=== PATIENT | female | born 1930 | race Caucasian/White ===

== ENCOUNTER 2016-08-08 12:48 | Emergency (ER) | payer OTHER ==
[2016-08-08 12:54] VITALS: BP 98/64; TEMP 98; BMI 28.3
--- NOTE | 2016-08-08 13:13 | ED.PDOC ---
General ED Provider: Dr. MARIAA SEN Chief Complaint: Cough Stated Complaint: Cough, sick 2 weeks; referred from PCP office Time Seen by Physician: 13:12 Mode of Arrival: Wheelchair Information Source: Patient, Family Primary Care Provider: RONNY PAGE Seen Within Last 72 Hours for Same Complaint By: PCP Nursing and Triage Documentation Reviewed and Agree: Yes Review of Systems - Review Of Systems Constitutional: Reports: Malaise (Pt states actually feels better today than yesterday; insisted she go to PCP today.) Eyes: Reports: No symptoms Ears, Nose, Mouth, Throat: Reports: Throat pain (Sore throat; started the episode) Cardiac: Reports: Irregular heart rate GI: Reports: No symptoms : Reports: No symptoms Musculoskeletal: Reports: No symptoms Skin: Reports: No symptoms Neurological: Reports: No symptoms All Other Systems: Reviewed and Negative Past Medical History - Past Medical History Previously Healthy: No (Multiple chronic problems - cardiac, respiratory) Endocrine: Reports: None Cardiovascular: Reports: CAD, Hypertension, CHF Respiratory: Reports: Bronchitis Hematological: Reports: Anemia Gastrointestinal: Reports: None Genitourinary: Reports: None Neuro/Psych: Reports: None Musculoskeletal: Reports: None Cancer: Reports: None Last Menstrual Period: none - Surgical History General Surgical History: Reports: Hysterectomy - Family History Family History: Reports: Unknown - Social History Smoking Status: Never smoker Hx Substance Use: No Alcohol Screening: None Physical Exam - Physical Exam Appearance: Ill-appearing (mildly - chronic changes apparent) Ill-appearing: Mild Eyes: TOI, EOMI ENT: Nose normal, Oropharynx normal Neck: Supple Respiratory: Airway patent, Breath sounds clear, Breath sounds equal, Breath sounds diminished Cardiovascular: Irregular rhythm GI/: Soft, Nontender Musculoskeletal: Normal strength, ROM intact, No edema Skin: Warm, Dry, Normal color Psychiatric: Affect appropriate, Mood appropriate Re-Evaluation - Re-Evaluation Time of Re-Evaluation: 14:40 Status: Improved Appearance: NAD Lungs: Other Skin: Warm and Dry Neuro: Alert and Oriented X3 Physician Notification - Case Discussed Physician Notified: Dr. Myers Time of Notification: 15:20 (Visited with patient in f[place]; planned DC with ABX and steroid) Critical Care Note - Critical Care Note Total Time (mins): 35 Course - Course Hematology/Chemistry: 08/08/16 13:37 08/08/16 13:37 Orders, Labs, Meds: Lab Review 08/08/16 08/08/16 08/08/16 13:09 13:37 14:40 WBC 5.87 RBC 4.40 Hgb 13.6 Hct 39.9 MCV 90.7 MCH 30.9 MCHC 34.1 RDW Coeff of Estuardo 13.7 Plt Count 176 Immature Gran % (Auto) 0.3 Neut % (Auto) 50.8 Lymph % (Auto) 31.3 [place] % (Auto) 12.3 H Eos % (Auto) 4.8 Baso % (Auto) 0.5 Immature Gran # (Auto) 0.0 Neut # 3.0 Lymph # 1.8 [place] # 0.7 Eos # 0.3 Baso # 0.0 PT 13.3 H INR 1.29 APTT 30.9 Puncture Site Rbrach O2 Saturation 99.0 ABG pH 7.461 H ABG pCO2 41.4 ABG pO2 120.0 H ABG HCO3 29.5 H ABG Total CO2 31 H ABG Base Excess 6 H O2 Delivery Device Nc Oxygen Liter Flow 3.00 Sodium 142 Potassium 3.4 L Chloride 102 Carbon Dioxide 31 Anion Gap 12.4 BUN 14 Creatinine 1.25 Estimated GFR (MDRD) 41.00 BUN/Creatinine Ratio 11.20 Glucose 82 Lactic Acid 11.8 Calcium 9.2 Total Bilirubin 0.41 AST 28 ALT 18 Alkaline Phosphatase 99 Troponin I 0.0240 B-Natriuretic Peptide 1025 H Total Protein 7.6 Albumin 3.4 Globulin 4.2 Albumin/Globulin Ratio 0.81 Procalcitonin < 0.05 Influenza A (Rapid) Negative Influenza B (Rapid) Negative Orders Category Date Time Status ABG DRAW REQUEST Stat CARDIO 08/08/16 13:09 Completed IV ACCESS ONCE CARE 08/08/16 13:05 Active ED APPLY O2 .ONCE EMERGENCY 08/08/16 13:05 Active ED FIXED INCOME MANAGER APPLIED .ONCE EMERGENCY 08/08/16 13:05 Active ED VITAL SIGNS Q1HR EMERGENCY 08/08/16 13:05 Active ARTERIAL BLOOD GAS [ABG] Stat LAB 08/08/16 13:09 Completed BLOOD CULTURE Stat LAB 08/08/16 13:37 Received BNP [B-TYPE NATRIURETIC PEPTIDE] Stat LAB 08/08/16 13:37 Completed CBC W/ AUTO DIFF Stat LAB 08/08/16 13:37 Completed COMPREHENSIVE METABOLIC PANEL Stat LAB 08/08/16 13:37 Completed LACTIC ACID Stat LAB 08/08/16 13:37 Completed MOLECULAR GROUP A STREP Stat LAB 08/08/16 14:40 Results PARTIAL THROMBOPLASTIN TIME Stat LAB 08/08/16 13:37 Completed PROCALCITONIN Stat LAB 08/08/16 13:37 Completed PT WITH INR Stat LAB 08/08/16 13:37 Completed RAPID FLU A/B Stat LAB 08/08/16 14:40 Completed STREP SCREEN Stat LAB 08/08/16 14:40 Results TROPONIN I Stat LAB 08/08/16 13:37 Completed Dexamethasone 4 mg/ml Inj [Decadron 4 mg/ml Sdv] MEDS 08/08/16 15:27 Discontinued 4 mg IM ONCE STA CHEST, 1V AP ONLY Stat RADS 08/08/16 13:05 Completed Medications Discontinued Medications Generic Name Dose Route Start Last Admin Trade Name Freq PRN Reason Stop Dose Admin Dexamethasone Sodium Phosphate 4 mg 08/08/16 15:27 08/08/16 15:34 Decadron 4 Mg/Ml Sdv IM 08/08/16 15:28 4 mg ONCE STA Administration Vital Signs: Temp Pulse Resp BP Pulse Ox 08/08/16 12:49 98.0 F 107 H 22 98/64 93 L Departure - Departure Time of Disposition: 15:30 Disposition: HOME SELF-CARE Discharge Problem: Upper respiratory infection Instructions: Upper Respiratory Infection (ED) Condition: Stable Pt referred to PMD for follow-up: Yes (Call for appointment) Additional Instructions: Take antibiotics as prescried (Keflex); follow up with primary care - call for appointment. Prescriptions: Cephalexin [Keflex] 500 mg PO Q8HR #21 capsule Allergies/Adverse Reactions: Allergies Pumpkin Adverse Reaction (Severe, Uncoded 08/08/16 12:54) Anaphylaxis Home Medications: Ambulatory Orders Diazepam [Valium] 5 mg PO Q12HR 05/11/14 Escitalopram Oxalate [Lexapro] 20 mg PO DAILY 05/11/14 Gabapentin [Neurontin] 300 mg PO BID 05/11/14 Multivitamin [Multi Vitamin Daily] 1 each PO DAILY 05/11/14 Nitroglycerin [Nitrostat] 0.4 mg SL Q5MIN X 3 DOSES PRN 05/11/14 Potassium Chloride [K-Dur] 20 meq PO DAILY 05/11/14 Rivaroxaban [Xarelto] 20 mg PO QPM 05/11/14 Tramadol HCl 50 mg PO TID PRN 05/11/14 Butalbital/Aspirin/Caffeine [Efqgqquatm-NPE-Criaagbd Cap] 1 each PO QID PRN 04/16 Pantoprazole Sodium [Protonix] 20 mg PO DAILY 07/13/14 Bisacodyl [Dulcolax] 5 mg PO MOWEFR PRN 08/08/16 Carvedilol [Coreg] 6.25 mg PO BEDTIME 08/08/16 Carvedilol [Coreg] 12.5 mg PO DAILY 08/08/16 Cephalexin [Keflex] 500 mg PO Q8HR #21 capsule 08/08/16 Diphenhydramine HCl [Benadryl] 25 mg PO PRN PRN 08/08/16 Furosemide [Lasix Tab] 20 mg PO QDAC 08/08/16 Ondansetron HCl [Zofran] 4 mg PO BID PRN 08/08/16 Oxycodone HCl [Oxycodone] 5 mg PO Q4H PRN 08/08/16 Disposition Discussed With: Patient, Family
[2016-08-08 13:50] LABS: BASOPHILS % (AUTO) 0.5 % (0.0-3.0); EOSINOPHILS # (AUTO) 0.3 K/ul (0.0-0.7); EOSINOPHILS % (AUTO) 4.8 % (0.0-7.0); HEMATOCRIT 39.9 % (37.0-47.0); HEMOGLOBIN 13.6 g/dl (12.0-16.0); IMMATURE GRANULOCYTE % (AUTO) 0.3 % (0.0-5.0); LYMPHOCYTES # (AUTO) 1.8 K/uL (0.60-3.4); LYMPHOCYTES % (AUTO) 31.3 (10.0-50.0); MEAN CORPUSCULAR HEMOGLOBIN 30.9 pg (27.0-31.0); MEAN CORPUSCULAR HGB CONC 34.1 (31.8-35.4); MEAN CORPUSCULAR VOLUME 90.7 fl (81.0-99.0); MONOCYTES # (AUTO) 0.7 K/uL (0.4-2.0); MONOCYTES % (AUTO) 12.3 (0-10); NEUTROPHILS % (AUTO) 50.8; PLATELET COUNT 176 10^3/uL (140-440); WHITE BLOOD COUNT 5.87 K/ul (4.6-10.2)
--- NOTE | 2016-08-08 13:54 | DI ---
EXAM: CHEST FRONTAL VIEW HISTORY: Cough. COMPARISON: 07/15/2014 FINDINGS: Cardiomegaly is stable. Mild to moderate aortic atherosclerosis. No notable vascular con gestion or central interstitial edema. No pleural fluid, pneumothorax or airspace consolidation. IMPRESSION: Cardiomegaly. No definite consolidated pneumonia. If symptoms persist, consider follow up with full inspiration, standing two-view chest radiography using PA and lateral technique.
[2016-08-08 14:03] LABS: ABG BASE EXCESS 6 (-2.0-2.0); ABG HCO3 29.5 (22.0-26.0); ABG PCO2 41.4 mmHg (35-45); ABG PH 7.461 (7.35-7.45)
[2016-08-08 14:04] LABS: ABG TCO2 31 (22.0-28.0)
[2016-08-08 14:08] LABS: ALBUMIN 3.4 g/dL (3.4-5.0); ALBUMIN/GLOBULIN RATIO 0.81; ANION GAP 12.4; BILIRUBIN,TOTAL 0.41 mg/dL (0.00-1.20); BUN/CREATININE RATIO 11.2; CALCIUM 9.2 mg/dL (8.2-10.2); CREATININE 1.25 mg/dL (0.60-1.30); POTASSIUM 3.4 mmol/L (3.5-5.10); TOTAL PROTEIN 7.6 g/dL (5.8-8.1)
[2016-08-08 14:15] LABS: PARTIAL THROMBOPLASTIN TIME 30.9 SEC (23.9-40.0); PROTHROMBIN TIME 13.3 SEC (9.3-11.0)
[2016-08-08 15:08] LABS: FLU INTERNAL QC INTERNAL QC VALID; RAPID FLU A NEGATIVE (NEGATIVE); RAPID FLU B NEGATIVE (NEGATIVE)
[2016-08-08] MEDS: DECADRON 4 MG/ML SDV IM STA (15:34)
== END 2016-08-08 15:56 | disposition home or self-care (01) ==
LOC: ED 12:48
DX: J06.9 Acute upper respiratory infection, unspecified (principal); I10 Essential (primary) hypertension; I25.10 Atherosclerotic heart disease of native coronary artery without angina pectoris; I50.9 Heart failure, unspecified; Z79.899 Other long term (current) drug therapy
CPT/HCPCS: 36415; 80053; 82803; 83605; 83880; 84145; 84484; 85025; 85610; 85730; 87040; 87651; 87804; 87880; 96372; 99283

== ENCOUNTER 2017-04-08 13:14 | Inpatient (IN) ==
[2017-04-08] MEDS ORDERED: SODIUM CHLORIDE 1,000 ML IV ONE (13:30)
[2017-04-08 13:40] LABS: ABG BASE EXCESS 2 (-2.0-2.0); ABG HCO3 24.7 (22.0-26.0); ABG PCO2 29.3 mmHg (35-45); ABG PH 7.534 (7.35-7.45); ABG TCO2 26 (22.0-28.0)
--- NOTE | 2017-04-08 14:03 | DI ---
EXAM: Chest one view HISTORY: Cough COMPARISON: 08/08/2016 TECHNIQUE: Single view of the chest was performed FINDINGS: Left-sided cardiac pacer. No airspace consolidation. Minimal chronic fissural thickening on the right There is no pleural effusion or pneumothorax. The heart is enlarged and unchanged in size. The mediastinal contour is unchanged, noting atherosclerosis. There are no acute abnormalitie s of the bones. IMPRESSION: Cardiomegaly. No acute cardiopulmonary process.
[2017-04-08 14:20] LABS: BASOPHILS % (AUTO) 0.7 % (0.0-3.0); EOSINOPHILS # (AUTO) 0.1 K/ul (0.0-0.7); HEMATOCRIT 48.5 % (37.0-47.0); HEMOGLOBIN 16.6 g/dl (12.0-16.0); IMMATURE GRANULOCYTE % (AUTO) 0.2 % (0.0-5.0); LYMPHOCYTES # (AUTO) 1.6 K/uL (0.60-3.4); LYMPHOCYTES % (AUTO) 26.2 (10.0-50.0); MEAN CORPUSCULAR HEMOGLOBIN 31.6 pg (27.0-31.0); MEAN CORPUSCULAR HGB CONC 34.2 (31.8-35.4); MEAN CORPUSCULAR VOLUME 92.2 fl (81.0-99.0); MONOCYTES # (AUTO) 0.5 K/uL (0.4-2.0); MONOCYTES % (AUTO) 8.6 (0-10); NEUTROPHILS # (AUTO) 3.8 K/ul (2.0-6.9); NEUTROPHILS % (AUTO) 62.3; PLATELET COUNT 140 10^3/uL (140-440); RED BLOOD COUNT 5.26 10^6/ul (4.20-5.40); WHITE BLOOD COUNT 6.03 K/ul (4.6-10.2)
[2017-04-08 14:36] LABS: PARTIAL THROMBOPLASTIN TIME 31.8 SEC (23.9-40.0); PROTHROMBIN TIME 20.7 SEC (9.3-11.0)
--- NOTE | 2017-04-08 14:51 | ED.PDOC ---
General ED Provider: Dr. SALVADOR TURNER Chief Complaint: Dizziness Stated Complaint: DIZZINESS Time Seen by Physician: 13:15 Mode of Arrival: Wheelchair Information Source: Patient, Other Exam Limitations: No limitations Primary Care Provider: RONNY PAGE Nursing and Triage Documentation Reviewed and Agree: Yes Neurological Complaint Exam - Dizziness Complaint/Exam Last Known Well: 2 DAYS AGO C/O WEAKNESS NO PAIN Onset: Gradual Duration: 2 DAYS Symptoms Are: Still present Timing: Constant Episodes Lasting: Days Initial Severity: Moderate Current Severity: Moderate Character: Reports: Lightheaded, Weak Aggravating: Reports: None Alleviating: Reports: Rest Associated Signs and Symptoms: Denies: Nausea, Vomiting, Diaphoresis, Tinnitus, Chest pain, Short of air, Palpitations, Unsteady gait, GI blood loss, Visual changes, Decreased oral intake, Change in medication, Change in diet, OTC meds, Loss of balance Cardiac Risk Factors: Reports: Hypertension, CHF, CAD CVA Risk Factors: Reports: Hypertension, CAD Related Surgical History: Reports: None JVD Present: No Carotid Bruit Present: No Glascow Coma Scale (see protocol): 15 Nystagmus Present: No Gag Reflex Present: Yes Meningeal Signs Positive: No Focal Weakness: Present: None Focal Sensory Loss: Present: None Gait: Unable [id number]-[id number]: Normal Findings Babinski Sign: Negative Right, Negative Left Differential Diagnoses: Anxiety, Dysrhythmia, Hypovolemia, Metabolic abnormalities, Vasovagal reaction Quality Indicators for Cardiac Chest Pain: EKG in 10min. Review of Systems - Review Of Systems Constitutional: Reports: Malaise, Weakness Eyes: Reports: No symptoms Ears, Nose, Mouth, Throat: Reports: No symptoms Respiratory: Reports: No symptoms Cardiac: Reports: No symptoms GI: Reports: No symptoms : Reports: No symptoms Musculoskeletal: Reports: No symptoms Skin: Reports: No symptoms Neurological: Reports: No symptoms Endocrine: Reports: No symptoms Hematologic/Lymphatic: Reports: No symptoms All Other Systems: Reviewed and Negative Past Medical History - Past Medical History Previously Healthy: No (Multiple chronic problems - cardiac, respiratory) Endocrine: Reports: None Cardiovascular: Reports: CAD, Hypertension, CHF Respiratory: Reports: Bronchitis Hematological: Reports: Anemia Gastrointestinal: Reports: None Genitourinary: Reports: None Neuro/Psych: Reports: None Musculoskeletal: Reports: None Cancer: Reports: None Last Menstrual Period: none - Surgical History General Surgical History: Reports: Hysterectomy - Family History Family History: Reports: Unknown - Social History Smoking Status: Never smoker Hx Substance Use: No Alcohol Screening: None Physical Exam - Physical Exam Appearance: Ill-appearing Ill-appearing: Moderate Pain Distress: Moderate Eyes: TOI, EOMI, Conjunctiva clear ENT: Dry mucosa Respiratory: Airway patent, Breath sounds clear, Breath sounds equal, Respirations nonlabored Cardiovascular: RRR, Pulses normal, No rub, No murmur GI/: Soft, Nontender, No masses, Bowel sounds normal, No Organomegaly Musculoskeletal: Normal strength, ROM intact, No edema, No calf tenderness Skin: Warm, Dry, Normal color Neurological: Sensation intact, Motor intact, Reflexes intact, Cranial nerves intact, Alert, Oriented Psychiatric: Affect appropriate, Mood appropriate Physician Notification - Case Discussed Physician Notified: KAYLEE Time of Notification: 14:54 Admit To: Inpatient Critical Care Note - Critical Care Note Total Time (mins): 0 Course - Course Hematology/Chemistry: 04/08/17 14:09 Orders, Labs, Meds: Lab Review 04/08/17 04/08/17 04/08/17 13:35 14:09 14:09 WBC 6.03 RBC 5.26 Hgb 16.6 H Hct 48.5 H MCV 92.2 MCH 31.6 H MCHC 34.2 RDW Coeff of Estuardo 14.7 Plt Count 140 Immature Gran % (Auto) 0.2 Neut % (Auto) 62.3 Lymph % (Auto) 26.2 [place] % (Auto) 8.6 Eos % (Auto) 2.0 Baso % (Auto) 0.7 Immature Gran # (Auto) 0.0 Neut # 3.8 Lymph # 1.6 [place] # 0.5 Eos # 0.1 Baso # 0.0 PT 20.7 H INR 2.07 APTT 31.8 Puncture Site R brach O2 Saturation 99.0 ABG pH 7.534 H* ABG pCO2 29.3 L ABG pO2 113.0 H ABG HCO3 24.7 ABG Total CO2 26 ABG Base Excess 2 [place] Test + O2 Delivery Device Nc Oxygen Liter Flow 2.00 Orders Category Date Time Status ABG DRAW REQUEST Stat CARDIO 04/08/17 13:33 Completed EKG-(ED ONLY) Stat CARDIO 04/08/17 13:33 Completed ED IV/MEDIPORT/POWERPORT .ONCE EMERGENCY 04/08/17 13:33 Active ABG Stat LAB 04/08/17 13:35 Completed B-TYPE NATRIURETIC PEPTIDE Stat LAB 04/08/17 14:09 Received BLOOD CULTURE (ED ONLY) Stat LAB 04/08/17 14:09 Received CBC W/ AUTO DIFF Stat LAB 04/08/17 14:09 Completed COMPREHENSIVE METABOLIC PANEL Stat LAB 04/08/17 14:09 Received CREATINE KINASE Stat LAB 04/08/17 14:09 Received FREE T4 (FREE THYROXINE) Stat LAB 04/08/17 14:09 Received LACTIC ACID Stat LAB 04/08/17 14:09 Received PARTIAL THROMBOPLASTIN TIME Stat LAB 04/08/17 14:09 Completed PROCALCITONIN Stat LAB 04/08/17 14:09 Received PT WITH INR Stat LAB 04/08/17 14:09 Completed THYROID STIMULATING HORMONE Stat LAB 04/08/17 14:09 Received TROPONIN I Stat LAB 04/08/17 14:09 Received URINALYSIS C & S IF INDICATED Stat LAB 04/08/17 13:32 Uncollected 0.9 % Sodium Chloride [Saline Flush] MEDS 04/08/17 13:32 Active 1 syr IVF PRN PRN CHEST, 1V AP ONLY Stat RADS 04/08/17 13:32 Completed Medications Generic Name Dose Route Start Last Admin Trade Name Freq PRN Reason Stop Dose Admin Sodium Chloride 1 syr 04/08/17 13:32 Saline Flush IVF PRN PRN To flush IV Vital Signs: Temp Pulse Resp BP Pulse Ox 04/08/17 13:15 93.8 F L 108 H 22 101/76 0 L Departure - Departure Time of Disposition: 14:54 Disposition: ADMITTED INPATIENT Discharge Problem: Dizziness, Weakness generalized, Afib Instructions: A-fib (Atrial Fibrillation) (ED) Condition: Good Pt referred to PMD for follow-up: Yes Allergies/Adverse Reactions: Allergies Pumpkin Adverse Reaction (Severe, Uncoded 04/08/17 13:23) Anaphylaxis Home Medications: Ambulatory Orders Diazepam [Valium] 5 mg PO Q12HR 05/11/14 Gabapentin [Neurontin] 300 mg PO TID PRN 05/11/14 Multivitamin [Multi Vitamin Daily] 1 each PO DAILY 05/11/14 Nitroglycerin [Nitrostat] 0.4 mg SL Q5MIN X 3 DOSES PRN 05/11/14 Potassium Chloride [K-Dur] 20 meq PO DAILY 05/11/14 Rivaroxaban [Xarelto] 20 mg PO QPM 05/11/14 Tramadol HCl 50 mg PO TID PRN 05/11/14 Butalbital/Aspirin/Caffeine [Rxjgbvyanw-IIT-Tnsjjrbn Cap] 1 each PO Q6H PRN 04/16 Furosemide [Lasix Tab] 20 mg PO QDAC 08/08/16 Ondansetron HCl [Zofran] 4 mg PO Q8H 08/08/16 Oxycodone HCl [Oxycodone] 5 mg PO Q4H PRN 08/08/16 Carvedilol [Coreg] 1.56 mg PO BID 04/08/17 Diltiazem HCl [Cardizem Cd] 180 mg PO DAILY 04/08/17 Hyoscyamine Sulfate [Levsin] 0.125 mg PO TID PRN 04/08/17 Disposition Discussed With: Patient
[2017-04-08] MEDS ORDERED: NITROSTAT SL PRN (14:58)
[2017-04-08] MEDS ORDERED: SODIUM CHLORIDE 1,000 ML IV SCH ×3 (15:00→16:00)
[2017-04-08 15:15] LABS: ALBUMIN 3.3 g/dL (3.4-5.0); ALBUMIN/GLOBULIN RATIO 0.87; BILIRUBIN,TOTAL 1.04 mg/dL (0.00-1.20); BUN/CREATININE RATIO 11.04; CALCIUM 9.6 mg/dL (8.2-10.2); CREATININE 1.63 mg/dL (0.60-1.30); POTASSIUM 3.8 mmol/L (3.5-5.10); TOTAL PROTEIN 7.1 g/dL (5.8-8.1); TROPONIN I 0.033 ng/ml (0.0000-0.4000)
[2017-04-08 15:52] LABS: ANION GAP 16.8
[2017-04-08] MEDS ORDERED: DECADRON 4 MG/ML SDV IM STA (15:58)
[2017-04-08 16:02] VITALS: BMI 23.5
[2017-04-08] MEDS: XARELTO PO SCH (16:30)
[2017-04-08] MEDS: COREG PO SCH (16:31)
[2017-04-08] MEDS ORDERED: NON-FORMULARY MEDICATION (Rivaroxaban [Xarelto] 20 MG) PO SCH (17:00)
[2017-04-08] MEDS ORDERED: COREG PO SCH (17:30)
[2017-04-08] MEDS: VALIUM PO SCH (20:29)
[2017-04-08 21:34] LABS: TROPONIN I 0.035 ng/ml (0.0000-0.4000)
[2017-04-09] MEDS: LASIX TAB PO SCH (05:38)
[2017-04-09 05:50] LABS: BASOPHILS % (AUTO) 0.3 % (0.0-3.0); HEMATOCRIT 45.6 % (37.0-47.0); HEMOGLOBIN 15.6 g/dl (12.0-16.0); IMMATURE GRANULOCYTE % (AUTO) 0.3 % (0.0-5.0); LYMPHOCYTES # (AUTO) 0.9 K/uL (0.60-3.4); LYMPHOCYTES % (AUTO) 24.2 (10.0-50.0); MEAN CORPUSCULAR HEMOGLOBIN 31.7 pg (27.0-31.0); MEAN CORPUSCULAR HGB CONC 34.2 (31.8-35.4); MEAN CORPUSCULAR VOLUME 92.7 fl (81.0-99.0); MONOCYTES # (AUTO) 0.2 K/uL (0.4-2.0); MONOCYTES % (AUTO) 4.3 (0-10); NEUTROPHILS # (AUTO) 2.6 K/ul (2.0-6.9); NEUTROPHILS % (AUTO) 70.9; PLATELET COUNT 139 10^3/uL (140-440); RED BLOOD COUNT 4.92 10^6/ul (4.20-5.40); WHITE BLOOD COUNT 3.72 K/ul (4.6-10.2)
[2017-04-09 06:21] LABS: ALBUMIN/GLOBULIN RATIO 0.81; ANION GAP 12.5; BILIRUBIN,TOTAL 0.64 mg/dL (0.00-1.20); BUN/CREATININE RATIO 12.9; CALCIUM 9.2 mg/dL (8.2-10.2); CREATININE 1.24 mg/dL (0.60-1.30); POTASSIUM 3.5 mmol/L (3.5-5.10); TOTAL PROTEIN 6.7 g/dL (5.8-8.1)
[2017-04-09] MEDS ORDERED: LASIX TAB PO SCH (06:30)
[2017-04-09 06:31] LABS: TROPONIN I 0.021 ng/ml (0.0000-0.4000)
[2017-04-09] MEDS ORDERED: COREG PO SCH (08:28)
--- NOTE | 2017-04-09 08:41 | HP ---
DATE OF SERVICE: 04/08/17 REASON FOR HOSPITALIZATION/HISTORY OF PRESENT ILLNESS: This is an 87 year old female who presented to our office. Her blood pressure was extremely low, she was pale and diaphoretic. Her blood was unreadable in our office she was brought to the emergency room for further evaluation and then she is admitted to be monitored. PAST MEDICAL HISTORY: Dilated cardiomyopathy Bilateral sciatica Severe COPD History of CHF Atrial fibrillation Depression Dyslipidemia Hypertension Permanent pacemaker Past ejection fraction 30% PAST SURGICAL HISTORY: Status post pacemaker Status post cholecystectomy REVIEW OF SYSTEMS: CONSTITUTIONAL: No night sweats. Weakness, fatigue, diaphoretic and pale. No fever or chills. HEENT: Eyes: No visual changes. No eye pain. No eye discharge. ENT: No runny nose. No epistaxis. No sinus pain. No sore throat. No odynophagia. No ear pain. No congestion. RESPIRATORY: Cough, no congestion. No hemoptysis. Shortness of breath. CARDIOVASCULAR: No angina symptoms. No CHF symptoms. No atypical chest pain for CAD. No palpitations. No orthopnea. GASTROINTESTINAL: No abdominal pain. Nausea. No diarrhea or constipation. No hematemesis. No hematochezia. GENITOURINARY: No urgency. No frequency. No dysuria. No hematuria. No obstructive symptoms. No discharge. No pain. No significant abnormal bleeding. MUSCULOSKELETAL: No musculoskeletal pain. No joint swelling. No arthritis. Generalized weakness. The patient is unable to hold her head up. NEUROLOGICAL: No headache. No neck pain. No syncope. No seizures. No dizziness. Somewhat alert. The patient is in wheelchair. PSYCHIATRIC: Not anxious. No depression. No suicidal thoughts. No homicidal thoughts. SKIN: No rash. No lesions. No wounds. Intact, pale, dry and sweaty. ENDOCRINE: No unexplained weight loss. No weight gain. HEMATOLOGIC/LYMPHATIC: No anemia. No purpura. No petechiae. No prolonged or excessive bleeding. No palpable lymph nodes. PERSONAL/FAMILY/SOCIAL HISTORY: The patient currently resides at home with her , Dipesh. She is also accompanied by Allyn, her daughter. She is a nonsmoker. She denies any alcohol or illicit drug use. She has been in a wheelchair and partially dependent of her ADL's for quite some time. MEDICATIONS: Nitrostat 0.4mg SL Q 5 minutes x3 doses PRN Valium 5mg PO Q 12 hours Tramadol HCL 50mg PO three times a day PRN Neurontin 300mg PO three times a day PRN K-Dur 20 meq PO daily Multi Vitamin PO daily Xarelto 20mg PO QPM Zqguxsaznd-AEE-Fzyergoi cap one PO Q 6 hour PRN Zofran 4mg PO Q 8 hours Lasix 20mg PO QDAC Coreg 1.56mg PO twice a day Levsin 0.125mg Po three times a day PRN Cardizem Cd 180mg PO daily ALLERGIES: Pumpkin PHYSICAL EXAMINATION: VITAL SIGNS: Temperature 93, heart rate 54, oxygen 97%, blood pressure unreadable. HEENT: Head normocephalic, atraumatic. Eyes: Extraocular muscles are intact. Pupils are equal, round and reactive to light and accommodation. Ears: No lesions. Nose appeared normal. Throat: No exudate or erythema. NECK: Supple. No JVD, no carotid bruit. No lymphadenopathy or thyromegaly. LUNGS: Severely diminished breath sounds bilaterally. Clear to auscultation. Percussion note normal. Chest symmetrical. HEART: S1, S2, no S3. No murmurs, clicks or rubs. No cyanosis or clubbing. No ascites. Pulses: Dorsalis pedis and posterior tibial pulses +1 to +2 both sides. Pace rhythm, irregular in atrial fibrillation. ABDOMEN: Soft. Nontender. Bowel sounds active times four quadrants. No CVA tenderness. No mass felt. EXTREMITIES: No edema. Full range of motion of all extremities, equal. The patient is extremely weak and cachetic. NEUROLOGIC: No focal deficit. Cranial nerves II through XII are grossly intact. No headache, no double vision or headache. She is somewhat alert and oriented to person. SKIN: Not dry. Intact. Turgor - normal. Pale,clammy and cool. LYMPHATIC: No palpable lymph nodes/no lymphedema. MUSCULOSKELETAL: Normal joints with no swelling. Muscle tone is normal. LABS: ABG on 2 liters pH 7.534, pCO2 29.3, pO2 113, base excess of 2, bicarb 24.7, TCO2 26, O2 sat 99. Sodium 143, potassium 3.8, BUN 18, creatinine 1.63, glucose 135, bilirubin 1.04, AST 42, ALT 32, CK 34, Troponin 0.03, total protein 7.1, alkaline phosphatase 111, procalcitonin less than 0.05, lactic acid 21.6, BNP 927. Chest x-ray shows cardiomegaly with no acute cardiac pulmonary process. ASSESSMENT: 1. Hypotension 2. Hyperventilation 3. Generalized weakness 4. Dehydration 5. Shortness of breath PLAN: 1. Admit to the floor 2. Routine telemetry orders 3. CBC and CMP daily 4. O2 at 2 liters 5. IV fluids D5 1/2 normal saline at 75cc an hour 6. Repeat ABG's in the morning 7. Urine for urinalysis, culture and sensitivity 8. Blood cultures times two 9. Will do echo Will follow closely. TIME SPENT: More than 70 minutes. MTDD
[2017-04-09] MEDS: VALIUM PO SCH ×2 (09:20→19:59)
[2017-04-09] MEDS: CARDIZEM CD PO SCH (09:20)
[2017-04-09] MEDS: K-DUR PO SCH (09:20)
[2017-04-09] MEDS: COREG PO SCH ×3 (09:21→16:36)
--- NOTE | 2017-04-09 11:42 | PCM.PROG ---
Attending Provider: ATTENDING PROVIDER: Dr. RONNY PAGE DATE OF SERVICE: 04/09/17 SUBJECTIVE: This 87 year old WHITE/ F was hospitalized 04/08/17. The patient is hospitalized with weakness and hypotension. REVIEW OF SYSTEMS: CONSTITUTIONAL: No night sweats. No fatigue. No fever or chills. HEENT: Eyes: No visual changes. No eye pain. No eye discharge. ENT: No runny nose. No epistaxis. No sinus pain. No odynophagia. No congestion. RESPIRATORY: No cough, no congestion. No hemoptysis. No shortness of breath. CARDIOVASCULAR: No angina symptoms. No CHF symptoms. No atypical chest pain for CAD. No palpitations. No orthopnea.. GASTROINTESTINAL: Appetite is improved. No abdominal pain. No nausea or vomiting. No diarrhea or constipation. No hematemesis. No hematochezia. GENITOURINARY: No urgency. No frequency. No dysuria. No hematuria. No obstructive symptoms. No discharge. No pain. No significant abnormal bleeding. MUSCULOSKELETAL: No musculoskeletal pain; no joint swelling. NEUROLOGICAL: Awake, alert, oriented to time, place and person. No headache. No neck pain. No syncope. No seizures. No dizziness. PSYCHIATRIC: Not anxious. No depression. No suicidal thoughts. No homicidal thoughts. SKIN: No rash. No lesions. No wounds. ENDOCRINE: No unexplained weight loss. No weight gain. HEMATOLOGIC/LYMPHATIC: No anemia. No purpura. No petechiae. No prolonged or excessive bleeding. No palpable lymph nodes. PHYSICAL EXAMINATION: GENERAL: The patient is awake, alert and oriented, lying in bed in no distress. VITAL SIGNS: Temperature 97.5 F, Pulse 81, Respiratory Rate 16, BP 103/61, Pulse Ox 95% HEENT: Head normocephalic, atraumatic. Eyes: Extraocular muscles are intact. Pupils are equal, round and reactive to light and accommodation. Ears: No lesions. Nose appeared normal. Throat: No exudate or erythema. NECK: Supple. No JVD, no carotid bruit. No lymphadenopathy or thyromegaly. LUNGS: Decreased breath sounds. Clear to auscultation. Percussion note normal. Chest symmetrical. HEART: S1, S2, no S3. No murmurs. No cyanosis or clubbing. No ascites. Pulses: Dorsalis pedis and posterior tibial pulses +1 to +2 both sides. ABDOMEN: Soft. Non-tender. Bowel sounds active. No CVA tenderness. No mass felt. EXTREMITIES: No edema. Full range of motion of all extremities, equal. NEUROLOGIC: No focal deficit. Cranial nerves II through XII are grossly intact. No headache, no double vision or headache. SKIN: Warm, dry, and intact. Turgor-better. LYMPHATIC: No palpable lymph nodes/no lymphedema. MUSCULOSKELETAL: Normal joints with no swelling. Muscle tone is normal. LAB REVIEW: 04/09/17 05:04 04/09/17 05:04 04/09/17 05:04: Sodium 142, Potassium 3.5, Chloride 104, Carbon Dioxide 29, Anion Gap 12.5, BUN 16, Creatinine 1.24, Estimated GFR (MDRD) 41.00, BUN/ Creatinine Ratio 12.90, Glucose 135 H, Calcium 9.2, Total Bilirubin 0.64, AST 36 , ALT 31, Alkaline Phosphatase 102, Total Protein 6.7, Albumin 3.0 L, Globulin 3.7, Albumin/Globulin Ratio 0.81 04/09/17 05:04: WBC 3.72 L, RBC 4.92, Hgb 15.6, Hct 45.6, MCV 92.7, MCH 31.7 H, MCHC 34.2, RDW Coeff of Estuardo 14.7, Plt Count 139 L, Immature Gran % (Auto) 0.3, Neut % (Auto) 70.9, Lymph % (Auto) 24.2, [place] % (Auto) 4.3, Eos % (Auto) 0.0, Baso % (Auto) 0.3, Immature Gran # (Auto) 0.0, Neut # 2.6, Lymph # 0.9, [place] # 0.2 L, Eos # 0.0, Baso # 0.0 04/09/17 05:04: Total Creatine Kinase 24, Troponin I 0.0210 04/08/17 21:05: Total Creatine Kinase 26, Troponin I 0.0350 ASSESSMENT: 1. Dehydration/weakness and hypotension seems to have resolved. 2. Cardiovascular status is stable with no evidence of CHF or coronary insufficiency 3. Pacemaker is capturing and sensing well. PLAN: 1. Continue same treatment Plan and coordination of the patient's care discussed in the presence of Insurance Premium Auditor and nurse. CONDITION: Stable SCRIBED BY: MARY BROWNING, Human Resources Talent Manager scribed while in presence of service performed by Dr. RONNY PAGE on 04/09/17 ([id number])
[2017-04-09 13:24] LABS: BILIRUBIN,URINE Negative (NEGATIVE); KETONES,URINE Trace (NEGATIVE); LEUKOCYTE ESTERASE ,URINE Trace (NEGATIVE); NITRITE,URINE Negative (NEGATIVE); PH,URINE 5.5 (5-9); PROTEIN,URINE 1+ (NEGATIVE); URINE, BLOOD Negative (NEGATIVE)
[2017-04-09 13:25] LABS: ADD URINE MICROSCOPIC YES
[2017-04-09 13:27] LABS: BACTERIA,URINE TRACE (NOT PRESENT); GRANULAR CASTS,URINE 0-2 (NOT PRESENT)
[2017-04-09] MEDS: XARELTO PO SCH (16:42)
[2017-04-10 04:24] LABS: BASOPHILS % (AUTO) 0.3 % (0.0-3.0); EOSINOPHILS # (AUTO) 0.1 K/ul (0.0-0.7); HEMOGLOBIN 13.2 g/dl (12.0-16.0); IMMATURE GRANULOCYTE % (AUTO) 0.2 % (0.0-5.0); LYMPHOCYTES # (AUTO) 1.7 K/uL (0.60-3.4); LYMPHOCYTES % (AUTO) 29.7 (10.0-50.0); MEAN CORPUSCULAR HEMOGLOBIN 31.6 pg (27.0-31.0); MEAN CORPUSCULAR HGB CONC 33.8 (31.8-35.4); MEAN CORPUSCULAR VOLUME 93.3 fl (81.0-99.0); MONOCYTES # (AUTO) 0.5 K/uL (0.4-2.0); MONOCYTES % (AUTO) 7.7 (0-10); NEUTROPHILS # (AUTO) 3.6 K/ul (2.0-6.9); NEUTROPHILS % (AUTO) 61.1; PLATELET COUNT 114 10^3/uL (140-440); RED BLOOD COUNT 4.18 10^6/ul (4.20-5.40); WHITE BLOOD COUNT 5.85 K/ul (4.6-10.2)
[2017-04-10 04:42] LABS: ALBUMIN 2.6 g/dL (3.4-5.0); ALBUMIN/GLOBULIN RATIO 0.93; ANION GAP 10.8; BILIRUBIN,TOTAL 0.52 mg/dL (0.00-1.20); BUN/CREATININE RATIO 16.32; CALCIUM 8.9 mg/dL (8.2-10.2); CREATININE 0.98 mg/dL (0.60-1.30); POTASSIUM 3.8 mmol/L (3.5-5.10); TOTAL PROTEIN 5.4 g/dL (5.8-8.1)
[2017-04-10] MEDS: LASIX TAB PO SCH (05:34)
[2017-04-10] MEDS ORDERED: DECADRON 4 MG/ML SDV IM STA (08:16)
[2017-04-10] MEDS: COREG PO SCH ×2 (08:50→17:05)
[2017-04-10] MEDS: CARDIZEM CD PO SCH (08:50)
[2017-04-10] MEDS: VALIUM PO SCH ×2 (08:50→20:06)
[2017-04-10] MEDS: K-DUR PO SCH (08:50)
--- NOTE | 2017-04-10 10:37 | PN ---
DATE OF SERVICE: 04/10/17 SUBJECTIVE: The patient was hospitalized with hypotension, weakness and fatigue. The patient was hypothermic but her temperature came up quickly. She did not have any evidence of any sepsis. Her cardiovascular status seem be stable with chronic congestive heart failure, endstage. She perked up and felt better. The blood pressure went up. IV fluids has been given slowly. Hydration status improved and her appetite improved. She looked a lot better. REVIEW OF SYSTEMS: CONSTITUTIONAL: No night sweats. No fatigue, malaise, lethargy. No fever or chills. Weakness. HEENT: Eyes: No visual changes. No eye pain. No eye discharge. ENT: No runny nose. No epistaxis. No sinus pain. No sore throat. No odynophagia. No congestion. RESPIRATORY: No cough, no congestion. No hemoptysis. No shortness of breath. CARDIOVASCULAR: No angina symptoms. No CHF symptoms. No atypical chest pain for CAD. No palpitations. No orthopnea. GASTROINTESTINAL: No abdominal pain. No nausea or vomiting. No diarrhea or constipation. No hematemesis. No hematochezia. GENITOURINARY: No urgency. No frequency. No dysuria. No hematuria. No obstructive symptoms. No discharge. No pain. No significant abnormal bleeding. MUSCULOSKELETAL: No musculoskeletal pain; no joint swelling. NEUROLOGICAL: No headache. No neck pain. No syncope. No seizures. No dizziness. PSYCHIATRIC: Not anxious. No depression. No suicidal thoughts. No homicidal thoughts. SKIN: No rash. No lesions. No wounds. ENDOCRINE: No unexplained weight loss. No weight gain. HEMATOLOGIC/LYMPHATIC: No anemia. No purpura. No petechiae. No prolonged or excessive bleeding. No palpable lymph nodes. PHYSICAL EXAMINATION: GENERAL: The patient is oriented to time, place and person. HEENT: Head normocephalic, atraumatic. Eyes: Extraocular muscles are intact. Pupils are equal, round and reactive to light and accommodation. Ears: No lesions. Nose appeared normal. Throat: No exudate or erythema. NECK: Supple. No JVD, no carotid bruit. No lymphadenopathy or thyromegaly. LUNGS: Decreased breath sounds. Clear to auscultation. Percussion note normal. Chest symmetrical. HEART: S1, S2, no S3. No murmurs. No cyanosis or clubbing. No ascites. Pulses: Dorsalis pedis and posterior tibial pulses +1 to +2 both sides. ABDOMEN: Soft. Nontender. Bowel sounds active. No CVA tenderness. No mass felt. EXTREMITIES: No edema. Full range of motion of all extremities, equal. NEUROLOGIC: No focal deficit. Cranial nerves II through XII are grossly intact. No headache, no double vision or headache. SKIN: Not dry. Intact. Turgor - normal. LYMPHATIC: No palpable lymph nodes/no lymphedema. MUSCULOSKELETAL: Normal joints with no swelling. Muscle tone is normal. ASSESSMENT: 1. Dehydration 2. Hypotension resolved 3. Chronic CHF 4. Coronary artery disease 5. Pacemaker PLAN: 1. Continue IV fluids 2. 1/2 cc Decadron 3. Supportive measures 4. Will do echocardiogram to evaluate LV function 5. The patient is DNR 6. The patient was followed by one of the [employer]ologist along with me but they have decided not to go any invasive intervention. CONDITION: Stable. TIME SPENT: More than 30 minutes. Plan and coordination of the patient's care discussed in the presence of nurse. CRISTINA
[2017-04-10] MEDS ORDERED: ROCEPHIN 1 GM in SODIUM CHLORIDE 50 ML IV STA (15:01)
--- NOTE | 2017-04-10 15:05 | PN ---
DATE OF SERVICE: 04/08/17 SUBJECTIVE: The patient was hospitalized after seen in the office with severe hypotension, severe weakness, fatigue and confusion. The patient was wheelchair and she was wheeled to the emergency room from my office. She was again seen on the floor when she was hospitalized. The patient's condition has improved. Blood pressure systolic in the hospital was noted to be approximately 100, her pulse was 90 per minute. The patient's EKG showed underline atrial fibrillation, pacemaker capturing and sensing well. The patient had hypothermia type of temperature but now it has been noted to be 97.6. REVIEW OF SYSTEMS: CONSTITUTIONAL: No night sweats. No fatigue, malaise, lethargy. No fever or chills. HEENT: Eyes: No visual changes. No eye pain. No eye discharge. ENT: No runny nose. No epistaxis. No sinus pain. No sore throat. No odynophagia. No congestion. RESPIRATORY: No cough, no congestion. No hemoptysis. No shortness of breath. CARDIOVASCULAR: No angina symptoms. No CHF symptoms. No atypical chest pain for CAD. No palpitations. No orthopnea. GASTROINTESTINAL: No abdominal pain. No nausea or vomiting. No diarrhea or constipation. No hematemesis. No hematochezia. GENITOURINARY: No urgency. No frequency. No dysuria. No hematuria. No obstructive symptoms. No discharge. No pain. No significant abnormal bleeding. MUSCULOSKELETAL: No musculoskeletal pain; no joint swelling. NEUROLOGICAL: No headache. No neck pain. No syncope. No seizures. No dizziness. PSYCHIATRIC: Not anxious. No depression. No suicidal thoughts. No homicidal thoughts. SKIN: No rash. No lesions. No wounds. ENDOCRINE: No unexplained weight loss. No weight gain. HEMATOLOGIC/LYMPHATIC: No anemia. No purpura. No petechiae. No prolonged or excessive bleeding. No palpable lymph nodes. PHYSICAL EXAMINATION: HEENT: Head normocephalic, atraumatic. Eyes: Extraocular muscles are intact. Pupils are equal, round and reactive to light and accommodation. Ears: No lesions. Nose appeared normal. Throat: No exudate or erythema. NECK: Supple. No JVD, no carotid bruit. No lymphadenopathy or thyromegaly. LUNGS: Decreased breath sounds but clear to auscultation. Percussion note normal. Chest symmetrical. HEART: S1, S2, no S3. No murmurs. No cyanosis or clubbing. No ascites. Pulses: Dorsalis pedis and posterior tibial pulses +1 to +2 both sides. ABDOMEN: Soft. Nontender. Bowel sounds active. No CVA tenderness. No mass felt. EXTREMITIES: No edema. Full range of motion of all extremities, equal. NEUROLOGIC: No focal deficit. Cranial nerves II through XII are grossly intact. No headache, no double vision or headache. SKIN: Not dry. Intact. Turgor - normal. LYMPHATIC: No palpable lymph nodes/no lymphedema. MUSCULOSKELETAL: Normal joints with no swelling. Muscle tone is normal. LABS: Chest x-ray showed cardiomegaly, no acute changes. CBC hgb 16, hct 48, WBC 6, 000 normal differential, pO2 113, pCO2 29, pH 7.53 with 99% saturation with 2 liters. INR 2.07, Lactic acid 21.6 normal is 20. BNP 927. ASSESSMENT: 1. Hypotension likely from dehydration PLAN: 1. Will give slow Hydration with IV fluids 2. Give 1 cc Decadron 3. Continue all the medications 4. Will decrease the dose of Coreg 5. Will do echocardiogram to evaluate the cardiac function. The patient has very low ejection fraction. 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 CONDITION: Stable The patient was seen and examined with the Nurse Practitioner. TIME SPENT: More than 30 minutes. Plan and coordination of the patient's care discussed in the presence of nurse. CRISTINA
[2017-04-10] MEDS: DEXTROSE 5%-1/2NS IV SOLUTION 1,000 ML IV SCH (15:15)
[2017-04-10] MEDS: XARELTO PO SCH (17:06)
[2017-04-11] MEDS ORDERED: TYLENOL PO STA (00:40)
[2017-04-11] MEDS: LASIX TAB PO SCH (05:45)
[2017-04-11] MEDS: DEXTROSE 5%-1/2NS IV SOLUTION 1,000 ML IV SCH (05:47)
[2017-04-11] MEDS ORDERED: ROCEPHIN 1 GM in SODIUM CHLORIDE 50 ML IV STA (08:31)
[2017-04-11] MEDS: COREG PO SCH (08:44)
[2017-04-11] MEDS: K-DUR PO SCH (08:44)
[2017-04-11] MEDS: VALIUM PO SCH (08:45)
[2017-04-11] MEDS: CARDIZEM CD PO SCH (08:45)
[2017-04-11 09:03] VITALS: BP 112/64; TEMP 97.6
--- NOTE | 2017-04-11 09:04 | PCM.PROG ---
Attending Provider: ATTENDING PROVIDER: Dr. RONNY PAGE This patient is seen with Jazmine Armstrong, Nurse Practitioner. DATE OF SERVICE: 04/11/17 SUBJECTIVE: This 87 year old WHITE/ F was hospitalized 04/08/17. The patient is sitting up in bed, alert. She is wanting to go home. Urine culture showed 60 to 70,000 E. coli, sensitive to Rocephin. REVIEW OF SYSTEMS: CONSTITUTIONAL: Generalized weakness. No night sweats. No fever or chills. HEENT: Eyes: No visual changes. No eye pain. No eye discharge. ENT: No runny nose. No epistaxis. No sinus pain. No odynophagia. No congestion. RESPIRATORY: No cough, no congestion. No hemoptysis. No shortness of breath. CARDIOVASCULAR: No angina symptoms. No CHF symptoms. No atypical chest pain for CAD. No palpitations. No orthopnea.. GASTROINTESTINAL: No abdominal pain. No nausea or vomiting. No diarrhea or constipation. No hematemesis. No hematochezia. GENITOURINARY: No urgency. No frequency. No dysuria. No hematuria. No obstructive symptoms. No discharge. No pain. No significant abnormal bleeding. MUSCULOSKELETAL: No musculoskeletal pain; no joint swelling. NEUROLOGICAL: Awake, alert, oriented to time, place and person. No headache. No neck pain. No syncope. No seizures. No dizziness. PSYCHIATRIC: Not anxious. No depression. No suicidal thoughts. No homicidal thoughts. SKIN: No rash. No lesions. No wounds. ENDOCRINE: No unexplained weight loss. No weight gain. HEMATOLOGIC/LYMPHATIC: No anemia. No purpura. No petechiae. No prolonged or excessive bleeding. No palpable lymph nodes. PHYSICAL EXAMINATION: GENERAL: The patient is awake, alert and oriented, sitting in bed in no distress. VITAL SIGNS: Temperature 97.4 F, Pulse 86, Respiratory Rate 20, BP 108/78, Pulse Ox 99% HEENT: Head normocephalic, atraumatic. Eyes: Extraocular muscles are intact. Pupils are equal, round and reactive to light and accommodation. Ears: No lesions. Nose appeared normal. Throat: No exudate or erythema. NECK: Supple. No JVD, no carotid bruit. No lymphadenopathy or thyromegaly. LUNGS: Diminished breath sounds bilaterally. Clear to auscultation. Percussion note normal. Chest symmetrical. HEART: Irregular heart rate. S1, S2, no S3. No murmurs. No cyanosis or clubbing. No ascites. Pulses: Dorsalis pedis and posterior tibial pulses +1 to +2 both sides. ABDOMEN: Soft. Non-tender. Bowel sounds active. No CVA tenderness. No mass felt. EXTREMITIES: Trace pedal edema. Full range of motion of all extremities, equal. NEUROLOGIC: No focal deficit. Cranial nerves II through XII are grossly intact. No headache, no double vision or headache. SKIN: Not dry. Intact. Turgor-normal. LYMPHATIC: No palpable lymph nodes/no lymphedema. MUSCULOSKELETAL: Normal joints with no swelling. Muscle tone is normal. LAB REVIEW: 04/10/17 03:50 04/10/17 03:50 ASSESSMENT: 1. Dehydration/weakness and hypotension seems to have resolved. 2. Cardiovascular status is stable with no evidence of CHF or coronary insufficiency 3. Pacemaker is capturing and sensing well. 4. UTI 5. Atrial fib PLAN: 1. Echocardiogram today 2. Anticipate discharge home 3. Rocephin, one more dose 4. Will start Keflex 500 mg t.i.d. times 7 days to begin on Friday 5. Valium 2.5 mg a.m. 5 mg p.m. 6. CBC, CMP Plan and coordination of the patient's care discussed in the presence of Retarder Operator and nurse. CONDITION: Stable SCRIBED BY: MARY BROWNING Appliances Sample Maker scribed while in presence of service performed by Dr. Page/Jazmine Armstrong APRN on 04/11/17 ([id number])
[2017-04-11 09:18] LABS: BASOPHILS % (AUTO) 0.1 % (0.0-3.0); EOSINOPHILS % (AUTO) 0.3 % (0.0-7.0); HEMATOCRIT 42.9 % (37.0-47.0); HEMOGLOBIN 14.7 g/dl (12.0-16.0); IMMATURE GRANULOCYTE % (AUTO) 0.1 % (0.0-5.0); LYMPHOCYTES # (AUTO) 1.6 K/uL (0.60-3.4); LYMPHOCYTES % (AUTO) 18.8 (10.0-50.0); MEAN CORPUSCULAR HEMOGLOBIN 31.4 pg (27.0-31.0); MEAN CORPUSCULAR HGB CONC 34.3 (31.8-35.4); MEAN CORPUSCULAR VOLUME 91.7 fl (81.0-99.0); MONOCYTES # (AUTO) 0.4 K/uL (0.4-2.0); MONOCYTES % (AUTO) 4.9 (0-10); NEUTROPHILS # (AUTO) 6.6 K/ul (2.0-6.9); NEUTROPHILS % (AUTO) 75.8; PLATELET COUNT 132 10^3/uL (140-440); RED BLOOD COUNT 4.68 10^6/ul (4.20-5.40); WHITE BLOOD COUNT 8.69 K/ul (4.6-10.2)
[2017-04-11 09:40] LABS: BUN/CREATININE RATIO 16.86; CALCIUM 9.1 mg/dL (8.2-10.2); CREATININE 0.83 mg/dL (0.60-1.30)
[2017-04-12] MEDS ORDERED: K-DUR PO SCH (08:00)
--- NOTE | 2017-04-14 08:20 | ECHO2D ---
Date of Exam: 04/11/17 Ordering Physician: RONNY PAGE Room #: 102 Reason for Echo: EVALUATE LVE, A-FIB, CHF, HTN M-Mode Normal Adult Results LV Dimensions Normal Adult Results AoV Opening excursions >1.6 >1.6 LVEDD-base- 3.5-5.8 6.7 Ao root dimensions 2.0-3.7 3.9 LVESD-base- 3.1-4.6 L. Atrium dimensions 1.9-3.8 5.0 Post. Wall thickness 0.8-1.1 1.1 IV septum (thickness) 0.7-1.2 1.1 Post. Wall excursion 0.72-1.3 NORMAL Septal motion Systolic motion R. Ventricular cavity 1.5-2.0 3.0 LVEF 60% 26% Paradoxical septal wall motion YES 2-D : HYPOKINETIC, PARADOXICAL SEPTAL WALL MOTION, ENLARGED LEFT ATRIAL AND LEFT VENTRICLE CAVITIES, NO EFFUSION, NO THROMBUS, MITRAL VALVES PROLAPSE NOTED LEFT PARASTERNAL LONG ASIX AND APICAL FOUR CHAMBER VIEW. M-MODE: MV: MITRAL VALVE PROLAPSE PARASYSTOLIC AV: NORMAL TV: NORMAL PV: PULMONARY HYPERTENSION CHAMBER SIZE: ENLARGED LEFT ATRIAL, LEFT VENTRICLE AND RIGHT CAVITY WALL MOTION: PARADOXICAL SEPTAL WALL/DYSKINETIC SEPTUM PERICARDIUM: NORMAL INTERPRETATION: 1. BORDERLINE LEFT VENTRICULAR HYPERTROPHY 2. ENLARGED LEFT VENTRICLE, RIGHT VENTRICLE AND LEFT ATRIAL CAVITIES 3. MITRAL VALVE PROLAPSE--PARASYSTOLIC 4. MODERATE MITRAL REGURGITATION 5. PARADOXICAL SEPTAL WALL MOTION/DYSKINETIC MAYBE 6. LEFT VENTRICULAR EJECTION FRACTION 25% MTDD
--- NOTE | 2017-04-14 09:19 | PN ---
DATE OF SERVICE: 04/11/17 SUBJECTIVE: The patient is doing very well. She was hydrated and hypotensive. She is feeling a lot better. Her blood pressure is more than 100 systolic. She is eating better and her appetite has improved. She is alert and oriented to time, place and person. and daughter as usual by the bedside. They are happy with her progress. Again, discussed the importance of eating three to four meals and making sure some food supplements. PHYSICAL EXAMINATION: HEENT: Head normocephalic, atraumatic. Eyes: Extraocular muscles are intact. Pupils are equal, round and reactive to light and accommodation. Ears: No lesions. Nose appeared normal. Throat: No exudate or erythema. NECK: Supple. No JVD, no carotid bruit. No lymphadenopathy or thyromegaly. LUNGS: Decreased breath sounds clear to auscultation. Percussion note normal. Chest symmetrical. HEART: S1, S2, no S3. No murmurs. No cyanosis or clubbing. No ascites. Pulses: Dorsalis pedis and posterior tibial pulses +1 to +2 both sides. ABDOMEN: Soft. Nontender. Bowel sounds active. No CVA tenderness. No mass felt. EXTREMITIES: No edema. Full range of motion of all extremities, equal. NEUROLOGIC: No focal deficit. Cranial nerves II through XII are grossly intact. No headache, no double vision or headache. SKIN: Not dry. Intact. Turgor - normal. LYMPHATIC: No palpable lymph nodes/no lymphedema. MUSCULOSKELETAL: Normal joints with no swelling. Muscle tone is normal. CONDITION: Stable. PLAN: 1. The patient will have echocardiogram before discharge The patient was seen and examined with Nurse Practitioner and Senior National Account Manager. TIME SPENT: More than 30 minutes. Plan and coordination of the patient's care discussed in the presence of nurse. ADDENDUM: Echo report borderline LVH, Enlarged LV, RV and LA cavities. Mitral valve prolapse been systolic with moderate W[place]. Paradoxical septal wall motion is less/ Dyskinetic septum difficult to say or both of them with LV ejection fraction 25% . MTDD
--- NOTE | 2017-04-14 09:20 | PN ---
04/08/17: Level 5 04/09/17: Intermediate 04/10/17: Intermediate 04/11/17: D as in discharge MTDD
--- NOTE | 2017-04-16 15:20 | DS ---
DATE OF SERVICE: 04/11/17 FINAL DIAGNOSIS: 1. HYPOTENSION 2. GENERALIZED WEAKNESS 3. DEHYDRATION 4. UTI, E-COLI ORGANISM 5. DILATED CARDIOMYOPATHY 6. SEVERE COPD 7. CHF 8. HISTORY OF HYPERTENSION 9. CAD 10. ATRIAL FIBRILLATION ON XARELTO 11. GERD 12. 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 CHOLECYSTECTOMY (2017) 15. PACEMAKER DISCHARGE INSTRUCTIONS: Followup appointment: Dr. Rose/Jazmine Armstrong APRN on April 16 at 1:45. Resume [facility] for nursing vitals/assessment/vital signs and Physical and Occupational Therapy. Continue use of oxygen at 2L per nasal cannula. MEDICATIONS AT DISCHARGE: Coreg 1.56 mg p.o. b.i.d with meal BRETT Valium 2.5 mg p.o. q.12hr BRETT Diltiazem 180 mg p.o. daily BRETT Lasix 20 mg p.o. q.d a.c. BRETT Nitrostat 0.4 mg SL q.5 min times three doses p.r.n. K-Dur 20 mEq p.o. daily with meal BRETT Xarelto 20 mg p.o. q.p.m. BRETT Gabapentin 300 mg t.i.d. p.r.n. Multivitamin one daily Tramadol 50 mg t.i.d. p.r.n. Ondansetron (Zofran) 4 mg p.o. q.8h p.r.n. Hyoscyamine (Levsin) 0.125 mg t.i.d. p.r.n. NEW PRESCRIPTIONS: Keflex 500 mg t.i.d. for 7 days MEDICATION CHANGE: Decrease Valium to 1/2 tablet (2.5 mg) in the morning Take the whole tablet (5 mg) at night DIET INSTRUCTIONS: Regular as tolerated, small frequent meals encouraged (5-6 small meals daily) ACTIVITY: Gradually resume as tolerated. Use assistive device as needed. SMOKING: N/A DISEASE SPECIFIC EDUCATION: Medication change Nutrition Prescription Urinary tract infection HOSPITAL COURSE: This is an 87-year-old white female who presented to our office. Upon being seen in our office her blood pressure was unreadable it was so low. She was diaphoretic, clammy, cool, short of breath. She was going in and out of consciousness. She was taken to the emergency room where surprisingly her lab values showed mild dehydration. Her chest x-ray was normal. She was subsequently admitted for rehydration with IV fluids. Very slowly over the past several days, her lab values have improved. Kidney function is normal today. BUN 16, creatinine 0.98. Hemoglobin 13.2, sodium 142, potassium 3.8 today. A UA was done which showed that she did have a urinary tract infection although she was asymptomatic. This is likely due to urinary retention. She does not want to get out of bed and go and she does not drink very much. It was positive for E. coli and sensitive to Rocephin. She received 1 gm of IV Rocephin yesterday and then 1 gm of IV Rocephin today. She will go home on Keflex 500 mg t.i.d. to start tomorrow for the next 7 days. She has been on Valium 5 mg b.i.d. for a long time however it was felt that it made her extremely drowsy. Over the past several days she has slept most of the day so we have decreased her Valium to 2.5 mg in the morning and then she can receive her 5 mg of Valium at night in order to help her sleep. An echo was performed by Dr. Rose due to the finding of cardiomegaly on the chest x-ray. Please see his report. She was placed on routine telemetry on admission and her strips have shown a paced rhythm with underlying atrial fibrillation. It was made clear that she could not go home unless she started to eat. The patient ate 25 to 50% of her meals yesterday and around 50% of all of her meals today. A commercial cleaner consult was ordered. Due to her bradycardia her Coreg was decreased to 1.56 mg b.i.d. Today , on day of discharge, the patient is alert, awake, her blood pressure has been staying steady. This morning it was 108/78. She was able to talk and carry on a conversation. She had been up in the chair yesterday and was going to get up in the chair today so we will discharge her home in stable condition. It was discussed with her the need for her to continue to drink quite a bit of water, increase her fluid intake, elevate her legs as well as the need for her to eat as well. Will followup with her early in the office next week. TIME SPENT: More than 60 minutes. CRISTINA
== END 2017-04-11 14:37 | disposition home or self-care (01) | DRG 315 ==
LOC: ED 13:14 → MEDSURG A 15:24
PROVIDERS: ADMIT Internal Medicine; ATTEND Internal Medicine
DX: I95.9 Hypotension, unspecified (principal); N39.0 Urinary tract infection, site not specified; I42.0 Dilated cardiomyopathy; I50.9 Heart failure, unspecified; I48.91 Unspecified atrial fibrillation; R06.02 Shortness of breath; I51.7 Cardiomegaly; R42 Dizziness and giddiness; I10 Essential (primary) hypertension; E86.0 Dehydration; I34.1 Nonrheumatic mitral (valve) prolapse; J44.9 Chronic obstructive pulmonary disease, unspecified; I25.10 Atherosclerotic heart disease of native coronary artery without angina pectoris; K21.9 Gastro-esophageal reflux disease without esophagitis; F32.9 Major depressive disorder, single episode, unspecified; M54.32 Sciatica, left side; M54.31 Sciatica, right side; R53.1 Weakness; Z95.0 Presence of cardiac pacemaker; Z79.01 Long term (current) use of anticoagulants; Z79.899 Other long term (current) drug therapy; B96.20 Unspecified Escherichia coli [E. coli] as the cause of diseases classified elsewhere; Z16.11 Resistance to penicillins; Z90.49 Acquired absence of other specified parts of digestive tract
CPT/HCPCS: 36415; 80048; 80053; 81001; 82550; 82803; 83605; 83880; 84145; 84439; 84443; 84484; 85025; 85610; 85730; 87040; 87086; 87186; 93005; 93010; 96360; 97802; 99284

== ENCOUNTER 2017-06-07 09:10 | Inpatient (IN) ==
[2017-06-07] MEDS ORDERED: DUONEB NEB STA (09:13)
[2017-06-07] MEDS ORDERED: SOLU-MEDROL 125 MG IVP STA (09:15)
--- NOTE | 2017-06-07 09:22 | ED.PDOC ---
General ED Provider: Dr. FAN VERMA Chief Complaint: Shortness of Air Stated Complaint: Patient is an 87 year old female who comes to the Er with symtoms of shortness of breath and anxiety about not being able to breath well. has been having a productive cough. She was recently admitted at [facility] for 5 days and was discharged home yesterday. Family also states that her blood pressure has been low. Pateint and family wishes DNR. Time Seen by Physician: 09:18 Mode of Arrival: Ambulance Information Source: Family Exam Limitations: No limitations Primary Care Provider: RONNY PAGE Nursing and Triage Documentation Reviewed and Agree: Yes Reviewed sepsis parameters & appropriate labs ordered?: Yes System Inflammatory Response Syndrome: Pulse >90 BPM, Resp >20/Minute Sepsis Protocol: For patient's 13 years and over: Temp is 96.8 and below OR 101 and greater Pulse >90 BPM Resp >20/minute Acutely Altered Mental Status Are patient's symptoms suggestive of a new infection, such as: -Pneumonia -Skin, Soft Tissue -Endocarditis -UTI -Bone, Joint Infection -Implantable Device -Acute Abdominal Infection -Wound Infection -Meningitis -Blood Stream Catheter Infection -Unknown Review of Systems - Review Of Systems Constitutional: Reports: Weakness, Loss of appetite Eyes: Reports: No symptoms Ears, Nose, Mouth, Throat: Reports: No symptoms Respiratory: Reports: Cough, Short of air Cardiac: Reports: No symptoms GI: Reports: No symptoms : Reports: No symptoms Musculoskeletal: Reports: No symptoms Skin: Reports: No symptoms Neurological: Reports: Anxiety Hematologic/Lymphatic: Reports: No symptoms All Other Systems: Reviewed and Negative Past Medical History - Past Medical History Previously Healthy: No (Multiple chronic problems - cardiac, respiratory) Endocrine: Reports: None Cardiovascular: Reports: CAD, Hypertension, CHF Respiratory: Reports: Bronchitis, Pneumonia Hematological: Reports: Anemia Gastrointestinal: Reports: None Genitourinary: Reports: None Neuro/Psych: Reports: Anxiety, Depression Musculoskeletal: Reports: None Cancer: Reports: None - Surgical History General Surgical History: Reports: Hysterectomy - Family History Family History: Reports: Unknown - Social History Smoking Status: Never smoker Hx Substance Use: No Alcohol Screening: None Physical Exam - Physical Exam Appearance: Ill-appearing Ill-appearing: Severe Pain Distress: None Eyes: TOI, EOMI, Conjunctiva clear ENT: Oropharynx normal Neck: Supple Respiratory: Crackles, Rhonchi, Wheezes Cardiovascular: Tachycardia GI/: Soft, Nontender Musculoskeletal: Edema Skin: Warm, Dry, Normal color Neurological: Sensation intact, Alert, Oriented Psychiatric: Anxious Interpretation - Radiology Interpretation Radiology Interpretation By: ED Physician Radiology Results: Positive (Cardiomegaly. Pulmonary vascular conjestion. cannot rule out infiltrates.) Exam Interpreted: Portable CXR - EKG Interpretation Time of EKG #1: 09:40 Rate: Normal Rhythm: Other (demand pacemaker, Atrial fibillaion.) [place]: Left Critical Care Note - Critical Care Note Total Time (mins): 35 Course - Course Hematology/Chemistry: 06/07/17 09:35 06/07/17 09:35 Orders, Labs, Meds: Lab Review 06/07/17 06/07/17 06/07/17 09:35 09:35 09:35 WBC 13.59 H RBC 4.45 Hgb 14.0 Hct 42.4 MCV 95.3 MCH 31.5 H MCHC 33.0 RDW Coeff of Estuardo 17.0 H Plt Count 127 L Immature Gran % (Auto) 0.4 Neut % (Auto) 85.1 Lymph % (Auto) 5.0 L [place] % (Auto) 9.3 Eos % (Auto) 0.1 Baso % (Auto) 0.1 Immature Gran # (Auto) 0.1 Neut # 11.6 H Lymph # 0.7 [place] # 1.3 Eos # 0.0 Baso # 0.0 Sodium 144 Potassium 3.3 L Chloride 104 Carbon Dioxide 30 Anion Gap 13.3 BUN 19 H Creatinine 1.24 Estimated GFR (MDRD) 41.00 BUN/Creatinine Ratio 15.32 Glucose 132 H Lactic Acid Calcium 8.9 Total Bilirubin 1.6 H AST 37 ALT 38 Alkaline Phosphatase 101 Total Creatine Kinase 17 Troponin I 0.1260 B-Natriuretic Peptide 4059 H Total Protein 6.5 Albumin 2.8 L Globulin 3.7 Albumin/Globulin Ratio 0.76 Procalcitonin Urine Color Urine Clarity Urine pH Ur Specific [place] Urine Protein Urine Glucose (UA) Urine Ketones Urine Blood Urine Nitrite Urine Bilirubin Urine Urobilinogen Ur Leukocyte Esterase Urine Microscopic WBC Ur Squamous Epith Cells Ur Transition Epith Cell Urine Bacteria 06/07/17 06/07/17 06/07/17 09:35 09:35 10:28 WBC RBC Hgb Hct MCV MCH MCHC RDW Coeff of Estuardo Plt Count Immature Gran % (Auto) Neut % (Auto) Lymph % (Auto) [place] % (Auto) Eos % (Auto) Baso % (Auto) Immature Gran # (Auto) Neut # Lymph # [place] # Eos # Baso # Sodium Potassium Chloride Carbon Dioxide Anion Gap BUN Creatinine Estimated GFR (MDRD) BUN/Creatinine Ratio Glucose Lactic Acid 21.3 H Calcium Total Bilirubin AST ALT Alkaline Phosphatase Total Creatine Kinase Troponin I B-Natriuretic Peptide Total Protein Albumin Globulin Albumin/Globulin Ratio Procalcitonin 0.47 Urine Color Yellow Urine Clarity Clear Urine pH 5.5 Ur Specific [place] 1.015 Urine Protein Negative Urine Glucose (UA) Negative Urine Ketones Negative Urine Blood Negative Urine Nitrite Negative Urine Bilirubin Negative Urine Urobilinogen 0.2 Ur Leukocyte Esterase Trace Urine Microscopic WBC 5-10 Ur Squamous Epith Cells 2-5 Ur Transition Epith Cell 2-5 Urine Bacteria 1+ Orders Category Date Time Status ADMIT PATIENT INPATIENT .TO [facility] (MONITORED BED) ADMISSION 06/07/17 10: 51 Active EKG-(ED ONLY) Stat CARDIO 06/07/17 09:13 Completed NEBULIZER TREATMENT Routine CARDIO 06/07/17 11:06 Active NEBULIZER TREATMENT Stat CARDIO 06/07/17 09:14 Completed OXYGEN Routine CARDIO 06/07/17 10:51 Active ACTIVITY .Early Mobilization for VTE Prevention CARE 06/07/17 10:56 Active INTAKE & OUTPUT Q8HR CARE 06/07/17 10:53 Active INTAKE & OUTPUT Q8HR CARE 06/07/17 11:05 Active TELEMETRY MONITORING TELE CARE 06/07/17 10:56 Active VITAL SIGNS Q4HR CARE 06/07/17 10:56 Active 2 GRAM SODIUM DIET DIETARY 06/07/17 Lunch Ordered ED APPLY O2 .ONCE EMERGENCY 06/07/17 09:13 Active ED BLENDER MACHINE OPERATOR APPLIED .ONCE EMERGENCY 06/07/17 09:13 Active B-TYPE NATRIURETIC PEPTIDE Stat LAB 06/07/17 09:35 Completed BASIC METABOLIC PANEL DAILY@0600 LAB 06/08/17 06:00 Ordered BASIC METABOLIC PANEL DAILY@0600 LAB 06/09/17 06:00 Ordered BLOOD CULTURE (ED ONLY) Stat LAB 06/07/17 09:35 Received CBC W/ AUTO DIFF DAILY@0600 LAB 06/08/17 06:00 Ordered CBC W/ AUTO DIFF DAILY@0600 LAB 06/09/17 06:00 Ordered CBC W/ AUTO DIFF Stat LAB 06/07/17 09:35 Completed COMPREHENSIVE METABOLIC PANEL Stat LAB 06/07/17 09:35 Completed CREATINE KINASE Stat LAB 06/07/17 09:35 Completed LACTIC ACID Stat LAB 06/07/17 09:35 Completed PROCALCITONIN Stat LAB 06/07/17 09:35 Completed TROPONIN I Stat LAB 06/07/17 09:35 Completed URINALYSIS C & S IF INDICATED Stat LAB 06/07/17 10:28 Completed URINE CULTURE Stat LAB 06/07/17 10:28 Received Acetaminophen [Tylenol] MEDS 06/07/17 10:51 Active 650 mg PO Q4H PRN Ceftriaxone Sodium [Rocephin] 1 gm MEDS 06/07/17 11:00 Active 0.9 % Sodium Chloride [Sodium Chloride] 50 ml IV DAILY Diazepam [Valium] MEDS 06/07/17 21:00 Active 5 mg PO BID Docusate Sodium [Colace] MEDS 06/07/17 11:06 Active 100 mg PO DAILY PRN Enoxaparin Sodium [Lovenox] MEDS 06/08/17 09:00 Active 40 mg SUBCUT DAILY Escitalopram Oxalate [Lexapro] MEDS 06/08/17 09:00 Active 10 mg PO DAILY Eszopiclone [Lunesta] MEDS 06/07/17 11:06 Active 1 mg PO BEDTIME PRN Furosemide [Lasix] MEDS 06/07/17 10:21 Discontinued 20 mg IVP ONCE STA Furosemide [Lasix] MEDS 06/08/17 06:30 Active 20 mg IVP QDAC Gabapentin [Neurontin] MEDS 06/07/17 15:00 Active 300 mg PO TID Ipratropium/Albuterol Neb [Duoneb] MEDS 06/07/17 09:13 Discontinued 1 vial NEB ONCE STA Ipratropium/Albuterol Neb [Duoneb] MEDS 06/07/17 14:00 Active 1 vial NEB RTQID Methylprednisolone Sod Succ/Pf [Solu-Medrol 125 mg] MEDS 06/07/17 09:15 Discontinued 125 mg IVP ONCE STA Methylprednisolone Sod Succ/Pf [Solu-Medrol 125 mg] MEDS 06/07/17 13:00 Active 125 mg IVP Q8HR Multivitamin [Multivitamin Tablet] MEDS 06/07/17 21:00 Active 1 tab PO BEDTIME Ondansetron HCl/Pf [Zofran 4 mg/2 ml] MEDS 06/07/17 10:51 Active 4 mg IVP Q6H PRN Oxycodone HCl [Oxycodone] MEDS 06/07/17 11:06 Ordered 5 mg PO DIRECTED PRN Pantoprazole Sodium [Protonix] MEDS 06/08/17 06:30 Active 40 mg PO QDAC Potassium Chloride [K-Dur] MEDS 06/08/17 09:00 Active 20 meq PO DAILY Tramadol HCl [Ultram] MEDS 06/07/17 11:06 Active 50 mg PO TID PRN Vancomycin HCl [Vancomycin] 1 gm MEDS 06/07/17 13:00 Active 0.9 % Sodium Chloride [Sodium Chloride] 250 ml IV ONCE RESUSCITATION STATUS Routine OTHERS 06/07/17 10:51 Ordered CHEST, 1V AP ONLY Stat RADS 06/07/17 09:13 Taken PT CONSULT Routine THERAPIES 06/07/17 Ordered Medications Generic Name Dose Route Start Last Admin Trade Name Freq PRN Reason Stop Dose Admin Acetaminophen 650 mg 06/07/17 10:51 Tylenol PO Q4H PRN Fever > 102 Albuterol/Ipratropium 1 vial 06/07/17 14:00 Duoneb NEB RTQID [facility] Carvedilol 12.5 mg 06/07/17 17:30 Coreg PO BIDWM [facility] Diazepam 5 mg 06/07/17 21:00 Valium PO BID [facility] Docusate Sodium 100 mg 06/07/17 11:06 Colace PO DAILY PRN Diarrhea Enoxaparin Sodium 40 mg 06/08/17 09:00 Lovenox SUBCUT DAILY [facility] Escitalopram Oxalate 10 mg 06/08/17 09:00 Lexapro PO DAILY [facility] Eszopiclone 1 mg 06/07/17 11:06 Lunesta PO BEDTIME PRN insomina Furosemide 20 mg 06/08/17 06:30 Lasix IVP QDAC [facility] Gabapentin 300 mg 06/07/17 15:00 Neurontin PO TID [facility] Ceftriaxone Sodium 1 gm/ 50 mls @ 75 mls/hr 06/07/17 11:00 06/07/17 11:57 Sodium Chloride IV 75 mls/hr DAILY BRETT Administration Vancomycin HCl 1 gm/ Sodium 250 mls @ 125 mls/hr 06/07/17 13:00 Chloride IV 06/07/17 14:59 ONCE ONE Vancomycin HCl 750 mg/ Sodium 250 mls @ 125 mls/hr 06/08/17 09:00 Chloride IV DAILY [facility] Methylprednisolone Sodium Succinate 125 mg 06/07/17 13:00 Solu-Medrol 125 Mg IVP Q8HR BRETT Multivitamins 1 tab 06/07/17 21:00 Multivitamin Tablet PO BEDTIME [facility] Ondansetron HCl 4 mg 06/07/17 10:51 Zofran 4 Mg/2 Ml IVP Q6H PRN Nausea / Vomiting Oxycodone HCl 5 mg 06/07/17 11:06 Oxycodone PO DIRECTED PRN severe pain Pantoprazole Sodium 40 mg 06/08/17 06:30 Protonix PO QDAC [facility] Potassium Chloride 20 meq 06/08/17 09:00 K-Dur PO DAILY [facility] Rivaroxaban 20 mg 06/07/17 17:00 Xarelto PO QPM [facility] Tramadol HCl 50 mg 06/07/17 11:06 Ultram PO TID PRN moderate pain Discontinued Medications Generic Name Dose Route Start Last Admin Trade Name Freq PRN Reason Stop Dose Admin Albuterol/Ipratropium 1 vial 06/07/17 09:13 06/07/17 09:45 Duoneb NEB 06/07/17 09:14 1 vial ONCE STA Administration Furosemide 20 mg 06/07/17 10:21 Lasix IVP 06/07/17 10:22 ONCE STA Methylprednisolone Sodium Succinate 125 mg 06/07/17 09:15 06/07/17 10:19 Solu-Medrol 125 Mg IVP 06/07/17 09:16 125 mg ONCE STA Administration Vital Signs: Temp Pulse Resp BP Pulse Ox 06/07/17 09:13 97.5 F L 102 H 22 92/67 97 Departure - Departure Time of Disposition: 12:30 Disposition: ADMITTED INPATIENT Discharge Problem: Pneumonia CHF (congestive heart failure) Qualifiers: Congestive heart failure type: systolic Congestive heart failure chronicity: acute Qualified Code(s): I50.21 - Acute systolic (congestive) heart failure Condition: Fair Pt referred to PMD for follow-up: No (Admitted) Allergies/Adverse Reactions: Allergies Pumpkin Adverse Reaction (Severe, Uncoded 04/08/17 13:23) Anaphylaxis Home Medications: Ambulatory Orders Gabapentin [Neurontin] 300 mg PO TID 05/11/14 Multivitamin [Multi Vitamin Daily] 1 each PO BEDTIME 05/11/14 Nitroglycerin [Nitrostat] 0.4 mg SL Q5MIN X 3 DOSES PRN 05/11/14 Potassium Chloride [K-Dur] 20 meq PO DAILY 05/11/14 Rivaroxaban [Xarelto] 20 mg PO QPM 05/11/14 Tramadol HCl 50 mg PO TID PRN 05/11/14 Butalbital/Aspirin/Caffeine [Gvncqmedbz-WIV-Alrlxsoe Cap] 1 each PO Q6H PRN 04/16 Furosemide [Lasix Tab] 20 mg PO QDAC 08/08/16 Ondansetron HCl [Zofran] 4 mg PO Q8H 08/08/16 Carvedilol [Coreg] 12.5 mg PO BID 04/08/17 Hyoscyamine Sulfate [Levsin] 0.125 mg PO TID PRN 04/08/17 Cefdinir [Omnicef] 300 mg PO DAILY 06/07/17 Diazepam [Valium] 5 mg PO BID 06/07/17 Docusate Sodium [Stool Softener] 100 mg PO DAILY PRN 06/07/17 Escitalopram Oxalate [Lexapro] 10 mg PO DAILY 06/07/17 Eszopiclone [Lunesta] 1 mg PO BEDTIME PRN 06/07/17 Oxycodone HCl [Oxycodone] 5 mg PO DIRECTED PRN 06/07/17 Pantoprazole Sodium [Protonix] 40 mg PO DAILY 06/07/17
[2017-06-07] MEDS ORDERED: LASIX IVP STA (10:21)
[2017-06-07] MEDS ORDERED: TYLENOL PO PRN (10:51)
[2017-06-07] MEDS ORDERED: ZOFRAN 4 MG/2 ML IVP PRN (10:51)
[2017-06-07] MEDS ORDERED: COLACE PO PRN (11:06)
[2017-06-07] MEDS ORDERED: OXYCODONE PO PRN (11:06)
[2017-06-07] MEDS ORDERED: LUNESTA PO PRN (11:06)
[2017-06-07] MEDS ORDERED: ROCEPHIN ONE (11:33)
[2017-06-07] MEDS: ROCEPHIN 1 GM in SODIUM CHLORIDE 50 ML IV SCH (11:57)
[2017-06-07] MEDS ORDERED: VANCOMYCIN 1 GM in SODIUM CHLORIDE 250 ML IV ONE (13:00)
[2017-06-07] MEDS: SOLU-MEDROL 125 MG IVP SCH ×2 (13:15→20:23)
[2017-06-07] MEDS: DUONEB NEB SCH ×2 (14:33→20:03)
--- NOTE | 2017-06-07 14:40 | DI ---
EXAM: Chest one view HISTORY: Shortness of breath and cough COMPARISON: 04/08/2017 TECHNIQUE: Single view of the chest was performed FINDINGS: Left-sided cardiac pacer. Heart is enlarged and unchanged. Mediastinal contour unchanged . Pulmonary vascular congestion. Small bilateral pleural effusions. Bibasilar atelectasis and/or c onsolidation. No visible pneumothorax. IMPRESSION: Cardiomegaly with pulmonary vascular congestion. Small bilateral pleural effusions with adjacent atelectasis and/or consolidation that could represent pneumonia and/or dependent edema. Report faxed
[2017-06-07 15:27] VITALS: BMI 26.6
[2017-06-07] MEDS: NEURONTIN PO SCH ×2 (16:21→20:24)
[2017-06-07] MEDS ORDERED: NON-FORMULARY MEDICATION (Rivaroxaban [Xarelto] 20 MG) PO SCH (17:00)
[2017-06-07] MEDS: COREG PO SCH (17:56)
[2017-06-07] MEDS: XARELTO PO SCH (18:19)
[2017-06-07] MEDS: MULTIVITAMIN TABLET PO SCH (20:24)
[2017-06-07] MEDS: VALIUM PO SCH (20:51)
[2017-06-07] MEDS ORDERED: COREG PO SCH (21:00)
[2017-06-08] MEDS: DUONEB NEB SCH ×4 (06:02→19:51)
[2017-06-08] MEDS: SOLU-MEDROL 125 MG IVP SCH ×3 (06:17→20:52)
[2017-06-08] MEDS: PROTONIX PO SCH (06:17)
[2017-06-08] MEDS ORDERED: K-DUR PO SCH (09:00)
[2017-06-08] MEDS: NEURONTIN PO SCH ×3 (09:49→20:06)
[2017-06-08] MEDS: ROCEPHIN 1 GM in SODIUM CHLORIDE 50 ML IV SCH (09:49)
[2017-06-08] MEDS: VALIUM PO SCH ×2 (09:50→20:06)
[2017-06-08] MEDS: COREG PO SCH ×2 (09:50→16:44)
[2017-06-08] MEDS: LASIX IVP SCH (09:50)
[2017-06-08] MEDS: LEXAPRO PO SCH (09:50)
[2017-06-08] MEDS: LOVENOX SUBCUT SCH (09:51)
[2017-06-08] MEDS: VANCOMYCIN 750 MG in SODIUM CHLORIDE 250 ML IV SCH (10:55)
[2017-06-08] MEDS: ULTRAM PO PRN (13:10)
[2017-06-08] MEDS: K-DUR PO SCH ×3 (14:46→20:11)
[2017-06-08] MEDS: OXYCODONE PO PRN (16:40)
[2017-06-08] MEDS: XARELTO PO SCH (16:40)
[2017-06-08] MEDS: MULTIVITAMIN TABLET PO SCH (20:06)
[2017-06-09] MEDS: DUONEB NEB SCH ×4 (04:44→23:08)
[2017-06-09] MEDS: PROTONIX PO SCH (06:12)
[2017-06-09] MEDS: SOLU-MEDROL 125 MG IVP SCH ×3 (06:12→20:52)
[2017-06-09] MEDS: LASIX IVP SCH (06:12)
[2017-06-09] MEDS ORDERED: TORADOL IM STA (09:04)
[2017-06-09] MEDS: K-DUR PO SCH ×4 (09:23→20:49)
[2017-06-09] MEDS: LEXAPRO PO SCH (09:23)
[2017-06-09] MEDS: COREG PO SCH ×2 (09:23→18:08)
[2017-06-09] MEDS: ROCEPHIN 1 GM in SODIUM CHLORIDE 50 ML IV SCH (09:23)
[2017-06-09] MEDS: LOVENOX SUBCUT SCH (09:23)
[2017-06-09] MEDS: VALIUM PO SCH ×2 (09:24→20:48)
[2017-06-09] MEDS: NEURONTIN PO SCH ×3 (09:24→20:48)
[2017-06-09] MEDS: VANCOMYCIN 750 MG in SODIUM CHLORIDE 250 ML IV SCH (10:43)
--- NOTE | 2017-06-09 11:03 | DI ---
EXAM: Single view of the chest. History: Pneumonia, follow-up Comparison: Chest radiograph 06/07/2017 Findings: Heart remains enlarged. No significant interval change in the bibasilar infiltrates and s mall bilateral pleural effusions. No pneumothorax. The visualized osseous structures unchanged. Pa cer device. Impression: Cardiomegaly with no significant interval change in the bibasilar infiltrates and small bilateral pleural effusions.
--- NOTE | 2017-06-09 13:54 | HP ---
DATE OF SERVICE: 06/07/17 HISTORY OF PRESENT ILLNESS: 87-year-old white female hospitalized with pneumonitis and possibility of CHF. The patient has end-stage CHF with poor ejection fraction and also has viral syndrome type of picture. The patient's sales team member, a daughter, is going through chemotherapy and has been unable to take care of her. The , who is at home with the patient, is also frail. The patient has shortness of breath on minimal exertion, weakness and hypotension at home with blood pressure of 60 to 70 systolic. PAST MEDICAL/SURGICAL HISTORY: End-stage coronary artery disease End-stage congestive heart failure Pacemaker Atrial fibrillation Neuropathy Generalized osteoarthritis Depression Insomnia Reflux disease REVIEW OF SYSTEMS: CONSTITUTIONAL: Positive for weakness and fatigue. No night sweats. No fever or chills. HEENT: Eyes: No visual changes. No eye pain. No eye discharge. ENT: No runny nose. No epistaxis. No sinus pain. No sore throat. No odynophagia. No ear pain. No congestion. RESPIRATORY: Mild cough with congestion. No hemoptysis. Shortness of breath. CARDIOVASCULAR: Positive for shortness of breath on minimal exertion. No angina symptoms. No CHF symptoms. No chest tightness. No atypical chest pain for CAD. No palpitations. No orthopnea. GASTROINTESTINAL: Poor appetite. No abdominal pain. Mild nausea; no vomiting. No diarrhea or constipation. No hematemesis. No hematochezia. GENITOURINARY: No urgency. No frequency. No dysuria. No hematuria. No obstructive symptoms. No discharge. No pain. No significant abnormal bleeding. MUSCULOSKELETAL: Weakness of muscles and overall joint aching. NEUROLOGICAL: No headache. No neck pain. No syncope. No seizures. No dizziness. PSYCHIATRIC: Not anxious. No depression. No suicidal thoughts. No homicidal thoughts. SKIN: No rash. No lesions. No wounds. ENDOCRINE: No unexplained weight loss. No weight gain. HEMATOLOGIC/LYMPHATIC: No anemia. No purpura. No petechiae. No prolonged or excessive bleeding. No palpable lymph nodes. PERSONAL/FAMILY/SOCIAL HISTORY: The patient is , lives with the , both of whom are practically disabled with multiple medical problems. The daughter, who takes care of the patient and her is sick with cancer of the breast and is on chemotherapy. The patient is nonsmoker. No alcohol abuse. She has been sick with CHF for a number of years. She also has pacemaker. She has not been able to do most activity of daily living. MEDICATIONS: Neurontin 300 mg t.i.d. Nitroglycerin p.r.n. K-Dur 20 mEq daily Xarelto 20 mg p.o. daily Tramadol 50 mg t.i.d. Lasix 20 mg p.o. daily Zofran 4 mg as needed Coreg 12.5 mg daily Levsin 0.125 t.i.d. Omnicef 300 mg p.o. daily Valium 5 mg p.o. twice a day Stool softner 100 p.o. daily Lexapro 10 mg daily Lunesta 1 mg at bedtime Oxycodone 5 mg p.o. t.i.d. Protonix 40 mg daily ALLERGIES: PUMPKIN PHYSICAL EXAMINATION: GENERAL: The patient seems to be oriented to time, place and person. Looks pale. VITAL SIGNS: Temperature 97.9, pulse 94, respiratory rate 24, BP 145/71, pulse ox 94%. HEENT: Face symmetrical. Head normocephalic, atraumatic. Eyes: Extraocular muscles are intact. Pupils are equal, round and reactive to light and accommodation. Ears: No lesions. Nose appeared normal. Throat: No exudate or erythema. NECK: Supple. No JVD, no carotid bruit. No lymphadenopathy or thyromegaly. LUNGS: Decreased breath sounds with few crepitations. Percussion note normal. Chest symmetrical. HEART: S1, S2, no S3. Grade I/ systolic murmur. No cyanosis or clubbing. No ascites. Pulses: Dorsalis pedis and posterior tibial pulses +1 to +2 both sides. ABDOMEN: Soft. No ascites. Nontender. Bowel sounds active. No CVA tenderness. No mass felt. EXTREMITIES: Trace pitting edema. Full range of motion of all extremities, equal. NEUROLOGIC: No focal deficit. Cranial nerves II through XII are grossly intact. No headache, no double vision or headache. SKIN: Warm, dry, no rash. Intact. Turgor - normal. LYMPHATIC: No palpable lymph nodes/no lymphedema. MUSCULOSKELETAL: Normal joints with no swelling. Muscle tone is normal. LABS: Hemoglobin 12.5, hematocrit 37, WBC 11,500, normal differential. Creatinine 1, BUN 23, potassium 3. ASSESSMENT: 1. ACUTE PNEUMONITIS WITH MILD BRONCHITIS 2. CHF 3. PLEURAL EFFUSION 4. HISTORY OF CORONARY ARTERY DISEASE 5. PACEMAKER 6. ATRIAL FIBRILLATION 7. HYPOKALEMIA 8. GENERALIZED OSTEOARTHRITIS 9. INSOMNIA 10. DEPRESSION PLAN: 1. Continue all the medications as before. 2. Add Rocephin and Vancomycin along with steroids, nebs treatment. 3. The patient is DNR. Of note: The patinet was at [facility] for several days and was discharged with CHF and chronic lung disease. CONDITION: Stable PROGNOSIS: Poor TIME SPENT: More than 70 minutes. MTDD
[2017-06-09] MEDS: XARELTO PO SCH (16:20)
[2017-06-09] MEDS: MULTIVITAMIN TABLET PO SCH (20:48)
[2017-06-10] MEDS: OXYCODONE PO PRN ×2 (00:44→16:21)
[2017-06-10] MEDS: TORADOL IVP PRN ×2 (01:22→20:32)
[2017-06-10] MEDS: DUONEB NEB SCH ×4 (04:37→21:22)
[2017-06-10] MEDS: LASIX IVP SCH (05:40)
[2017-06-10] MEDS: SOLU-MEDROL 125 MG IVP SCH ×3 (05:40→20:31)
[2017-06-10] MEDS: PROTONIX PO SCH (05:58)
--- NOTE | 2017-06-10 08:50 | PCM.PROG ---
Attending Provider: ATTENDING PROVIDER: Dr. RONNY PAGE This patient is seen with Jazmine Armstrong, Nurse Practitioner. DATE OF SERVICE: 06/10/17 SUBJECTIVE: This 87 year old WHITE/ F was hospitalized 06/07/17. The patient is sitting in bed, alert. She states she is waking up in middle of night with panic attacks, which was an issue on previous hospitalizations as well. Labs pending for today. REVIEW OF SYSTEMS: CONSTITUTIONAL: Positive for weakness and fatigue. No night sweats. No fever or chills. HEENT: Eyes: No visual changes. No eye pain. No eye discharge. ENT: No runny nose. No epistaxis. No sinus pain. No odynophagia. No congestion. RESPIRATORY: Shortness of breath. No cough, no congestion. No hemoptysis. CARDIOVASCULAR: No angina symptoms. No CHF symptoms. No atypical chest pain for CAD. No palpitations. No orthopnea. GASTROINTESTINAL: No abdominal pain. No nausea or vomiting. No diarrhea or constipation. No hematemesis. No hematochezia. GENITOURINARY: No urgency. No frequency. No dysuria. No hematuria. No obstructive symptoms. No discharge. No pain. No significant abnormal bleeding. MUSCULOSKELETAL: Leg edema. No musculoskeletal pain; no joint swelling. NEUROLOGICAL: Awake, alert, oriented to time, place and person. No headache. No neck pain. No syncope. No seizures. No dizziness. PSYCHIATRIC: Anxious. No depression. No suicidal thoughts. No homicidal thoughts. SKIN: No rash. No lesions. No wounds. ENDOCRINE: No unexplained weight loss. No weight gain. HEMATOLOGIC/LYMPHATIC: No anemia. No purpura. No petechiae. No prolonged or excessive bleeding. No palpable lymph nodes. PHYSICAL EXAMINATION: GENERAL: The patient is awake, alert and oriented, lying in bed in no distress. VITAL SIGNS: Temperature 97.3 F, Pulse 92, Respiratory Rate 18, BP 94/68, Pulse Ox 99% HEENT: Head normocephalic, atraumatic. Eyes: Extraocular muscles are intact. Pupils are equal, round and reactive to light and accommodation. Ears: No lesions. Nose appeared normal. Throat: No exudate or erythema. NECK: Supple. No JVD, no carotid bruit. No lymphadenopathy or thyromegaly. LUNGS: Diminished breath sounds bilaterally. Clear to auscultation. Percussion note normal. Chest symmetrical. HEART: Irregular heart rate. S1, S2, no S3. No murmurs. No cyanosis or clubbing. No ascites. Pulses: Dorsalis pedis and posterior tibial pulses +1 to +2 both sides. ABDOMEN: Soft. Non-tender. Bowel sounds active. No CVA tenderness. No mass felt. EXTREMITIES: +1 pitting edema bilaterally. Full range of motion of all extremities, equal. NEUROLOGIC: No focal deficit. Cranial nerves II through XII are grossly intact. No headache, no double vision or headache. SKIN: Not dry. Intact. Turgor-normal. LYMPHATIC: No palpable lymph nodes/no lymphedema. MUSCULOSKELETAL: Normal joints with no swelling. Muscle tone is normal. LAB REVIEW: 06/09/17 09:40 06/09/17 09:40 06/09/17 09:40: Sodium 142, Potassium 4.9, Chloride 109 H, Carbon Dioxide 27, Anion Gap 10.9, BUN 33 H, Creatinine 1.56 H, Estimated GFR (MDRD) 32.00, BUN/ Creatinine Ratio 21.15, Glucose 189 H, Calcium 9.2, Total Bilirubin 1.0, AST 34 , ALT 33, Alkaline Phosphatase 129 D, Total Protein 6.2, Albumin 2.4 L, Globulin 3.8, Albumin/Globulin Ratio 0.63 06/09/17 09:40: WBC 16.39 H, RBC 4.26, Hgb 13.5, Hct 39.6, MCV 93.0, MCH 31.7 H , MCHC 34.1, RDW Coeff of Estuardo 17.2 H, Plt Count 136 L D, Immature Gran % (Auto) 0.7, Neut % (Auto) 91.8, Lymph % (Auto) 3.6 L, [place] % (Auto) 3.8, Eos % (Auto) 0.0, Baso % (Auto) 0.1, Immature Gran # (Auto) 0.1, Neut # 15.0 H, Lymph # 0.6, [place] # 0.6, Eos # 0.0, Baso # 0.0 ASSESSMENT: 1. Acute CHF 2. Atrial fibrillation 3. Pneumonia 4. Leg edema 5. Hypotension 6. Chronic kidney disease 7. Anxiety PLAN: 1. CBC, CMP today 2. Elevate foot of bed Plan and coordination of the patient's care discussed in the presence of Paratransit Driver and nurse. CONDITION: Stable SCRIBED BY: MARY BROWNING Barrel Bridge Assembler scribed while in presence of service performed by Dr. Page/Jazmine Armstrong APRN on 06/10/17 ([id number])
[2017-06-10] MEDS: ROCEPHIN 1 GM in SODIUM CHLORIDE 50 ML IV SCH (08:58)
[2017-06-10] MEDS: NEURONTIN PO SCH ×3 (09:04→20:32)
[2017-06-10] MEDS: VALIUM PO SCH ×2 (09:05→20:32)
[2017-06-10] MEDS: LOVENOX SUBCUT SCH (09:05)
[2017-06-10] MEDS: K-DUR PO SCH (09:05)
[2017-06-10] MEDS: LEXAPRO PO SCH (09:05)
[2017-06-10] MEDS: COREG PO SCH ×3 (09:09→18:07)
[2017-06-10] MEDS: VANCOMYCIN 750 MG in SODIUM CHLORIDE 250 ML IV SCH (10:16)
[2017-06-10] MEDS ORDERED: SODIUM BICARBONATE 7.5% IVP STA ×2 (10:46→15:17)
[2017-06-10] MEDS ORDERED: HUMULIN R SUBCUT STA (10:48)
[2017-06-10] MEDS ORDERED: DEXTROSE 50%-WATER ABBOJECT IVP STA (10:51)
--- NOTE | 2017-06-10 12:04 | RS.OTINEVL ---
Subjective - Patient information Date of Evaluation: 06/10/17 Usual Living Arrangement: With Spouse Living Arrangement Comments: Pt has a spouse and family living with her to help take care of her. Pt has a hospital bed at home. Pt has a hospital bed at home. Pt is moderate assistance to stand x 2. Medical History: Hypertension, COPD Medical History Comments:: irregular heart beat, CHF, Pacemaker, hypercholesterolemia, Edema, Respiratory disorder, DDD, DJD, sleep apnea, Surgical History: Hysterectomy Surgical History Comments:: appendectomy, gall bladder removed, disc removed. - Level of function Prior to this admission, the patient could do the following:: Partially Dependent Ambulation Abilities prior to this admission: Pt was at home with family and they helped take care of her. Pt lives with her . Current Level of Function: Partially Dependent Current Equipment Used at Home: Rolling walker, hospital bed. Pain Assessment - Pain Pain Score: 0 Interventions - Objective Patient Orientation: Person, Place, Situation Current Interventions: IV's Observation: Pt is very weak. Pt is moderate assistance of 2 to complete sit to stand. Pt is maximum assistance with bed mobility. Pt is maximum assistance to take off her gown. Interventions - ROM Right Upper Extremity AROM: Slight limitation Left Upper Extremity AROM: Slight limitation - Strength Right Upper Extremity Strength: Mild Weakness Left Upper Extremity Strength: Mild Weakness - Sensation Right Upper Extremity Sensation: Intact/Normal Left Upper Extremity Sensation: Intact/Normal Balance - Sitting Balance Static Sitting Balance: Poor Dynamic Sitting Balance: Poor - Standing Balance Static Standing Balance: Poor Dynamic Standing Balance: Poor ADL Skills - Self Feeding Self Feeding: Supervision - Grooming Grooming: Max Assist - Bathing Bathing UE: Max Assist, 1 person assist Bathing LE: Max Assist, 1 person assist - Dressing Dressing UE: Max Assist, 2 person assist Dressing LE: Max Assist, 2 person assist - Toilet Management Toileting Management: Max Assist, 2 person assist Functional Mobility - Bed Mobility Rolling R/L: Mod Assist Scooting: Max Assist Supine to Sit: Max Assist, 2 person assist Sit to Supine: Max Assist, 2 person assist - Transfers Sit to Stand: Mod Assist, 2 person assist Stand to Sit: Mod Assist, 2 person assist Stand Pivot Transfers: Not Tested Additional Treatment Performed - Time with patient Total treatment time: 20 Activities Patient Interests:: Visiting/Socializing Patient Education Patient Education: Education of diagnosis, Home Exercise Program, Education of Plan of Care Teaching Recipient: Patient, Family Teaching Methods: Discussion Assessment Problem List:: Decreased level of function, Requires training/education, Decreased safety/Risk of falls, Weakness Rehab Potential: Good Further Therapy Indicated?: Yes Short Term Goals - Goals GOAL 1: To sit EOB Minimal assistance. Goal to be met by: 06/13/17 GOAL 2: To tolerate stand pivot transfer to Minimal assistance. Goal to be met by: 06/13/17 GOAL 3: To increase BUE strength to 4/5. Goal to be met by: 06/13/17 Wax Bleacher Goals GOAL 1: To sit EOB CGA. Goal to be met by: 06/18/17 GOAL 2: To tolerate stand pivot transfer to CGA. Goal to be met by: 06/18/17 GOAL 3: To increase BUE strength to 4+/5. Goal to be met by: 06/18/17 Plan Plan of Care: Therapeutic EX, Neuromuscular Re-Educ, Therapeutic Activity, Self- Care/Home Management Frequency of Treatment: 1-2 X day, as tolerated Duration of Treatment: 2 Weeks Anticipated Discharge Destination: Home Has the Physician been added for Co-signature?: Yes
--- NOTE | 2017-06-10 13:05 | PN ---
DATE OF SERVICE: 06/08/17 SUBJECTIVE: 87 year old white female hospitalized with pneumonitis, pleural effusion with mild CHF. The patient's condition seems to have improved and she said that she is feeling better and breathing better. REVIEW OF SYSTEMS: CONSTITUTIONAL: No night sweats. No fatigue, malaise, lethargy. No fever or chills. Weakness. HEENT: Eyes: No visual changes. No eye pain. No eye discharge. ENT: No runny nose. No epistaxis. No sinus pain. No sore throat. No odynophagia. No congestion. RESPIRATORY: Mild cough, Congestion. No hemoptysis. No shortness of breath. CARDIOVASCULAR: No angina symptoms. No CHF symptoms. No atypical chest pain for CAD. No palpitations. No orthopnea. GASTROINTESTINAL: No abdominal pain. No nausea or vomiting. No diarrhea or constipation. No hematemesis. No hematochezia. GENITOURINARY: No urgency. No frequency. No dysuria. No hematuria. No obstructive symptoms. No discharge. No pain. No significant abnormal bleeding. MUSCULOSKELETAL: No musculoskeletal pain; no joint swelling. NEUROLOGICAL: No headache. No neck pain. No syncope. No seizures. No dizziness. PSYCHIATRIC: Not anxious. No depression. No suicidal thoughts. No homicidal thoughts. SKIN: No rash. No lesions. No wounds. ENDOCRINE: No unexplained weight loss. No weight gain. HEMATOLOGIC/LYMPHATIC: No anemia. No purpura. No petechiae. No prolonged or excessive bleeding. No palpable lymph nodes. PHYSICAL EXAMINATION: GENERAL: The patient is oriented to time, place and person. HEENT: Head normocephalic, atraumatic. Eyes: Extraocular muscles are intact. Pupils are equal, round and reactive to light and accommodation. Ears: No lesions. Nose appeared normal. Throat: No exudate or erythema. NECK: Supple. No JVD, no carotid bruit. No lymphadenopathy or thyromegaly. LUNGS: Decreased breath sounds but clear to auscultation. Percussion note normal. Chest symmetrical. HEART: S1, S2, no S3. No murmurs. No cyanosis or clubbing. No ascites. Pulses: Dorsalis pedis and posterior tibial pulses +1 to +2 both sides. ABDOMEN: Soft. Nontender. Bowel sounds active. No CVA tenderness. No mass felt. EXTREMITIES: No edema. Full range of motion of all extremities, equal. NEUROLOGIC: No focal deficit. Cranial nerves II through XII are grossly intact. No headache, no double vision or headache. SKIN: Not dry. Intact. Turgor - normal. LYMPHATIC: No palpable lymph nodes/no lymphedema. MUSCULOSKELETAL: Normal joints with no swelling. Muscle tone is normal. LABS: Labs show hypokalemia ASSESSMENT: 1. ACUTE PNEUMONITIS WITH MILD BRONCHITIS 2. CHF 3. PLEURAL EFFUSION 4. HISTORY OF CORONARY ARTERY DISEASE 5. PACEMAKER 6. ATRIAL FIBRILLATION 7. HYPOKALEMIA 8. GENERALIZED OSTEOARTHRITIS 9. INSOMNIA 10. DEPRESSION PLAN: 1. Continue antibiotics Vancomycin and Rocephin along with steroids. 2. Extra Lasix to be given 3. K-tab 20meq four times a day supplements for hypokalemia The patient's daughter is in the room. CONDITION: stable. TIME SPENT: More than 30 minutes. Plan and coordination of the patient's care discussed in the presence of nurse. CRISTINA
--- NOTE | 2017-06-10 13:54 | PN ---
DATE OF SERVICE: 06/07/17 SUBJECTIVE: The patient was hospitalized today 06/07/17 with complaint of being short of breath with mild cough and congestion. The patient looked pale and somewhat frail. The patient was recently hospitalized to [facility]. The patient says that her condition has not improved since then. The patient in the emergency room had chest x-ray that showed possibility of CHF and effusion with pneumonitis. The patient will be started on antibiotic steroids, careful IV hydration would be don for chronic kidney disease with possibility of azotemia. The patient has several endstage medical condition like chronic lung disease, congestive heart failure and has pacemaker. The patient's condition is critical. The patient is DNR. The patient to be hospitalized and followed. The patient was again seen in room 102. TIME SPENT: More than 30 minutes. Plan and coordination of the patient's care discussed in the presence of nurse. CRISTINA
[2017-06-10] MEDS ORDERED: KAYEXALATE SUSP PO STA (15:19)
[2017-06-10] MEDS: XANAX PO PRN (16:21)
[2017-06-10] MEDS: XARELTO PO SCH (17:55)
[2017-06-10] MEDS: MULTIVITAMIN TABLET PO SCH (20:32)
[2017-06-11] MEDS: DUONEB NEB SCH ×4 (04:36→21:20)
[2017-06-11] MEDS: SOLU-MEDROL 125 MG IVP SCH ×2 (06:00→17:33)
[2017-06-11] MEDS: LASIX IVP SCH (06:00)
[2017-06-11] MEDS: PROTONIX PO SCH (06:00)
[2017-06-11] MEDS ORDERED: KAYEXALATE SUSP PO STA (08:03)
[2017-06-11] MEDS ORDERED: HUMULIN R IV STA (08:06)
[2017-06-11] MEDS ORDERED: DEXTROSE 50%-WATER ABBOJECT IVP STA (08:07)
[2017-06-11] MEDS: LOVENOX SUBCUT SCH (08:41)
[2017-06-11] MEDS: LEXAPRO PO SCH (08:42)
[2017-06-11] MEDS: NEURONTIN PO SCH ×3 (08:42→20:41)
[2017-06-11] MEDS: COREG PO SCH ×2 (08:42→17:34)
[2017-06-11] MEDS: VALIUM PO SCH ×2 (08:42→20:42)
[2017-06-11] MEDS: ROCEPHIN 1 GM in SODIUM CHLORIDE 50 ML IV SCH (08:48)
--- NOTE | 2017-06-11 09:15 | PCM.PROG ---
Attending Provider: ATTENDING PROVIDER: Dr. RONNY PAGE DATE OF SERVICE: 06/11/17 SUBJECTIVE: This 87 year old WHITE/ F was hospitalized 06/07/17. The patient is hospitalized with CHF/pneumonia. The patient has end-stage CHF and CAD. She seems to be more alert and talkative. Swelling is less. Hyperkalemia is a little better than yesterday. REVIEW OF SYSTEMS: CONSTITUTIONAL: Fatigue and tired feeling is improving some. No night sweats. No fever or chills. HEENT: Eyes: No visual changes. No eye pain. No eye discharge. ENT: No runny nose. No epistaxis. No sinus pain. No odynophagia. No congestion. RESPIRATORY: No cough, no congestion. No hemoptysis. No shortness of breath. CARDIOVASCULAR: No angina symptoms. No CHF symptoms. No atypical chest pain for CAD. No palpitations. No orthopnea.. GASTROINTESTINAL: Appetite improving. No abdominal pain. No nausea or vomiting. No diarrhea or constipation. No hematemesis. No hematochezia. GENITOURINARY: No urgency. No frequency. No dysuria. No hematuria. No obstructive symptoms. No discharge. No pain. No significant abnormal bleeding. MUSCULOSKELETAL: No musculoskeletal pain; no joint swelling. NEUROLOGICAL: Awake, alert, oriented to time, place and person. No headache. No neck pain. No syncope. No seizures. No dizziness. PSYCHIATRIC: Not anxious. No depression. No suicidal thoughts. No homicidal thoughts. SKIN: No rash. No lesions. No wounds. ENDOCRINE: No unexplained weight loss. No weight gain. HEMATOLOGIC/LYMPHATIC: No anemia. No purpura. No petechiae. No prolonged or excessive bleeding. No palpable lymph nodes. PHYSICAL EXAMINATION: GENERAL: The patient is awake, alert and oriented, lying in bed in no distress. VITAL SIGNS: Temperature 96.6 F, Pulse 120, Respiratory Rate 23, BP 88/60, Pulse Ox 96% HEENT: Head normocephalic, atraumatic. Eyes: Extraocular muscles are intact. Pupils are equal, round and reactive to light and accommodation. Ears: No lesions. Nose appeared normal. Throat: No exudate or erythema. NECK: Supple. No JVD, no carotid bruit. No lymphadenopathy or thyromegaly. LUNGS: Clear to auscultation. Percussion note normal. Chest symmetrical. HEART: S1, S2, no S3. No murmurs. No cyanosis or clubbing. No ascites. Pulses: Dorsalis pedis and posterior tibial pulses +1 to +2 both sides. ABDOMEN: Soft. Non-tender. Bowel sounds active. No CVA tenderness. No mass felt. EXTREMITIES: Edema of upper and lower extremities - could be from hypoproteinemia and inactivity. Full range of motion of all extremities, equal. NEUROLOGIC: No focal deficit. Cranial nerves II through XII are grossly intact. No headache, no double vision or headache. SKIN: Not dry. Intact. Turgor-normal. LYMPHATIC: No palpable lymph nodes/no lymphedema. MUSCULOSKELETAL: Normal joints with no swelling. Muscle tone is normal. LAB REVIEW: 06/11/17 07:08 06/10/17 13:50 06/11/17 07:08: WBC 12.19 H, RBC 4.56, Hgb 14.3, Hct 43.2, MCV 94.7, MCH 31.4 H , MCHC 33.1, RDW Coeff of Estuardo 17.1 H, Plt Count 172 D, Immature Gran % (Auto) 0.6, Neut % (Auto) 87.4, Lymph % (Auto) 7.5 L, Brooke % (Auto) 4.4, Eos % (Auto) 0.0, Baso % (Auto) 0.1, Immature Gran # (Auto) 0.1, Neut # 10.7 H, Lymph # 0.9, Brooke # 0.5, Eos # 0.0, Baso # 0.0 06/10/17 13:50: Sodium 142, Potassium 6.3 H*, Chloride 107, Carbon Dioxide 29, Anion Gap 12.3, BUN 43 H, Creatinine 2.04 H, Estimated GFR (MDRD) 23.00, BUN/ Creatinine Ratio 21.07, Glucose 192 H D, Calcium 9.2 06/10/17 09:30: Sodium 141, Potassium 6.8 H*, Chloride 109 H, Carbon Dioxide 22 L, Anion Gap 16.8, BUN 41 H, Creatinine 1.98 H, Estimated GFR (MDRD) 24.00, BUN/ Creatinine Ratio 20.70, Glucose 141 H, Calcium 9.6, Total Bilirubin 1.0, AST 157 H D, ALT 102 H D, Alkaline Phosphatase 170 H D, Total Protein 7.1, Albumin 2.6 L, Globulin 4.5, Albumin/Globulin Ratio 0.58 06/10/17 09:30: WBC 13.84 H, RBC 4.70, Hgb 14.7, Hct 43.2, MCV 91.9, MCH 31.3 H , MCHC 34.0, RDW Coeff of Estuardo 16.8 H, Plt Count 56 L D, Immature Gran % (Auto) 0.6, Neut % (Auto) 89.5, Lymph % (Auto) 5.6 L, Brooke % (Auto) 3.8, Eos % (Auto) 0.1, Baso % (Auto) 0.4, Immature Gran # (Auto) 0.1, Neut # 12.4 H, Lymph # 0.8, Brooke # 0.5, Eos # 0.0, Baso # 0.1, Anisocytosis Not present ASSESSMENT: 1. CHF/pneumonia being treated with antibiotics and steroids 2. Hyperkalemia treated with Kayexylate, insulin, glucose and IV Lasix PLAN: 1. Solu-Medrol 100 mg twice a day 2. D/C Vancomycin 3. Five units of regular insulin 4. Kayexylate 25 gm Plan and coordination of the patient's care discussed in the presence of Certified Nuclear Medicine Technologist and nurse. CONDITION: Stable PROGNOSIS: Poor SCRIBED BY: MARY BROWNING Field Service Consultant scribed while in presence of service performed by Dr. RONNY PAGE on 06/11/17 ([id number])
--- NOTE | 2017-06-11 11:12 | PN ---
DATE OF SERVICE: 06/10/17 SUBJECTIVE: The patient was seen today with Nurse Practitioner. The patient is doing well. Cardiovascular status is stable. Her hydration status has improved. She has some panic attacks and I will put her on Xanax 0.25 mg prn. She will continue Valium. Valium and Xanax are the same thing, but we will see how she does with small dose of Xanax. CONDITION: Stable. MTDD
--- NOTE | 2017-06-11 11:20 | PN ---
DATE OF SERVICE: 06/09/17 SUBJECTIVE: 87 year old white female hospitalized with CHF, Pneumonia. The patient's condition has improved. She has her and her daughter in the room. She says that she is feeling a little bit better. REVIEW OF SYSTEMS: CONSTITUTIONAL: No night sweats. Weakness. No fever or chills. Appetite seems to be improving. HEENT: Eyes: No visual changes. No eye pain. No eye discharge. ENT: No runny nose. No epistaxis. No sinus pain. No sore throat. No odynophagia. No congestion. RESPIRATORY: No cough, no congestion. No hemoptysis. Shortness of breath still persists. CARDIOVASCULAR: No angina symptoms. No CHF symptoms. No atypical chest pain for CAD. No palpitations. No orthopnea. GASTROINTESTINAL: No abdominal pain. No nausea or vomiting. No diarrhea or constipation. No hematemesis. No hematochezia. GENITOURINARY: No urgency. No frequency. No dysuria. No hematuria. No obstructive symptoms. No discharge. No pain. No significant abnormal bleeding. MUSCULOSKELETAL: No musculoskeletal pain; no joint swelling. NEUROLOGICAL: No headache. No neck pain. No syncope. No seizures. No dizziness. PSYCHIATRIC: Not anxious. No depression. No suicidal thoughts. No homicidal thoughts. SKIN: No rash. No lesions. No wounds. ENDOCRINE: No unexplained weight loss. No weight gain. HEMATOLOGIC/LYMPHATIC: No anemia. No purpura. No petechiae. No prolonged or excessive bleeding. No palpable lymph nodes. PHYSICAL EXAMINATION: GENERAL: The patient is oriented to time, place and person. VITAL SIGNS: Temperature 97.5, pulse 100, respiratory rate 22, blood pressure systolic 100, oxygen saturation 95%. HEENT: Head normocephalic, atraumatic. Eyes: Extraocular muscles are intact. Pupils are equal, round and reactive to light and accommodation. Ears: No lesions. Nose appeared normal. Throat: No exudate or erythema. NECK: Supple. No JVD, no carotid bruit. No lymphadenopathy or thyromegaly. LUNGS: Decreased breath sounds. Percussion note normal. Chest symmetrical. HEART: S1, S2, no S3. No murmurs. No cyanosis or clubbing. No ascites. Pulses: Dorsalis pedis and posterior tibial pulses +1 to +2 both sides. ABDOMEN: Soft. Nontender. Bowel sounds active. No CVA tenderness. No mass felt. EXTREMITIES: No edema. Full range of motion of all extremities, equal. NEUROLOGIC: No focal deficit. Cranial nerves II through XII are grossly intact. No headache, no double vision or headache. SKIN: Not dry. Intact. Turgor - normal. LYMPHATIC: No palpable lymph nodes/no lymphedema. MUSCULOSKELETAL: Normal joints with no swelling. Muscle tone is normal. LABS: Hemoglobin 12.5, hematocrit 37.0, WBC 11,500 with normal differential. The patient's potassium was low and she was put on potassium supplements. ASSESSMENT: CONGESTIVE HEART FAILURE AND PNEUMONIA SEEMS TO BE UNDER CONTROL PLAN: 1. We will do a CBC, CMP daily. 2. The patient has a backache and we will give Toradol 30 IV now and every 8 hours. 3. Continue steroids, antibiotics, NEBS treatment. PROGNOSIS: Not good considering the patient's end stage cardiovascular disease. TIME SPENT: More than 30 minutes. Plan and coordination of the patient's care discussed in the presence of nurse. CRISTINA
--- NOTE | 2017-06-11 14:27 | DI ---
EXAM: Single view of the chest. History: Short of breath, follow up pneumonia Comparison: Chest radiograph 06/09/2017 Findings: Heart remains enlarged. The bilateral lung infiltrates are increasing. Persistent bilate ral pleural effusions. No pneumothorax. Pacer device again seen in place. No acute osseous abnorma lities. Impression: Cardiomegaly with worsening edema or pneumonia and persistent bilateral pleural effusion s.
[2017-06-11] MEDS ORDERED: LASIX IVP STA (14:46)
[2017-06-11] MEDS: XARELTO PO SCH (17:34)
[2017-06-11] MEDS: MULTIVITAMIN TABLET PO SCH (20:41)
[2017-06-12] MEDS: DUONEB NEB SCH ×4 (04:33→20:18)
[2017-06-12] MEDS: LASIX IVP SCH (05:45)
[2017-06-12] MEDS: PROTONIX PO SCH (05:46)
[2017-06-12] MEDS: LEXAPRO PO SCH (10:14)
[2017-06-12] MEDS: ROCEPHIN 1 GM in SODIUM CHLORIDE 50 ML IV SCH (10:15)
[2017-06-12] MEDS: LOVENOX SUBCUT SCH (10:15)
[2017-06-12] MEDS: VALIUM PO SCH ×2 (10:15→20:15)
[2017-06-12] MEDS: NEURONTIN PO SCH ×3 (10:15→20:16)
[2017-06-12] MEDS: COREG PO SCH ×2 (10:15→17:23)
[2017-06-12] MEDS: SOLU-MEDROL 125 MG IVP SCH ×2 (10:16→20:29)
[2017-06-12] MEDS: K-DUR PO SCH ×2 (11:17→17:23)
[2017-06-12] MEDS: TORADOL IVP PRN (14:04)
[2017-06-12] MEDS: XARELTO PO SCH (17:24)
[2017-06-12] MEDS: ULTRAM PO PRN (18:56)
[2017-06-12] MEDS: XANAX PO PRN (18:56)
[2017-06-12] MEDS: NYSTATIN ORAL SUSP PO SCH (20:15)
[2017-06-12] MEDS: MULTIVITAMIN TABLET PO SCH (20:17)
[2017-06-13] MEDS: DUONEB NEB SCH ×2 (04:20→10:14)
[2017-06-13] MEDS: LASIX IVP SCH (05:34)
[2017-06-13] MEDS: PROTONIX PO SCH (05:35)
[2017-06-13] MEDS: NYSTATIN ORAL SUSP PO SCH ×2 (05:35→10:58)
[2017-06-13] MEDS: LOVENOX SUBCUT SCH (09:09)
[2017-06-13] MEDS: K-DUR PO SCH (09:10)
[2017-06-13] MEDS: LEXAPRO PO SCH (09:10)
[2017-06-13] MEDS: NEURONTIN PO SCH (09:10)
[2017-06-13] MEDS: SOLU-MEDROL 125 MG IVP SCH (09:10)
[2017-06-13] MEDS: VALIUM PO SCH (09:10)
[2017-06-13] MEDS: COREG PO SCH (09:10)
[2017-06-13] MEDS: ROCEPHIN 1 GM in SODIUM CHLORIDE 50 ML IV SCH (09:10)
[2017-06-13] MEDS ORDERED: K-DUR PO SCH (09:31)
--- NOTE | 2017-06-13 09:36 | PN ---
DATE OF SERVICE: 06/12/17 SUBJECTIVE: 87 year old white female hospitalized with CHF and pneumonia. The patient is treated with steroids, antibiotics, NEBS treatment. The patient's chest x-ray showed CHF and possible pneumonitis. The patient was given IV Lasix and will give another IV Lasix dose 40mg. REVIEW OF SYSTEMS: CONSTITUTIONAL: No night sweats. No fatigue, malaise, lethargy. No fever or chills. Feels better. HEENT: Eyes: No visual changes. No eye pain. No eye discharge. ENT: No runny nose. No epistaxis. No sinus pain. No sore throat. No odynophagia. No congestion. RESPIRATORY: No cough, no congestion. No hemoptysis. No shortness of breath. CARDIOVASCULAR: No angina symptoms. No CHF symptoms. No atypical chest pain for CAD. No palpitations. No orthopnea. GASTROINTESTINAL: No abdominal pain. No nausea or vomiting. No diarrhea or constipation. No hematemesis. No hematochezia. Appetite has improved. GENITOURINARY: No urgency. No frequency. No dysuria. No hematuria. No obstructive symptoms. No discharge. No pain. No significant abnormal bleeding. MUSCULOSKELETAL: No musculoskeletal pain; no joint swelling. NEUROLOGICAL: No headache. No neck pain. No syncope. No seizures. No dizziness. PSYCHIATRIC: Not anxious. No depression. No suicidal thoughts. No homicidal thoughts. SKIN: No rash. No lesions. No wounds. ENDOCRINE: No unexplained weight loss. No weight gain. HEMATOLOGIC/LYMPHATIC: No anemia. No purpura. No petechiae. No prolonged or excessive bleeding. No palpable lymph nodes. PHYSICAL EXAMINATION: HEENT: Head normocephalic, atraumatic. Eyes: Extraocular muscles are intact. Pupils are equal, round and reactive to light and accommodation. Ears: No lesions. Nose appeared normal. Throat: No exudate or erythema. NECK: Supple. No JVD, no carotid bruit. No lymphadenopathy or thyromegaly. LUNGS: Decreased breath sounds but clear to auscultation. Percussion note normal. Chest symmetrical. HEART: S1, S2, no S3. No murmurs. No cyanosis or clubbing. No ascites. Pulses: Dorsalis pedis and posterior tibial pulses +1 to +2 both sides. ABDOMEN: Soft. Nontender. Bowel sounds active. No CVA tenderness. No mass felt. EXTREMITIES: No edema. Full range of motion of all extremities, equal. NEUROLOGIC: No focal deficit. Cranial nerves II through XII are grossly intact. No headache, no double vision or headache. SKIN: Not dry. Intact. Turgor - normal. LYMPHATIC: No palpable lymph nodes/no lymphedema. MUSCULOSKELETAL: Normal joints with no swelling. Muscle tone is normal. LABS: The patient has declined to get it done but the later on the potassium was reported as 4.2. The patient had hyperkalemia which was treated with sodium bicarbonate, insulin with glucose IV ASSESSMENT: 1. CHF Clinically seems to be improving 2. Pneumonia seems to be resolving CONDITION: Clinically has improved. PLAN: 1. Will continue the same management with antibiotic steroids and IV Lasix 2. The patient is DNR, The is at the bedside 3. Kidney functions are stable. TIME SPENT: More than 30 minutes. Plan and coordination of the patient's care discussed in the presence of nurse. CRISTINA
--- NOTE | 2017-06-13 09:49 | PCM.PROG ---
Attending Provider: ATTENDING PROVIDER: Dr. RONNY PAGE This patient is seen with Jazmine Armstrong, Nurse Practitioner. DATE OF SERVICE: 06/13/17 SUBJECTIVE: This 87 year old WHITE/ F was hospitalized 06/07/17. The patient is lying in bed, somewhat anxious, REVIEW OF SYSTEMS: CONSTITUTIONAL: Weakness. No night sweats. No fever or chills. HEENT: Eyes: No visual changes. No eye pain. No eye discharge. ENT: No runny nose. No epistaxis. No sinus pain. No odynophagia. No congestion. RESPIRATORY: No cough, no congestion. No hemoptysis. No shortness of breath. CARDIOVASCULAR: No angina symptoms. No CHF symptoms. No atypical chest pain for CAD. No palpitations. No orthopnea.. GASTROINTESTINAL: No abdominal pain. No nausea or vomiting. No diarrhea or constipation. No hematemesis. No hematochezia. GENITOURINARY: No urgency. No frequency. No dysuria. No hematuria. No obstructive symptoms. No discharge. No pain. No significant abnormal bleeding. MUSCULOSKELETAL: Leg edema. NEUROLOGICAL: Awake, alert, oriented to time, place and person. No headache. No neck pain. No syncope. No seizures. No dizziness. PSYCHIATRIC: Somewhat anxious. No depression. No suicidal thoughts. No homicidal thoughts. SKIN: No rash. No lesions. No wounds. ENDOCRINE: No unexplained weight loss. No weight gain. HEMATOLOGIC/LYMPHATIC: No anemia. No purpura. No petechiae. No prolonged or excessive bleeding. No palpable lymph nodes. PHYSICAL EXAMINATION: GENERAL: The patient is awake, alert and oriented, lying in bed in no distress. VITAL SIGNS: Temperature 96 F, Pulse 102, Respiratory Rate 20, BP 111/79, Pulse Ox 99% HEENT: Head normocephalic, atraumatic. Eyes: Extraocular muscles are intact. Pupils are equal, round and reactive to light and accommodation. Ears: No lesions. Nose appeared normal. Throat: No exudate or erythema. NECK: Supple. No JVD, no carotid bruit. No lymphadenopathy or thyromegaly. LUNGS: Diminished breath sounds. Clear to auscultation. Percussion note normal. Chest symmetrical. HEART: S1, S2, no S3. No murmurs. No cyanosis or clubbing. No ascites. Pulses: Dorsalis pedis and posterior tibial pulses +1 to +2 both sides. ABDOMEN: Soft. Non-tender. Bowel sounds active. No CVA tenderness. No mass felt. EXTREMITIES: +1 pedal edema. Full range of motion of all extremities, equal. NEUROLOGIC: No focal deficit. Cranial nerves II through XII are grossly intact. No headache, no double vision or headache. SKIN: Not dry. Intact. Turgor-normal. LYMPHATIC: No palpable lymph nodes/no lymphedema. MUSCULOSKELETAL: Normal joints with no swelling. Muscle tone is normal. LAB REVIEW: 06/11/17 07:08 06/13/17 04:30 06/13/17 04:30: Sodium 143, Potassium 3.7, Chloride 103, Carbon Dioxide 31, Anion Gap 12.7, BUN 51 H, Creatinine 1.72 H, Estimated GFR (MDRD) 28.00, BUN/ Creatinine Ratio 29.65, Glucose 158 H, Calcium 8.8 06/12/17 08:40: Sodium 142, Potassium 3.1 L D, Chloride 104, Carbon Dioxide 26, Anion Gap 15.1, BUN 46 H, Creatinine 1.70 H, Estimated GFR (MDRD) 29.00, BUN/ Creatinine Ratio 27.05, Glucose 206 H, Calcium 8.8 ASSESSMENT: 1. CHF/pneumonia being treated with antibiotics and steroids 2. Acute on chronic renal failure 3. Hypokalemia 4. Leg edema PLAN: 1. Potassium 20 mEq daily 2. Prednisone 20 mg daily 3. D/C Solu-Medrol Plan and coordination of the patient's care discussed in the presence of Beading Sawyer and nurse. CONDITION: Stable SCRIBED BY: Noy CHOI scribed while in presence of service performed by Dr. Page/Jazmine Armstrong APRN on 06/13/17 ([id number])
[2017-06-13 10:40] VITALS: BP 115/78; TEMP 97.6
--- NOTE | 2017-06-16 10:30 | PN ---
06/07/17: Level 5 06/08/17: Intermediate 06/09/17: Intermediate 06/10/17: Intermediate 06/11/17: Intermediate 06/12/17: Brief 06/13/17: D as in discharge/ Admitted to swing bed. MTDD
--- NOTE | 2017-06-19 14:23 | DS ---
DATE OF SERVICE: 06/13/17 FINAL DIAGNOSIS: 1. CHF 2. Pneumonia 3. Hyperkalemia 4. Weakness 5. Hypotension 6. Dehydration 7. UTI, e-coli 8. Dilated cardiomyopathy 9. Severe COPD 10. Hypertension 11. CAD 12. Atrial fibrillation ( on Xarelto) 13. GERD 14. Depression 15. Bilateral sciatica 16. Cholecystectomy 17. Pacemaker DISCHARGE INSTRUCTIONS: Admit to Swing Bed. Stop IV steroids. Continue IV antibiotics. Continue IV Lasix . Elevate legs. [place] Catheter care. MEDICATIONS AT DISCHARGE: Nitrostat 0.4mg SL Q 5 minutes x 3 doses PRn Tramadol HCL 50mg PO three times a day PRN K-Dur 20meq PO daily Multivitamin Daily 1 each PO bedtime Xarelto 20mg PO QPM Butalbital ASA 1 each PO Q 6 hours PRN Zofran 4mg PO Q 8 hours Lasix 20mg PO QDAC Coreg 3.125mg Po twice a day Levsin 0.125mg PO three times a day PRN Oxycodone 5mg PO three times a day PRN Lexapro 10mg Po daily Protonix 40mg PO daily Lunesta 1mg PO bedtime PRN Valium 5mg Po twice a day Stool Softener 100mg PO daily PRN DIET INSTRUCTIONS: As tolerated ACTIVITY: As tolerated up to side of bed. SMOKING: Nonsmoker DISEASE SPECIFIC EDUCATION: Swing Bed Medications Leg elevation HOSPITAL COURSE: 87 year old white female was hospitalized because of CHF and pneumonitis. The patient has been treated with IV Lasix intermittently with the IV antibiotics steroids. The patient was dehydrated and malnourished. Appetite improved. Oral condition improved to some extent. The patient has endstage congestive heart failure and chronic lung disease, she is debilitated, pacemaker and poor ejection fraction. The patient is DNR. Recently she was hospitalized at [facility] and discharged home. The family is happy with the care that they are receiving. The patient will be discharged to swing bed. TIME SPENT: More than 60 minutes. CRISTINA
== END 2017-06-13 13:48 | disposition swing bed (61) | DRG 193 ==
LOC: ED 09:10 → MEDSURG A 11:15
PROVIDERS: ADMIT Internal Medicine; ATTEND Internal Medicine
DX: J18.9 Pneumonia, unspecified organism (principal); I50.21 Acute systolic (congestive) heart failure; J91.8 Pleural effusion in other conditions classified elsewhere; N39.0 Urinary tract infection, site not specified; I42.0 Dilated cardiomyopathy; N17.9 Acute kidney failure, unspecified; J20.9 Acute bronchitis, unspecified; R06.02 Shortness of breath; I51.7 Cardiomegaly; I48.91 Unspecified atrial fibrillation; R00.0 Tachycardia, unspecified; I25.10 Atherosclerotic heart disease of native coronary artery without angina pectoris; I10 Essential (primary) hypertension; I95.9 Hypotension, unspecified; E86.0 Dehydration; R53.1 Weakness; J44.9 Chronic obstructive pulmonary disease, unspecified; N18.9 Chronic kidney disease, unspecified; K21.9 Gastro-esophageal reflux disease without esophagitis; M15.9 Polyosteoarthritis, unspecified; E87.5 Hyperkalemia; G47.00 Insomnia, unspecified; F32.9 Major depressive disorder, single episode, unspecified; Z95.0 Presence of cardiac pacemaker; Z79.01 Long term (current) use of anticoagulants; B96.20 Unspecified Escherichia coli [E. coli] as the cause of diseases classified elsewhere; Z79.899 Other long term (current) drug therapy; Z66 Do not resuscitate
CPT/HCPCS: 36415; 80048; 80053; 81001; 82550; 83605; 83880; 84145; 84484; 85008; 85025; 87040; 87081; 87086; 93005; 93010; 94640; 96365; 96375; 99284

== ENCOUNTER 2017-06-13 13:50 | Inpatient (IN) ==
[2017-06-13] MEDS ORDERED: ZOFRAN TAB PO SCH (15:30)
[2017-06-13] MEDS ORDERED: ZOFRAN 4 MG/2 ML IVP PRN (16:33)
[2017-06-13] MEDS: XARELTO PO SCH (16:50)
[2017-06-13] MEDS: COREG PO SCH (16:50)
[2017-06-13] MEDS: NYSTATIN ORAL SUSP PO SCH ×2 (16:50→20:24)
[2017-06-13] MEDS ORDERED: NON-FORMULARY MEDICATION (Rivaroxaban [Xarelto] 20 MG) PO SCH (17:00)
[2017-06-13] MEDS ORDERED: NON-FORMULARY MEDICATION (Rivaroxaban [Xarelto] 15 MG) PO SCH (17:00)
[2017-06-13] MEDS: VALIUM PO SCH (20:25)
[2017-06-13] MEDS: COLACE PO SCH (20:25)
[2017-06-13] MEDS: NEURONTIN PO SCH (20:25)
[2017-06-13] MEDS: MULTIVITAMIN TABLET PO SCH (20:28)
[2017-06-13] MEDS: DUONEB NEB SCH (22:35)
[2017-06-14] MEDS: DUONEB NEB SCH ×4 (05:10→19:04)
[2017-06-14] MEDS: LASIX IVP SCH (06:12)
[2017-06-14] MEDS: PROTONIX PO SCH (06:12)
[2017-06-14] MEDS: NYSTATIN ORAL SUSP PO SCH ×4 (06:12→21:05)
[2017-06-14] MEDS: VALIUM PO SCH ×2 (08:45→21:05)
[2017-06-14] MEDS: K-DUR PO SCH (08:46)
[2017-06-14] MEDS: COREG PO SCH ×2 (08:46→16:55)
[2017-06-14] MEDS: NEURONTIN PO SCH ×3 (08:46→21:07)
[2017-06-14] MEDS: LOVENOX SUBCUT SCH (08:46)
[2017-06-14] MEDS: LEXAPRO PO SCH (08:46)
[2017-06-14] MEDS: COLACE PO SCH ×2 (08:46→21:07)
[2017-06-14] MEDS: ROCEPHIN 1 GM in SODIUM CHLORIDE 50 ML IV SCH (08:48)
[2017-06-14] MEDS: OXYCODONE PO PRN (11:38)
[2017-06-14] MEDS: XARELTO PO SCH (16:53)
[2017-06-14] MEDS: ULTRAM PO PRN (19:10)
[2017-06-14] MEDS: TORADOL IVP PRN (21:03)
[2017-06-14] MEDS: LUNESTA PO PRN (21:06)
[2017-06-14] MEDS: MULTIVITAMIN TABLET PO SCH (21:07)
[2017-06-15] MEDS: LASIX IVP SCH (06:14)
[2017-06-15] MEDS: NYSTATIN ORAL SUSP PO SCH ×4 (06:15→20:06)
[2017-06-15] MEDS: PROTONIX PO SCH (06:15)
[2017-06-15] MEDS: TORADOL IVP PRN ×3 (06:24→22:26)
[2017-06-15] MEDS: DUONEB NEB SCH ×4 (06:33→23:05)
[2017-06-15] MEDS: K-DUR PO SCH (08:03)
[2017-06-15] MEDS: OXYCODONE PO PRN ×2 (08:03→20:31)
[2017-06-15] MEDS: COREG PO SCH ×2 (08:03→17:06)
[2017-06-15] MEDS: ROCEPHIN 1 GM in SODIUM CHLORIDE 50 ML IV SCH (08:04)
[2017-06-15] MEDS: COLACE PO SCH ×2 (09:49→20:06)
[2017-06-15] MEDS: VALIUM PO SCH ×2 (09:49→20:06)
[2017-06-15] MEDS: LEXAPRO PO SCH (09:49)
[2017-06-15] MEDS: LOVENOX SUBCUT SCH (09:49)
[2017-06-15] MEDS: NEURONTIN PO SCH ×3 (09:49→20:06)
[2017-06-15] MEDS ORDERED: LASIX IVP STA (10:49)
[2017-06-15] MEDS: XARELTO PO SCH (17:06)
[2017-06-15] MEDS: MULTIVITAMIN TABLET PO SCH (20:06)
[2017-06-15] MEDS: LUNESTA PO PRN (20:44)
[2017-06-16] MEDS: DUONEB NEB SCH ×4 (05:08→21:55)
[2017-06-16] MEDS: LASIX IVP SCH (05:37)
[2017-06-16] MEDS: PROTONIX PO SCH (05:37)
[2017-06-16] MEDS: NYSTATIN ORAL SUSP PO SCH ×4 (05:37→20:35)
[2017-06-16] MEDS: TORADOL IVP PRN ×2 (06:40→20:36)
[2017-06-16] MEDS: OXYCODONE PO PRN ×2 (06:41→15:15)
[2017-06-16] MEDS: ROCEPHIN 1 GM in SODIUM CHLORIDE 50 ML IV SCH (08:13)
[2017-06-16] MEDS: COREG PO SCH ×2 (08:14→17:23)
[2017-06-16] MEDS: LEXAPRO PO SCH (08:14)
[2017-06-16] MEDS: K-DUR PO SCH (08:14)
[2017-06-16] MEDS: NEURONTIN PO SCH ×3 (08:14→20:35)
[2017-06-16] MEDS: COLACE PO SCH ×2 (08:14→20:35)
[2017-06-16] MEDS: LOVENOX SUBCUT SCH (08:14)
[2017-06-16] MEDS: VALIUM PO SCH ×2 (08:14→20:35)
[2017-06-16] MEDS ORDERED: LASIX IVP STA (08:41)
--- NOTE | 2017-06-16 15:40 | PN ---
DATE OF SERVICE: 06/20/17 SUBJECTIVE: 87 year old white female hospitalized with CHF and pneumonitis. The patient is being treated with IV antibiotics and Lasix. The patient has tissue edema. She will be given Lasix IV 40mg today. Daily CBC and CMP to be continued. The patient's slept well because of Lunesta. We will continue to give her that. The patient's says that she is feeling better. Appetite is still not up to normal but she has been eating. Advised to eat small meals. REVIEW OF SYSTEMS: CONSTITUTIONAL: No night sweats. No fatigue, malaise, lethargy. No fever or chills. HEENT: Eyes: No visual changes. No eye pain. No eye discharge. ENT: No runny nose. No epistaxis. No sinus pain. No sore throat. No odynophagia. No congestion. RESPIRATORY: No cough, no congestion. No hemoptysis. Shortness of breath on minimal exertion. CARDIOVASCULAR: No angina symptoms. No CHF symptoms. No atypical chest pain for CAD. No palpitations. No orthopnea. No chest pain. GASTROINTESTINAL: No abdominal pain. No nausea or vomiting. No diarrhea or constipation. No hematemesis. No hematochezia. GENITOURINARY: No urgency. No frequency. No dysuria. No hematuria. No obstructive symptoms. No discharge. No pain. No significant abnormal bleeding. MUSCULOSKELETAL: No musculoskeletal pain; no joint swelling. Generalized aches and pains from being in the bed. NEUROLOGICAL: No headache. No neck pain. No syncope. No seizures. No dizziness. PSYCHIATRIC: Not anxious. No depression. No suicidal thoughts. No homicidal thoughts. SKIN: No rash. No lesions. No wounds. ENDOCRINE: No unexplained weight loss. No weight gain. HEMATOLOGIC/LYMPHATIC: No anemia. No purpura. No petechiae. No prolonged or excessive bleeding. No palpable lymph nodes. PHYSICAL EXAMINATION: GENERAL: The patient seems to be oriented to time,place and person. VITAL SIGNS: Temperature 97.5, pulse 90, respiratory rate 14, blood pressure 90 /64 and pulse ox 93%. HEENT: Head normocephalic, atraumatic. Eyes: Extraocular muscles are intact. Pupils are equal, round and reactive to light and accommodation. Ears: No lesions. Nose appeared normal. Throat: No exudate or erythema. NECK: Supple. No JVD, no carotid bruit. No lymphadenopathy or thyromegaly. LUNGS: Decreased breath sounds but clear to auscultation. Percussion note normal. Chest symmetrical. HEART: S1, S2, no S3. No murmurs. No cyanosis or clubbing. No ascites. Pulses: Dorsalis pedis and posterior tibial pulses +1 to +2 both sides. ABDOMEN: Soft. Nontender. Bowel sounds active. No CVA tenderness. No mass felt. EXTREMITIES: No edema. Full range of motion of all extremities, equal. NEUROLOGIC: No focal deficit. Cranial nerves II through XII are grossly intact. No headache, no double vision or headache. SKIN: Not dry. Intact. Turgor - normal. LYMPHATIC: No palpable lymph nodes/no lymphedema. MUSCULOSKELETAL: Normal joints with no swelling. Muscle tone is normal. LABS: Hgb 15, hct 44, WBC 11,000 normal differential, creatinine 1.4, BUN 48, potassium 3.6. ASSESSMENT: 1. CHF, Stable 2. Pneumonitis, Stable 3. Pacemaker, Stable 4. Malnutrition, Stable PROGNOSIS: Poor considering the patient's endstage CHF and cardiac condition with poor ejection fraction. PLAN: 1. Continue steroids, IV intermittent IM Lasix 2. Encouraged the patient to eat. TIME SPENT: More than 30 minutes. Plan and coordination of the patient's care discussed in the presence of nurse. CRISTINA
[2017-06-16] MEDS: XARELTO PO SCH (17:23)
[2017-06-16] MEDS: LUNESTA PO PRN (20:34)
[2017-06-16] MEDS: MULTIVITAMIN TABLET PO SCH (20:35)
[2017-06-17] MEDS ORDERED: NITROSTAT SL STA (04:23)
[2017-06-17] MEDS: DUONEB NEB SCH ×4 (05:10→20:10)
[2017-06-17] MEDS: LASIX IVP SCH (06:38)
[2017-06-17] MEDS: NYSTATIN ORAL SUSP PO SCH ×4 (06:39→21:35)
[2017-06-17] MEDS: PROTONIX PO SCH (06:39)
[2017-06-17] MEDS: ROCEPHIN 1 GM in SODIUM CHLORIDE 50 ML IV SCH (10:51)
[2017-06-17] MEDS: K-DUR PO SCH ×3 (10:51→17:44)
[2017-06-17] MEDS: COLACE PO SCH ×2 (10:51→21:34)
[2017-06-17] MEDS: NEURONTIN PO SCH ×3 (10:52→21:35)
[2017-06-17] MEDS: LOVENOX SUBCUT SCH (10:52)
[2017-06-17] MEDS: COREG PO SCH ×2 (10:52→17:45)
[2017-06-17] MEDS: LEXAPRO PO SCH (10:52)
[2017-06-17] MEDS: VALIUM PO SCH ×2 (10:55→21:35)
[2017-06-17] MEDS: XARELTO PO SCH (17:45)
[2017-06-17] MEDS: MULTIVITAMIN TABLET PO SCH (21:35)
[2017-06-17] MEDS: LUNESTA PO PRN (21:38)
[2017-06-18] MEDS: OXYCODONE PO PRN ×2 (01:18→20:24)
[2017-06-18] MEDS: DUONEB NEB SCH ×4 (05:15→21:48)
[2017-06-18] MEDS: LASIX IVP SCH (05:46)
[2017-06-18] MEDS: NYSTATIN ORAL SUSP PO SCH ×4 (05:46→20:23)
[2017-06-18] MEDS: PROTONIX PO SCH (05:46)
[2017-06-18] MEDS: COREG PO SCH ×2 (09:01→16:48)
[2017-06-18] MEDS: COLACE PO SCH ×2 (09:01→20:23)
[2017-06-18] MEDS: VALIUM PO SCH ×2 (09:01→20:25)
[2017-06-18] MEDS: ROCEPHIN 1 GM in SODIUM CHLORIDE 50 ML IV SCH (09:01)
[2017-06-18] MEDS: LEXAPRO PO SCH (09:02)
[2017-06-18] MEDS: NEURONTIN PO SCH ×3 (09:02→20:23)
[2017-06-18] MEDS: K-DUR PO SCH ×2 (09:02→16:48)
[2017-06-18] MEDS: LOVENOX SUBCUT SCH (09:02)
[2017-06-18] MEDS: ULTRAM PO PRN (14:53)
[2017-06-18] MEDS: XARELTO PO SCH (16:48)
[2017-06-18] MEDS ORDERED: K-DUR PO STA (17:58)
[2017-06-18] MEDS: MULTIVITAMIN TABLET PO SCH (20:24)
[2017-06-18] MEDS: LUNESTA PO PRN (20:24)
[2017-06-18] MEDS ORDERED: K-DUR PO SCH (21:00)
[2017-06-19] MEDS: TORADOL IVP PRN (02:23)
[2017-06-19] MEDS: DUONEB NEB SCH ×4 (05:02→21:25)
[2017-06-19] MEDS: NYSTATIN ORAL SUSP PO SCH ×4 (06:20→21:00)
[2017-06-19] MEDS: LASIX IVP SCH (06:20)
[2017-06-19] MEDS: PROTONIX PO SCH (06:20)
[2017-06-19] MEDS: VALIUM PO SCH ×2 (08:26→21:01)
[2017-06-19] MEDS: K-DUR PO SCH ×4 (08:26→16:31)
[2017-06-19] MEDS: NEURONTIN PO SCH ×3 (08:26→21:01)
[2017-06-19] MEDS: COREG PO SCH ×2 (08:26→16:31)
[2017-06-19] MEDS: LEXAPRO PO SCH (08:27)
[2017-06-19] MEDS: LOVENOX SUBCUT SCH (08:27)
[2017-06-19] MEDS: COLACE PO SCH ×2 (08:27→21:02)
[2017-06-19] MEDS: ROCEPHIN 1 GM in SODIUM CHLORIDE 50 ML IV SCH (08:28)
--- NOTE | 2017-06-19 11:47 | PN ---
DATE OF SERVICE: 06/13/17 SUBJECTIVE: The patient was seen with the Nurse Practitioner. Her medical condition is stable. She is looking somewhat better clinically. Some slow improvement. She will be continued on increasing dose of Lasix. Will monitor the kidney function. The patient has chronic CHF endstage so we will have to balance the kidney function with her diaeresis. He has hypoproteinemia and poor ejection fraction with practically no mobility so the condition may stay the same. Encouraging the patient to eat. Her blood pressure is 111/79 which is very good and acceptable with oxygen saturation 99% on 2 liters. The patient was seen and examined with Nurse Practitioner. TIME SPENT: More than 30 minutes. Plan and coordination of the patient's care discussed in the presence of nurse. CRISTINA
[2017-06-19] MEDS ORDERED: LASIX IVP SCH (12:00)
--- NOTE | 2017-06-19 13:56 | PN ---
DATE OF SERVICE: 06/14/17 SUBJECTIVE: 87 year old white female hospitalized originally with pneumonitis and congestive heart failure. She is in the swing bed now. Her condition seems to be improving. This morning she had a good breakfast. The is in the room. REVIEW OF SYSTEMS: CONSTITUTIONAL: No night sweats. No fatigue, malaise, lethargy. No fever or chills. HEENT: Eyes: No visual changes. No eye pain. No eye discharge. ENT: No runny nose. No epistaxis. No sinus pain. No sore throat. No odynophagia. No congestion. RESPIRATORY: No cough, no congestion. No hemoptysis. Shortness of breath on minimal exertion as usual. CARDIOVASCULAR: No angina symptoms. No CHF symptoms. No atypical chest pain for CAD. No palpitations. No orthopnea. No PND. GASTROINTESTINAL: No abdominal pain. No nausea or vomiting. No diarrhea or constipation. No hematemesis. No hematochezia. GENITOURINARY: No urgency. No frequency. No dysuria. No hematuria. No obstructive symptoms. No discharge. No pain. No significant abnormal bleeding. MUSCULOSKELETAL: No musculoskeletal pain; no joint swelling. NEUROLOGICAL: No headache. No neck pain. No syncope. No seizures. No dizziness. PSYCHIATRIC: Not anxious. No depression. No suicidal thoughts. No homicidal thoughts. SKIN: No rash. No lesions. No wounds. ENDOCRINE: No unexplained weight loss. No weight gain. HEMATOLOGIC/LYMPHATIC: No anemia. No purpura. No petechiae. No prolonged or excessive bleeding. No palpable lymph nodes. PHYSICAL EXAMINATION: VITAL SIGNS: Temperature 97.4, pulse 100, respiratory rate 16, blood pressure 118/85 and pulse ox 98%. HEENT: Head normocephalic, atraumatic. Eyes: Extraocular muscles are intact. Pupils are equal, round and reactive to light and accommodation. Ears: No lesions. Nose appeared normal. Throat: No exudate or erythema. NECK: Supple. No JVD, no carotid bruit. No lymphadenopathy or thyromegaly. LUNGS: Decreased breath sounds at bases. Clear to auscultation. Percussion note normal. Chest symmetrical. HEART: S1, S2, no S3. No murmurs. No cyanosis or clubbing. No ascites. Pulses: Dorsalis pedis and posterior tibial pulses +1 to +2 both sides. ABDOMEN: Soft. Nontender. Bowel sounds active. No CVA tenderness. No mass felt. EXTREMITIES:Trace to +1 pitting edema. Full range of motion of all extremities , equal. Edema of the upper extremities has subsided. NEUROLOGIC: No focal deficit. Cranial nerves II through XII are grossly intact. No headache, no double vision or headache. SKIN: Not dry. Intact. Turgor - normal. LYMPHATIC: No palpable lymph nodes/no lymphedema. MUSCULOSKELETAL: Normal joints with no swelling. Muscle tone is normal. LABS: Hgb 15, hct 44, WBC 11,000 normal differential, creatinine 1.4, BUN 48, potassium 3.6 ASSESSMENT: 1. Pneumonitis resolving 2. CHF under control 3. 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 Pacemaker 5. 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 Continue IV Lasix intermittently 2. Continue antibiotics and steroids 3. Encouraged patient to eat CONDITION: Stable PROGNOSIS: Poor TIME SPENT: More than 30 minutes. Plan and coordination of the patient's care discussed in the presence of nurse. CRISTINA
--- NOTE | 2017-06-19 14:10 | PCM.PROG ---
Attending Provider: ATTENDING PROVIDER: Dr. RONNY PAGE This patient is seen with Jazmine Armstrong, Nurse Practitioner. DATE OF SERVICE: 06/17/17 SUBJECTIVE: This 87 year old WHITE/ F was hospitalized 06/13/17. Lying in bed, alert. She is resting comfortably in no distress. She has been eating fairly well. Leg edema has improved. REVIEW OF SYSTEMS: CONSTITUTIONAL: Weakness. No night sweats. No fever or chills. HEENT: Eyes: No visual changes. No eye pain. No eye discharge. ENT: No runny nose. No epistaxis. No sinus pain. No odynophagia. No congestion. RESPIRATORY: No cough, no congestion. No hemoptysis. Shortness of breath. CARDIOVASCULAR: No angina symptoms. No CHF symptoms. No atypical chest pain for CAD. No palpitations. No orthopnea.. GASTROINTESTINAL: No abdominal pain. No nausea or vomiting. No diarrhea or constipation. No hematemesis. No hematochezia. GENITOURINARY: No urgency. No frequency. No dysuria. No hematuria. No obstructive symptoms. No discharge. No pain. No significant abnormal bleeding. MUSCULOSKELETAL: No musculoskeletal pain; no joint swelling. NEUROLOGICAL: Awake, alert, oriented to time, place and person. No headache. No neck pain. No syncope. No seizures. No dizziness. PSYCHIATRIC: Not anxious. No depression. No suicidal thoughts. No homicidal thoughts. SKIN: No rash. No lesions. No wounds. ENDOCRINE: No unexplained weight loss. No weight gain. HEMATOLOGIC/LYMPHATIC: No anemia. No purpura. No petechiae. No prolonged or excessive bleeding. No palpable lymph nodes. PHYSICAL EXAMINATION: GENERAL: The patient is awake, alert and oriented, lying in bed in no distress. VITAL SIGNS: Temperature 97.7 F, Pulse 76, Respiratory Rate 16, BP 105/73, Pulse Ox 95% HEENT: Head normocephalic, atraumatic. Eyes: Extraocular muscles are intact. Pupils are equal, round and reactive to light and accommodation. Ears: No lesions. Nose appeared normal. Throat: No exudate or erythema. NECK: Supple. No JVD, no carotid bruit. No lymphadenopathy or thyromegaly. LUNGS: Diminished breath sounds bilaterally. Clear to auscultation. Percussion note normal. Chest symmetrical. HEART: Irregular heart rate. S1, S2, no S3. No murmurs. No cyanosis or clubbing. No ascites. Pulses: Dorsalis pedis and posterior tibial pulses +1 to +2 both sides. ABDOMEN: Soft. Non-tender. Bowel sounds active. No CVA tenderness. No mass felt. EXTREMITIES: Trace leg edema improved. Full range of motion of all extremities , equal. NEUROLOGIC: No focal deficit. Cranial nerves II through XII are grossly intact. No headache, no double vision or headache. SKIN: Not dry. Intact. Turgor-normal. LYMPHATIC: No palpable lymph nodes/no lymphedema. MUSCULOSKELETAL: Normal joints with no swelling. Muscle tone is normal. LAB REVIEW: 06/17/17 03:45 06/17/17 03:45 06/17/17 03:45: Total Creatine Kinase 27, Troponin I 0.1910 06/17/17 03:45: Sodium 142, Potassium 3.1 L, Chloride 102, Carbon Dioxide 33 H, Anion Gap 10.1, BUN 39 H, Creatinine 1.10, Estimated GFR (MDRD) 47.00, BUN/ Creatinine Ratio 35.45, Glucose 93, Calcium 8.2, Total Bilirubin 0.6, AST 31, ALT 48 D, Alkaline Phosphatase 97, Total Protein 5.3 L, Albumin 2.0 L, Globulin 3.3, Albumin/Globulin Ratio 0.61 06/17/17 03:45: WBC 8.43, RBC 4.60, Hgb 14.2, Hct 42.5, MCV 92.4, MCH 30.9, MCHC 33.4, RDW Coeff of Estuardo 16.0 H, Plt Count 169, Immature Gran % (Auto) 0.4, Neut % (Auto) 73.7, Lymph % (Auto) 15.5, [place] % (Auto) 6.0, Eos % (Auto) 4.3, Baso % (Auto) 0.1, Immature Gran # (Auto) 0.0, Neut # 6.2, Lymph # 1.3, [place] # 0.5, Eos # 0.4, Baso # 0.0 ASSESSMENT: 1. CHF/pneumonia being treated with antibiotics and steroids 2. Acute on chronic renal failure 3. Hypokalemia 4. Leg edema PLAN: 1. Potassium 20 mEq b.i.d. 2. Colace b.i.d. 100 Plan and coordination of the patient's care discussed in the presence of Equal Opportunity Officer and nurse. CONDITION: Stable SCRIBED BY: MARY BROWNING, Service Counselor scribed while in presence of service performed by Dr. Page/Jazmine Armstrong APRN on 06/17/17 (1978)
[2017-06-19] MEDS: XARELTO PO SCH (16:28)
[2017-06-19] MEDS: OXYCODONE PO PRN (21:01)
[2017-06-19] MEDS: LUNESTA PO PRN (21:01)
[2017-06-19] MEDS: MULTIVITAMIN TABLET PO SCH (21:02)
[2017-06-20] MEDS: TORADOL IVP PRN (02:54)
[2017-06-20] MEDS: XANAX PO PRN (03:12)
[2017-06-20] MEDS: DUONEB NEB SCH ×4 (04:50→20:05)
[2017-06-20] MEDS: LASIX IVP SCH (05:42)
[2017-06-20] MEDS: NYSTATIN ORAL SUSP PO SCH ×4 (06:00→20:24)
[2017-06-20] MEDS: PROTONIX PO SCH (06:00)
[2017-06-20] MEDS: LOVENOX SUBCUT SCH (08:37)
[2017-06-20] MEDS: COREG PO SCH ×2 (08:37→16:50)
[2017-06-20] MEDS: NEURONTIN PO SCH ×3 (08:37→20:24)
[2017-06-20] MEDS: VALIUM PO SCH ×2 (08:37→20:24)
[2017-06-20] MEDS: K-DUR PO SCH (08:37)
[2017-06-20] MEDS: LEXAPRO PO SCH (08:37)
[2017-06-20] MEDS: ROCEPHIN 1 GM in SODIUM CHLORIDE 50 ML IV SCH (08:37)
[2017-06-20] MEDS: COLACE PO SCH ×2 (08:37→20:24)
[2017-06-20] MEDS ORDERED: K-DUR PO STA (08:43)
[2017-06-20] MEDS ORDERED: KAYEXALATE SUSP PO STA (10:22)
--- NOTE | 2017-06-20 10:23 | RS.PTINEVL ---
Subjective - Patient information Date of Evaluation: 06/20/17 Date of Arrival on Unit: 06/13/17 Admitted From:: In-House Transfer Diagnosis: CHF, pneumonia, acute on chronic renal failure, CAD end stage Usual Living Arrangement: With Others Living Arrangement Comments: Pt has a spouse and family living with her to help take care of her. Pt has a hospital bed at home as well as w/c, ramp, BSC, wx Home Environment: House, [facility] Medical History: CHF, Arthritis Medical History Comments:: anxiety, depression, GERD, afib, renal failure LATEX ALLERGY?: No Medications: see chart Subjective Information/ Patient Comments:: pt states "I am determined to get better." reports his goal is for pt to be able to transfer bed to/from w /c and sit to/from stand so he can help her with hygeine issues. - Level of function Prior to this admission, the patient could do the following:: Partially Dependent Ambulation Abilities prior to this admission: pt was able to walk very short distances prior to admission with CGA to SBA. Current Level of Function: Dependent Current Equipment Used at Home: rwx, w/c, hosp bed, BSC Interventions - Objective Patient Orientation: Person, Place Current Interventions: IV's, Oxygen, Telemetry, [place] Catheter Range of Motion - ROM Right Upper Extremity AROM: WFL's Left Upper Extremity AROM: WFL's Right Lower Extremity AROM: WFL's Left Lower Extremity AROM: WFL's Muscle Strength - Muscle Strength Right Upper Extremity Strength: Mild Weakness (shld flex 3+/5, elbow flex/ext 4- /5 decreased computer hardware designer strength,) Left Upper Extremity Strength: Mild Weakness (shld flex 3+/5, elbow flex/ext 4-/ 5 decreased computer hardware designer strength,) Right Lower Extremity Strength: Mild Weakness (hip flex 3+/5, knee flex/ext 4-/5 , ankle DF/PF 4-/5) Left Lower Extremity Strength: Mild Weakness (hip flex 3+/5, knee flex/ext 4-/5 , ankle DF/PF 4-/5) Sensation - Sensation Right Upper Extremity Sensation: Intact/Normal Left Upper Extremity Sensation: Intact/Normal Right Lower Extremity Sensation: Intact/Normal Left Lower Extremity Sensation: Intact/Normal Balance - Sitting Balance and Reactions Static Sitting Balance: Poor Dynamic Sitting Balance: Poor Sitting Equilibrium Reactions: Delayed Left, Delayed Right Sitting Protective Reactions: Delayed Left, Delayed Right - Standing Balance and Reactions Static Standing Balance: Poor Dynamic Standing Balance: Zero Standing Equilibrium Reactions: Delayed Left, Delayed Right Standing Protective Reactions: Delayed Left, Delayed Right - Comments Balance Assessment Comments: pt able to sit at side of bed with SBA for approx 1 min with verbal cues. pt unable to maintain sitting balance with any resistance or reaching. Functional Mobility - Bed Mobility Rolling R/L: Max Assist, 2 person assist Scooting: Max Assist, 2 person assist Supine to Sit: Max Assist, 2 person assist Sit to Supine: Max Assist, 2 person assist - Transfers Sit to Stand: Max Assist, 2 person assist Stand to Sit: Max Assist, 2 person assist Comments:: pt stood x 2 with max of 2 with verbal cues for technique as well as for posture. pt able to stand approx 30 to 45 secs with min to mod x 2 to maintain standing. pt required to return to sup due to needing to use bedpan for BM - Safety Awareness Safety Awareness: Poor Treatment time - Time with patient Total treatment time: 28 Patient Education - Education Patient Education: Home Safety, Activity Modification, Education of Plan of Care Teaching Recipient: Patient, Family Teaching Methods: Discussion (Discussion with patient and dc plans, they plan to return home if pt is able to help with transfers. ) Assessment - Assessment Problem List:: Decreased level of function, Requires training/education, Decreased safety/Risk of falls, Weakness, Pain limits previous level of function , Cognitive status limits abilities Rehab Potential: Fair Further Therapy Indicated?: Yes Short Term Goals GOAL #1: pt perform rolling with min x 1 with bedrail Goal to be met by: 06/25/17 GOAL #2: pt transfer sup to/from sit to/from stand mod x 2 Goal to be met by: 06/25/17 GOAL #3: pt perform stand pivot transfer bed to/from chair with mod x 2 Goal to be met by: 06/25/17 Snf Goals GOAL #1: pt transfer sup to/from sit mod x 1, sit to/from stand mod x 1 Goal to be met by: 06/30/17 GOAL #2: pt stand pivot bed to/from chair with mod x 1 Goal to be met by: 06/30/17 GOAL #3: pt demonstrate improved BLE strength 4- to 4/5 and independent with HEP Goal to be met by: 06/30/17 Plan Plan of Care: Therapeutic EX, Therapeutic Activity, Self-Care/Home Management Other:: gait training Frequency of Treatment: 1-2 X day, as tolerated Duration of Treatment: 10 days Anticipated Discharge Destination: Home Has the Physician been added for Co-signature?: Yes
--- NOTE | 2017-06-20 16:32 | DI ---
EXAM: CHEST FRONTAL VIEW HISTORY: Congestive heart failure/pneumonia, follow-up. COMPARISON: 06/11/2017 FINDINGS: Stable cardiomegaly. Stable pacemaker unit. Improving central vascular congestion and in terstitial edema. Stable small bilateral pleural effusions. IMPRESSION: Improving central vascular congestion and interstitial edema.
[2017-06-20] MEDS: XARELTO PO SCH (16:50)
[2017-06-20] MEDS: MULTIVITAMIN TABLET PO SCH (20:23)
[2017-06-20] MEDS: KEFLEX PO SCH (20:24)
[2017-06-20] MEDS: LUNESTA PO PRN (20:25)
[2017-06-21] MEDS: TORADOL IVP PRN (00:33)
[2017-06-21] MEDS: OXYCODONE PO PRN ×2 (04:47→21:35)
[2017-06-21] MEDS: DUONEB NEB SCH ×4 (05:10→20:30)
[2017-06-21] MEDS: NYSTATIN ORAL SUSP PO SCH ×4 (06:05→21:34)
[2017-06-21] MEDS: LASIX IVP SCH (06:05)
[2017-06-21] MEDS: PROTONIX PO SCH (06:06)
[2017-06-21] MEDS: KEFLEX PO SCH ×3 (06:06→21:31)
[2017-06-21] MEDS: COREG PO SCH ×2 (08:11→16:33)
[2017-06-21] MEDS: LEXAPRO PO SCH (08:11)
[2017-06-21] MEDS: NEURONTIN PO SCH ×3 (08:11→21:32)
[2017-06-21] MEDS: VALIUM PO SCH ×2 (08:11→21:37)
[2017-06-21] MEDS: COLACE PO SCH ×2 (08:12→21:32)
[2017-06-21] MEDS: LOVENOX SUBCUT SCH (08:12)
[2017-06-21] MEDS: ULTRAM PO PRN (15:48)
[2017-06-21] MEDS: XARELTO PO SCH (16:32)
[2017-06-21] MEDS: MULTIVITAMIN TABLET PO SCH (21:32)
[2017-06-21] MEDS: LUNESTA PO PRN (21:32)
[2017-06-21] MEDS: XANAX PO PRN (21:37)
[2017-06-22] MEDS: DUONEB NEB SCH ×4 (05:10→19:45)
[2017-06-22] MEDS: KEFLEX PO SCH ×3 (05:17→21:10)
[2017-06-22] MEDS: PROTONIX PO SCH (05:31)
[2017-06-22] MEDS: NYSTATIN ORAL SUSP PO SCH ×4 (05:31→21:12)
[2017-06-22] MEDS: LASIX IVP SCH (05:31)
[2017-06-22] MEDS: LOVENOX SUBCUT SCH (08:31)
[2017-06-22] MEDS: NEURONTIN PO SCH ×3 (08:32→21:11)
[2017-06-22] MEDS: LEXAPRO PO SCH (08:32)
[2017-06-22] MEDS: COLACE PO SCH ×2 (08:32→21:11)
[2017-06-22] MEDS: VALIUM PO SCH ×2 (08:32→21:11)
[2017-06-22] MEDS: COREG PO SCH ×2 (08:32→16:30)
[2017-06-22] MEDS: OXYCODONE PO PRN ×2 (16:29→21:15)
[2017-06-22] MEDS: XARELTO PO SCH (16:29)
[2017-06-22] MEDS: MULTIVITAMIN TABLET PO SCH (21:11)
[2017-06-22] MEDS: LUNESTA PO PRN (21:13)
[2017-06-22] MEDS: XANAX PO PRN (21:16)
[2017-06-23] MEDS: DUONEB NEB SCH ×4 (05:37→19:50)
[2017-06-23] MEDS: NYSTATIN ORAL SUSP PO SCH ×4 (05:48→21:52)
[2017-06-23] MEDS: PROTONIX PO SCH (05:48)
[2017-06-23] MEDS: LASIX IVP SCH (05:49)
[2017-06-23] MEDS: KEFLEX PO SCH ×3 (05:49→21:52)
--- NOTE | 2017-06-23 08:35 | PN ---
DATE OF SERVICE: 06/18/17 SUBJECTIVE: 87 year old white female hospitalized on swing bed now with CHF and bronchitis. The patient's condition has steadily improved. Today she doesn't feeling good. She is kind of sleepy. She has endstage CHF and poor ejection fraction. She has declined to go to [facility] and wants me to take care of her. PHYSICAL EXAMINATION: HEENT: Head normocephalic, atraumatic. Eyes: Extraocular muscles are intact. Pupils are equal, round and reactive to light and accommodation. Ears: No lesions. Nose appeared normal. Throat: No exudate or erythema. NECK: Supple. No JVD, no carotid bruit. No lymphadenopathy or thyromegaly. LUNGS: Clear to auscultation. Percussion note normal. Chest symmetrical. HEART: Decreased breath sounds with mild wheeze. S1, S2, no S3. No murmurs. No cyanosis or clubbing. No ascites. Pulses: Dorsalis pedis and posterior tibial pulses +1 to +2 both sides. ABDOMEN: Soft. Nontender. Bowel sounds active. No CVA tenderness. No mass felt. EXTREMITIES: No edema. Full range of motion of all extremities, equal. NEUROLOGIC: No focal deficit. Cranial nerves II through XII are grossly intact. No headache, no double vision or headache. SKIN: Not dry. Intact. Turgor - normal. LYMPHATIC: No palpable lymph nodes/no lymphedema. MUSCULOSKELETAL: Normal joints with no swelling. Muscle tone is normal. LABS: Hgb 14.2, hct 42, WBC 8,400 normal differential, creatinine 1.1, BUN 39, potassium 3.1. PLAN: 1. Recheck the potassium 2. Give potassium supplements 3. Continue IV Lasix as needed 4. Will also do Echocardiogram to evaluate LV function CONDITION: Stable PROGNOSIS: Poor. TIME SPENT: More than 30 minutes. Plan and coordination of the patient's care discussed in the presence of nurse. CRISTINA
--- NOTE | 2017-06-23 08:39 | PN ---
DATE OF SERVICE: 06/19/17 SUBJECTIVE: 87 year old white female was in the swing bed. The patient's condition is slowly improving. The patient has been treated for pneumonia. The patient's CHF seems to be under control to some extent. She has refractory congestive heart failure and hypokalemia which was treated with potassium supplements give yesterday and also today. We will check the electrolytes today. PHYSICAL EXAMINATION: GENERAL: The patient is oriented to time, place and person. VITAL SIGNS: Temperature 94, pulse 87, respiratory 20, blood pressure systolic 100 and pulse ox 98. HEENT: Head normocephalic, atraumatic. Eyes: Extraocular muscles are intact. Pupils are equal, round and reactive to light and accommodation. Ears: No lesions. Nose appeared normal. Throat: No exudate or erythema. NECK: Supple. No JVD, no carotid bruit. No lymphadenopathy or thyromegaly. LUNGS: Decreased breath sounds. Percussion note normal. Chest symmetrical. HEART: S1, S2, no S3. No murmurs. No cyanosis or clubbing. No ascites. Pulses: Dorsalis pedis and posterior tibial pulses +1 to +2 both sides. ABDOMEN: Soft. Nontender. Bowel sounds active. No CVA tenderness. No mass felt. EXTREMITIES: No edema. Full range of motion of all extremities, equal. NEUROLOGIC: No focal deficit. Cranial nerves II through XII are grossly intact. No headache, no double vision or headache. SKIN: Not dry. Intact. Turgor - normal. LYMPHATIC: No palpable lymph nodes/no lymphedema. MUSCULOSKELETAL: Normal joints with no swelling. Muscle tone is normal. ASSESSMENT: 1. CHF seems to be class 4 refractory 2. CHF with poor ejection fraction 3. Pneumonia seems to be resolving slowly PLAN: 1. Continue antibiotics 2. Continue NEBS treatment and steroids. TIME SPENT: More than 30 minutes. Plan and coordination of the patient's care discussed in the presence of nurse. CRISTINA
[2017-06-23] MEDS: COLACE PO SCH ×2 (09:01→21:52)
[2017-06-23] MEDS: COREG PO SCH ×2 (09:01→17:08)
[2017-06-23] MEDS: LEXAPRO PO SCH (09:02)
[2017-06-23] MEDS: LOVENOX SUBCUT SCH (09:03)
[2017-06-23] MEDS: VALIUM PO SCH ×2 (09:05→21:52)
[2017-06-23] MEDS: NEURONTIN PO SCH ×3 (09:05→21:52)
[2017-06-23] MEDS: K-DUR PO SCH ×2 (09:18→17:10)
--- NOTE | 2017-06-23 10:44 | PCM.PROG ---
Attending Provider: ATTENDING PROVIDER: Dr. RONNY PAGE This patient is seen with Jazmine Armstrong, Nurse Practitioner. DATE OF SERVICE: 06/23/17 SUBJECTIVE: This 87 year old WHITE/ F was hospitalized 06/13/17. The patient is resting comfortably in bed. She has mild swelling to legs. Repeat chest on Friday showed improvement. The family has hospital bed and Home Health set up and would like to take her home as soon as she is able. REVIEW OF SYSTEMS: CONSTITUTIONAL: Weakness. No night sweats. No malaise, lethargy. No fever or chills. HEENT: Eyes: No visual changes. No eye pain. No eye discharge. ENT: No runny nose. No epistaxis. No sinus pain. No odynophagia. No congestion. RESPIRATORY: No cough, no congestion. No hemoptysis. No shortness of breath. CARDIOVASCULAR: No angina symptoms. No CHF symptoms. No atypical chest pain for CAD. No palpitations. No orthopnea.. GASTROINTESTINAL: No abdominal pain. No nausea or vomiting. No diarrhea or constipation. No hematemesis. No hematochezia. GENITOURINARY: No urgency. No frequency. No dysuria. No hematuria. No obstructive symptoms. No discharge. No pain. No significant abnormal bleeding. MUSCULOSKELETAL: No musculoskeletal pain; no joint swelling. NEUROLOGICAL: Awake, alert, oriented to person. No headache. No neck pain. No syncope. No seizures. No dizziness. PSYCHIATRIC: Not anxious. No depression. No suicidal thoughts. No homicidal thoughts. SKIN: No rash. No lesions. No wounds. ENDOCRINE: No unexplained weight loss. No weight gain. HEMATOLOGIC/LYMPHATIC: No anemia. No purpura. No petechiae. No prolonged or excessive bleeding. No palpable lymph nodes. PHYSICAL EXAMINATION: GENERAL: The patient is awake, alert and oriented, lying in bed in no distress. VITAL SIGNS: Temperature 97.6 F, Pulse 90, Respiratory Rate 16, BP 93/65, Pulse Ox 97% HEENT: Head normocephalic, atraumatic. Eyes: Extraocular muscles are intact. Pupils are equal, round and reactive to light and accommodation. Ears: No lesions. Nose appeared normal. Throat: No exudate or erythema. NECK: Supple. No JVD, no carotid bruit. No lymphadenopathy or thyromegaly. LUNGS: Diminished breath sounds bilaterally. Clear to auscultation. Percussion note normal. Chest symmetrical. HEART: S1, S2, no S3. No murmurs. No cyanosis or clubbing. No ascites. Pulses: Dorsalis pedis and posterior tibial pulses +1 to +2 both sides. ABDOMEN: Soft. Non-tender. Bowel sounds active. No CVA tenderness. No mass felt. EXTREMITIES: Trace pedal edema. Full range of motion of all extremities, equal. NEUROLOGIC: No focal deficit. Cranial nerves II through XII are grossly intact. No headache, no double vision or headache. SKIN: Not dry. Intact. Turgor-normal. LYMPHATIC: No palpable lymph nodes/no lymphedema. MUSCULOSKELETAL: Normal joints with no swelling. Muscle tone is normal. LAB REVIEW: 06/23/17 04:55 06/23/17 04:55 06/23/17 04:55: Sodium 141, Potassium 3.1 L D, Chloride 105, Carbon Dioxide 29, Anion Gap 10.1, BUN 28 H, Creatinine 0.94, Estimated GFR (MDRD) 57.00, BUN/ Creatinine Ratio 29.78, Glucose 86, Calcium 8.2, Total Bilirubin 0.5, AST 24, ALT 27, Alkaline Phosphatase 90, Total Protein 4.7 L, Albumin 2.0 L, Globulin 2.7, Albumin/Globulin Ratio 0.74 06/23/17 04:55: WBC 5.09 D, RBC 3.56 L, Hgb 11.2 L, Hct 32.9 L D, MCV 92.4, MCH 31.5 H, MCHC 34.0, RDW Coeff of Estuardo 16.1 H, Plt Count 138 L, Immature Gran % (Auto) 0.4, Neut % (Auto) 65.2, Lymph % (Auto) 22.0, [place] % (Auto) 7.1, Eos % (Auto) 4.7, Baso % (Auto) 0.6, Immature Gran # (Auto) 0.0, Neut # 3.3, Lymph # 1.1, [place] # 0.4, Eos # 0.2, Baso # 0.0 ASSESSMENT: 1. CHF/pneumonia being treated with antibiotics and steroids 2. Acute on chronic renal failure 3. Hypokalemia 4. Leg edema PLAN: 1. Potassium 20 mg b.i.d. for today only 2. Discharge planning discussed with family Plan and coordination of the patient's care discussed in the presence of Oyster Unloader and nurse. CONDITION: Stable SCRIBED BY: MARY BROWNING Farm Operations Technical Director scribed while in presence of service performed by Dr. Page/Jazmine Armstrong APRN on 06/23/17 ([id number])
[2017-06-23] MEDS ORDERED: LASIX IVP STA (12:17)
[2017-06-23] MEDS: OXYCODONE PO PRN ×2 (16:19→21:52)
[2017-06-23] MEDS: XARELTO PO SCH (17:05)
[2017-06-23] MEDS: XANAX PO PRN (21:52)
[2017-06-23] MEDS: MULTIVITAMIN TABLET PO SCH (21:52)
[2017-06-23] MEDS: LUNESTA PO PRN (21:53)
[2017-06-24] MEDS: DUONEB NEB SCH ×4 (04:40→20:28)
[2017-06-24] MEDS: KEFLEX PO SCH ×3 (05:37→20:11)
[2017-06-24] MEDS: NYSTATIN ORAL SUSP PO SCH ×4 (05:37→20:11)
[2017-06-24] MEDS: PROTONIX PO SCH (05:37)
[2017-06-24] MEDS: LASIX IVP SCH (06:07)
[2017-06-24] MEDS: COLACE PO SCH ×2 (08:46→20:10)
[2017-06-24] MEDS: COREG PO SCH ×2 (08:46→17:05)
[2017-06-24] MEDS: LEXAPRO PO SCH (08:47)
[2017-06-24] MEDS: NEURONTIN PO SCH ×3 (08:47→20:11)
[2017-06-24] MEDS: VALIUM PO SCH ×2 (08:47→20:11)
[2017-06-24] MEDS: LOVENOX SUBCUT SCH (09:18)
--- NOTE | 2017-06-24 09:48 | PCM.PROG ---
Attending Provider: ATTENDING PROVIDER: Dr. RONNY ROSE This patient is seen with Jazmine Armstrong, Nurse Practitioner. DATE OF SERVICE: 06/24/17 SUBJECTIVE: This 87 year old WHITE/ F was hospitalized 06/13/17. The patient is lying in bed resting comfortably. The patient's family is present and very supportive. Physical and occupational therapy have been arranged as well as lift chair, oxygen and breathing treatments at home. REVIEW OF SYSTEMS: CONSTITUTIONAL: Weakness. No night sweats. No fmalaise, lethargy. No fever or chills. HEENT: Eyes: No visual changes. No eye pain. No eye discharge. ENT: No runny nose. No epistaxis. No sinus pain. No odynophagia. No congestion. RESPIRATORY: No cough, no congestion. No hemoptysis. Shortness of breath. CARDIOVASCULAR: No angina symptoms. No CHF symptoms. No atypical chest pain for CAD. No palpitations. No orthopnea.. GASTROINTESTINAL: No abdominal pain. No nausea or vomiting. No diarrhea or constipation. No hematemesis. No hematochezia. GENITOURINARY: No urgency. No frequency. No dysuria. No hematuria. No obstructive symptoms. No discharge. No pain. No significant abnormal bleeding. MUSCULOSKELETAL: No musculoskeletal pain; no joint swelling. NEUROLOGICAL: Awake, alert, oriented to time, place and person. No headache. No neck pain. No syncope. No seizures. No dizziness. PSYCHIATRIC: Not anxious. No depression. No suicidal thoughts. No homicidal thoughts. SKIN: No rash. No lesions. No wounds. ENDOCRINE: No unexplained weight loss. No weight gain. HEMATOLOGIC/LYMPHATIC: No anemia. No purpura. No petechiae. No prolonged or excessive bleeding. No palpable lymph nodes. PHYSICAL EXAMINATION: GENERAL: The patient is awake, alert and oriented, lying in bed in no distress. VITAL SIGNS: Temperature 97.5 F, Pulse 92, Respiratory Rate 20, BP 114/70, Pulse Ox 100% HEENT: Head normocephalic, atraumatic. Eyes: Extraocular muscles are intact. Pupils are equal, round and reactive to light and accommodation. Ears: No lesions. Nose appeared normal. Throat: No exudate or erythema. NECK: Supple. No JVD, no carotid bruit. No lymphadenopathy or thyromegaly. LUNGS: Diminished breath sounds bilaterally. Clear to auscultation. Percussion note normal. Chest symmetrical. HEART: S1, S2, no S3. No murmurs. No cyanosis or clubbing. No ascites. Pulses: Dorsalis pedis and posterior tibial pulses +1 to +2 both sides. ABDOMEN: Soft. Non-tender. Bowel sounds active. No CVA tenderness. No mass felt. EXTREMITIES: Trace bilateral leg edema. Full range of motion of all extremities, equal. NEUROLOGIC: No focal deficit. Cranial nerves II through XII are grossly intact. No headache, no double vision or headache. SKIN: Not dry. Intact. Turgor-normal. LYMPHATIC: No palpable lymph nodes/no lymphedema. MUSCULOSKELETAL: Normal joints with no swelling. Muscle tone is normal. LAB REVIEW: 06/24/17 05:00 06/24/17 05:00 06/24/17 05:00: WBC 4.48 L, RBC 4.21, Hgb 13.0, Hct 39.4 D, MCV 93.6, MCH 30.9 , MCHC 33.0, RDW Coeff of Estuardo 16.3 H, Plt Count 156, Immature Gran % (Auto) 0.2 , Neut % (Auto) 60.0, Lymph % (Auto) 27.7, [place] % (Auto) 6.7, Eos % (Auto) 4.7, Baso % (Auto) 0.7, Immature Gran # (Auto) 0.0, Neut # 2.7, Lymph # 1.2, [place] # 0.3 L, Eos # 0.2, Baso # 0.0 06/24/17 05:00: Sodium 142, Potassium 3.6, Chloride 101, Carbon Dioxide 32 H, Anion Gap 12.6, BUN 25 H, Creatinine 1.03, Estimated GFR (MDRD) 51.00, BUN/ Creatinine Ratio 24.27, Glucose 84, Calcium 8.5, Total Bilirubin 0.6, AST 28, ALT 27, Alkaline Phosphatase 101, Total Protein 5.4 L, Albumin 2.2 L, Globulin 3.2, Albumin/Globulin Ratio 0.69 ASSESSMENT: 1. CHF/pneumonia being treated with antibiotics and steroids 2. Acute on chronic renal failure 3. Hypokalemia 4. Leg edema 5. CHF 6. Poor cardiac output PLAN: 1. Xarelto 20 mg daily 2. Keflex 500 mg t.i.d. times 7 days 3. Xanax p.r.n. 4. D/C home today 5. Lasix 40 mg daily 6. Encouraged to drink plenty of fluids 7. Encouraged to eat lots of protein 8. Home Health for PT/OT nursing assessment 9. D/C [place] Plan and coordination of the patient's care discussed in the presence of Manager Stylist and nurse. CONDITION: Stable SCRIBED BY: MARY BROWNING Lumber Kiln Operator scribed while in presence of service performed by Dr. Rose/Jazmine Armstrong APRN on 06/24/17 ([id number])
--- NOTE | 2017-06-24 12:04 | CM.DICTOOL ---
ADMISSION: 06/13/17 13:50 DISCHARGE: 2017 From [facility] DATE OF SERVICE: 06/24/17 FINAL DIAGNOSIS Pneumonia Continuation of IV antibiotics CHF Continuation of IV lasix LVEF 18% (-2017) Acute on Chronic Renal Failure Hypokalemia, resolved Leg Edema CAD Atrial Fibrillation Pacemaker Osteoarthritis Anxiety Depression GERD Insomnia LAST VITALS Temp Pulse Resp BP Pulse Ox 97.5 F L 92 H 20 114/70 100 06/23/17 17:49 06/24/17 05:13 06/24/17 05:13 06/23/17 17:49 06/24/17 05:13 ACTIVE HOME MEDICATIONS Carvedilol (Coreg) 3.125 mg PO BIDWM [facility] Last Admin: 06/24/17 08:46 Dose: 3.125 mg Diazepam (Valium) 5 mg PO BID [facility] Last Admin: 06/24/17 08:47 Dose: 5 mg Docusate Sodium (Colace) 100 mg PO BID [facility] Last Admin: 06/24/17 08:46 Dose: 100 mg Escitalopram Oxalate (Lexapro) 10 mg PO DAILY [facility] Last Admin: 06/24/17 08:47 Dose: 10 mg Eszopiclone (Lunesta) 1 mg PO BEDTIME PRN PRN Reason: Insomnia Last Admin: 06/23/17 21:53 Dose: 1 mg Gabapentin (Neurontin) 300 mg PO TID [facility] Last Admin: 06/24/17 08:47 Dose: 300 mg Multivitamins (Multivitamin Tablet) 1 tab PO BEDTIME [facility] Last Admin: 06/23/17 21:52 Dose: 1 tab Ondansetron HCl (Zofran ) 4 mg PO Q8H PRN PRN Reason: Nausea / Vomiting Oxycodone HCl (Oxycodone) 5 mg PO TID PRN PRN Reason: Severe Pain Last Admin: 06/23/17 21:52 Dose: 5 mg Pantoprazole Sodium (Protonix) 40 mg PO QDAC [facility] Last Admin: 06/24/17 05:37 Dose: 40 mg Rivaroxaban (Xarelto) 20 mg PO QPM [facility] Last Admin: 06/23/17 17:05 Dose: 15 mg Potassium Chloride (K-Dur) 20 meq Daily Last Admin: Nitroglycerin (Nitrostat) 0.4 mg SL Q5MIN x 3 Doses PRN Last Admin: Tramadol HCl (Ultram) 50 mg PO TID PRN PRN Reason: Mild Pain Last Admin: 06/21/17 15:48 Dose: 50 mg ALLERGIES [place] Adverse Reaction (Severe, Uncoded 04/08/17 13:23) Anaphylaxis NEW PRESCRIPTIONS: Xanax 0.25 mg 1 tablet daily prn anxiety Keflex 500 mg TID for 7 days Lasix 40 mg daily before breakfast SMOKING: Not Applicable DISEASE SPECIFIC EDUCATION: Medications Edema Activity Nutrition, increasing protein intake CHF LAB REVIEW: 06/24/17 05:00 06/24/17 05:00 06/24/17 05:00: WBC 4.48 L, RBC 4.21, Hgb 13.0, Hct 39.4 D, MCV 93.6, MCH 30.9 , MCHC 33.0, RDW Coeff of Estuardo 16.3 H, Plt Count 156, Immature Gran % (Auto) 0.2 , Neut % (Auto) 60.0, Lymph % (Auto) 27.7, [place] % (Auto) 6.7, Eos % (Auto) 4.7, Baso % (Auto) 0.7, Immature Gran # (Auto) 0.0, Neut # 2.7, Lymph # 1.2, [place] # 0.3 L, Eos # 0.2, Baso # 0.0 06/24/17 05:00: Sodium 142, Potassium 3.6, Chloride 101, Carbon Dioxide 32 H, Anion Gap 12.6, BUN 25 H, Creatinine 1.03, Estimated GFR (MDRD) 51.00, BUN/ Creatinine Ratio 24.27, Glucose 84, Calcium 8.5, Total Bilirubin 0.6, AST 28, ALT 27, Alkaline Phosphatase 101, Total Protein 5.4 L, Albumin 2.2 L, Globulin 3.2, Albumin/Globulin Ratio 0.69 PLAN: Discharge home Diet: Regular as tolerated, protein sources encouraged with each meal Activity: Gradually resume as tolerated, up to chair several times daily with legs elevated Turn frequently Elevate legs at night Oxygen at 3 Liters per nasal cannula Elevate Head of bed as tolerated Home Health Services have been arranged thru [facility] for: Physical and Occupational Therapy Evaluation and Treatment Nursing Visits for Medications, Assessment, Vital Signs, Edema, Nutrition, Weight monitoring, Bath aide Medications as listed on nursing discharge information sheet Increase Lasix to 40 mg daily An appointment is scheduled with Dr. Rose/Jazmine Armstrong APRN on at 1:15 pm Mrs. Saldaña is alert and oriented x 3. She is independent with feeding, but requires assistance of nursing staff for bathing, turning. She requires assistance of 2-3 staff members for transfers due to lower extremity weakness. Meal intakes have been fair at 25-50% for most meals, but breakfast intake today was 90%. She uses oxygen at 3 liters continuously. The baugh catheter was discontinued today and the patient has voided. Both upper extremities; especially the left are slightly edematous with areas of fading ecchymosis noted. The lower extremities remain slightly edematous today. The skin is intact and without decubitus ulcers. The edema is much improved today. All DME is currently in place in the home, including an adjustable bed. The family is supportive. Tee Rose MD Jazmine Armstrong APRN
[2017-06-24] MEDS: ULTRAM PO PRN (12:56)
[2017-06-24] MEDS: XARELTO PO SCH (17:03)
[2017-06-24] MEDS: MULTIVITAMIN TABLET PO SCH (20:11)
[2017-06-25] MEDS: DUONEB NEB SCH ×2 (05:00→10:19)
[2017-06-25] MEDS: NYSTATIN ORAL SUSP PO SCH (05:47)
[2017-06-25] MEDS: KEFLEX PO SCH (05:47)
[2017-06-25] MEDS: LASIX IVP SCH ×2 (05:47→05:49)
[2017-06-25] MEDS: PROTONIX PO SCH (05:47)
[2017-06-25 06:03] VITALS: TEMP 97.5
[2017-06-25 06:11] VITALS: BP 98/58
[2017-06-25] MEDS ORDERED: LASIX IM STA (08:31)
[2017-06-25] MEDS: NEURONTIN PO SCH (09:00)
[2017-06-25] MEDS: COLACE PO SCH (09:00)
--- NOTE | 2017-06-25 09:00 | ECHO2D ---
Date of Exam: 06/22/17 Ordering Physician: RONNY PAGE Room #: 102 Reason for Echo: CHF, PACEMAKER, HTN, EDEMA, HYPERCHOLESTEROLEMIA, COPD M-Mode Normal Adult Results LV Dimensions Normal Adult Results AoV Opening excursions >1.6 >1.6 LVEDD-base- 3.5-5.8 7.2 Ao root dimensions 2.0-3.7 3.5 LVESD-base- 3.1-4.6 L. Atrium dimensions 1.9-3.8 5.6 Post. Wall thickness 0.8-1.1 1.4 IV septum (thickness) 0.7-1.2 1.3 Post. Wall excursion 0.72-1.3 0.3 Septal motion 0.2 Systolic motion R. Ventricular cavity 1.5-2.0 NORMAL LVEF 60% 17% Paradoxical septal wall motion NORMAL 2-D : HYPOKINETIC LEFT VENTRICLE, ENLARGED LEFT ATRIAL AND LEFT VENTRICLE CAVITIES, NORMAL VALVES, MAYBE MITRAL VALVE PROLAPSE ON LEFT PARASTERNAL LONG AXIS AND APICAL FOUR CHAMBER VIEW, NO THROMBUS OR EFFUSION COLOR FLOW: MODERATE TRICUSPID REGURGITATION AND MITRAL REGURGITATION M-MODE: MV: MITRAL VALVE PROLAPSE LATE SYSTOLIC AV: NORMAL TV: NORMAL PV: PULMONARY HYPERTENSION CHAMBER SIZE: ENLARGED LEFT ATRIAL AND LEFT VENTRICLE CAVITIES WALL MOTION: HYPOKINETIC LEFT VENTRICLE PERICARDIUM: NORMAL INTERPRETATION: 1. LEFT VENTRICULAR HYPERTROPHY 2. MARKEDLY ENLARGED LEFT ATRIAL AND LEFT VENTRICLE CAVITIES 3. HYPOKINETIC LEFT VENTRICLE WITH EJECTION FRACTION 17% 4. MITRAL VALVE PROLAPSE LATE SYSTOLIC 5. MODERATE MITRAL REGURGITATION AND TRICUSPID REGURGITATION MTDD
[2017-06-25] MEDS: LOVENOX SUBCUT SCH (09:01)
[2017-06-25] MEDS: COREG PO SCH (09:01)
[2017-06-25] MEDS: OXYCODONE PO PRN (09:01)
[2017-06-25] MEDS: LEXAPRO PO SCH (09:03)
[2017-06-25] MEDS: VALIUM PO SCH (09:05)
--- NOTE | 2017-06-25 09:35 | PCM.PROG ---
Attending Provider: ATTENDING PROVIDER: Dr. RONNY PAGE DATE OF SERVICE: 06/25/17 SUBJECTIVE: This 87 year old WHITE/ F was hospitalized 06/13/17. The patient is hospitalized with pneumonia and chronic lung disease with CHF, which is stable, Stage 4, end-stage. The pneumonia part is better. No fever, no chills. No orthopnea. No PND. No fever, no chills. Shortness of breath on minimal exertion. REVIEW OF SYSTEMS: CONSTITUTIONAL: Positive for fatigue. No night sweats. lethargy. No fever or chills. HEENT: Eyes: No visual changes. No eye pain. No eye discharge. ENT: No runny nose. No epistaxis. No sinus pain. No odynophagia. No congestion. RESPIRATORY: No cough, no congestion. No hemoptysis. Shortness of breath on minimal exertion. No PND. CARDIOVASCULAR: No angina symptoms. No CHF symptoms. No atypical chest pain for CAD. No palpitations. No orthopnea.. GASTROINTESTINAL: No abdominal pain. No nausea or vomiting. No diarrhea or constipation. No hematemesis. No hematochezia. GENITOURINARY: No urgency. No frequency. No dysuria. No hematuria. No obstructive symptoms. No discharge. No pain. No significant abnormal bleeding. MUSCULOSKELETAL: No musculoskeletal pain; no joint swelling. NEUROLOGICAL: Awake, alert, oriented to time, place and person. No headache. No neck pain. No syncope. No seizures. No dizziness. PSYCHIATRIC: Not anxious. No depression. No suicidal thoughts. No homicidal thoughts. SKIN: No rash. No lesions. No wounds. ENDOCRINE: No unexplained weight loss. No weight gain. HEMATOLOGIC/LYMPHATIC: No anemia. No purpura. No petechiae. No prolonged or excessive bleeding. No palpable lymph nodes. PHYSICAL EXAMINATION: GENERAL: The patient is awake, alert and oriented, lying in bed in no distress. VITAL SIGNS: Temperature 97.5 F, Pulse 115, Respiratory Rate 24, BP 98/58, Pulse Ox 95% HEENT: Head normocephalic, atraumatic. Eyes: Extraocular muscles are intact. Pupils are equal, round and reactive to light and accommodation. Ears: No lesions. Nose appeared normal. Throat: No exudate or erythema. NECK: Supple. No JVD, no carotid bruit. No lymphadenopathy or thyromegaly. LUNGS: Decreased breath sounds. Clear to auscultation. Percussion note normal. Chest symmetrical. HEART: S1, S2, no S3. No murmurs. No cyanosis or clubbing. No ascites. Pulses: Dorsalis pedis and posterior tibial pulses +1 to +2 both sides. ABDOMEN: Soft. Non-tender. Bowel sounds active. No CVA tenderness. No mass felt. EXTREMITIES: 1+ pitting edema, which is chronic. Full range of motion of all extremities, equal. NEUROLOGIC: No focal deficit. Cranial nerves II through XII are grossly intact. No headache, no double vision or headache. SKIN: Warm and dry. Intact. Turgor-normal. LYMPHATIC: No palpable lymph nodes/no lymphedema. MUSCULOSKELETAL: Normal joints with no swelling. Muscle tone is normal. LAB REVIEW: 06/24/17 05:00 06/24/17 05:00 ASSESSMENT: 1. PNEUMONIA, RESOLVED 2. CONGESTIVE HEART FAILURE, END-STAGE 3. PACEMAKER 4. ISCHEMIC CARDIOMYOPATHY WITH POOR EJECTION FRACTION PLAN: 1. D/C home today 2. Encourage the patient to eat more protein 3. Lasix 40 mg IM 4. Continue all other medications 5. Hospice discussed with family. The patient will be discharged home. Plan and coordination of the patient's care discussed in the presence of Data Management Associate and nurse. CONDITION: STABLE; PROGNOSIS IS POOR. SCRIBED BY: MARY BROWNING Hole Digger scribed while in presence of service performed by Dr. RONNY PAGE on 06/25/17 ([id number])
--- NOTE | 2017-06-26 11:02 | PN ---
DATE OF SERVICE: 06/23/17 SUBJECTIVE: The patient was seen and examined with the Nurse Practitioner. The patient's condition is steadily improving but has more swelling today. Will give IV Lasix 40mg. Potassium has improved. The pneumonia has improved clinically. The patient 's echo showed poor ejection fraction yesterday, LV ejection fraction was 18-20% , enlarged LV cavity. PROGNOSIS: Poor CONDITION: Stable TIME SPENT: More than 30 minutes. Plan and coordination of the patient's care discussed in the presence of nurse. CRISTINA
--- NOTE | 2017-06-27 08:56 | PN ---
DATE OF SERVICE: 06/21/17 SUBJECTIVE: 87 year old white female hospitalized with congestive heart failure and pneumonia. The patient has been in the swing bed and her condition has improved. Today she looks a lot better. Appetite has improved. The patient had entire workup and everything done at [facility]. It was followed by the physician that I don't have any detailed records from there. We will do an echocardiogram to evaluate LV function. We will just do 2DM mode we will not do complete echo. REVIEW OF SYSTEMS: CONSTITUTIONAL: No night sweats. No fatigue, malaise, lethargy. No fever or chills. HEENT: Eyes: No visual changes. No eye pain. No eye discharge. ENT: No runny nose. No epistaxis. No sinus pain. No sore throat. No odynophagia. No congestion. RESPIRATORY: No cough, no congestion. No hemoptysis. Shortness of breath on minimal exertion. CARDIOVASCULAR: No angina symptoms. No CHF symptoms. No atypical chest pain for CAD. No palpitations. No orthopnea. GASTROINTESTINAL: No abdominal pain. No nausea or vomiting. No diarrhea or constipation. No hematemesis. No hematochezia. GENITOURINARY: No urgency. No frequency. No dysuria. No hematuria. No obstructive symptoms. No discharge. No pain. No significant abnormal bleeding. MUSCULOSKELETAL: No musculoskeletal pain; no joint swelling. NEUROLOGICAL: No headache. No neck pain. No syncope. No seizures. No dizziness. PSYCHIATRIC: Not anxious. No depression. No suicidal thoughts. No homicidal thoughts. SKIN: No rash. No lesions. No wounds. ENDOCRINE: No unexplained weight loss. No weight gain. HEMATOLOGIC/LYMPHATIC: No anemia. No purpura. No petechiae. No prolonged or excessive bleeding. No palpable lymph nodes. PHYSICAL EXAMINATION: GENERAL: The patient is oriented to time, place and person. VITAL SIGNS: Temperature 97, pulse 108, respiratory rate 16, blood pressure 106 /60 and pulse ox 97%. HEENT: Head normocephalic, atraumatic. Eyes: Extraocular muscles are intact. Pupils are equal, round and reactive to light and accommodation. Ears: No lesions. Nose appeared normal. Throat: No exudate or erythema. NECK: Supple. No JVD, no carotid bruit. No lymphadenopathy or thyromegaly. LUNGS: Decreased breath sounds but clear to auscultation. Percussion note normal. Chest symmetrical. HEART: S1, S2, no S3. No murmurs. No cyanosis or clubbing. No ascites. Pulses: Dorsalis pedis and posterior tibial pulses +1 to +2 both sides. ABDOMEN: Soft. Nontender. Bowel sounds active. No CVA tenderness. No mass felt. EXTREMITIES: No edema. Full range of motion of all extremities, equal. NEUROLOGIC: No focal deficit. Cranial nerves II through XII are grossly intact. No headache, no double vision or headache. SKIN: Not dry. Intact. Turgor - normal. LYMPHATIC: No palpable lymph nodes/no lymphedema. MUSCULOSKELETAL: Normal joints with no swelling. Muscle tone is normal. ASSESSMENT: 1. CHF seems to be under control 2. Pneumonitis seems to be under control 3. Pacemaker CONDITION: Stable. TIME SPENT: More than 30 minutes. Plan and coordination of the patient's care discussed in the presence of nurse. CRISTINA
--- NOTE | 2017-06-27 09:03 | PN ---
DATE OF SERVICE: SUBJECTIVE: The patient's condition seems to have improved clinically at least the is in the room. REVIEW OF SYSTEMS: CONSTITUTIONAL: No night sweats. No fatigue, malaise, lethargy. No fever or chills. More alert today. HEENT: Eyes: No visual changes. No eye pain. No eye discharge. ENT: No runny nose. No epistaxis. No sinus pain. No sore throat. No odynophagia. No congestion. RESPIRATORY: No cough, no congestion. No hemoptysis. No shortness of breath. CARDIOVASCULAR: No angina symptoms. No CHF symptoms. No atypical chest pain for CAD. No palpitations. No orthopnea. GASTROINTESTINAL: No abdominal pain. No nausea or vomiting. No diarrhea or constipation. No hematemesis. No hematochezia. Appetite seems to have improved. GENITOURINARY: No urgency. No frequency. No dysuria. No hematuria. No obstructive symptoms. No discharge. No pain. No significant abnormal bleeding. MUSCULOSKELETAL: No musculoskeletal pain; no joint swelling. NEUROLOGICAL: No headache. No neck pain. No syncope. No seizures. No dizziness. PSYCHIATRIC: Not anxious. No depression. No suicidal thoughts. No homicidal thoughts. SKIN: No rash. No lesions. No wounds. ENDOCRINE: No unexplained weight loss. No weight gain. HEMATOLOGIC/LYMPHATIC: No anemia. No purpura. No petechiae. No prolonged or excessive bleeding. No palpable lymph nodes. PHYSICAL EXAMINATION: GENERAL: The patient is oriented to time, place and person. HEENT: Head normocephalic, atraumatic. Eyes: Extraocular muscles are intact. Pupils are equal, round and reactive to light and accommodation. Ears: No lesions. Nose appeared normal. Throat: No exudate or erythema. NECK: Supple. No JVD, no carotid bruit. No lymphadenopathy or thyromegaly. LUNGS: Decreased breath sounds with dull noted on percussion. Chest symmetrical. HEART: S1, S2, questionable S3. No murmurs. No cyanosis or clubbing. No ascites. Pulses: Dorsalis pedis and posterior tibial pulses +1 to +2 both sides. ABDOMEN: Soft. Nontender. Bowel sounds active. No CVA tenderness. No mass felt. EXTREMITIES: Trace edema. Full range of motion of all extremities, equal. NEUROLOGIC: No focal deficit. Cranial nerves II through XII are grossly intact. No headache, no double vision or headache. SKIN: Not dry. Intact. Turgor - normal. LYMPHATIC: No palpable lymph nodes/no lymphedema. MUSCULOSKELETAL: Normal joints with no swelling. Muscle tone is normal. ASSESSMENT: 1. CHF stage 4 2. Pneumonia seems to have resolved clinically 3. Endstage ischemia cardiomyopathy 4. Pacemaker PLAN: 1. Have supportive measure 2. Continue IV Lasix intermittently with PO 3. Continue antibiotics, NEBS treatment 4. The patient had echocardiogram done with ejection fraction 20% with enlarged LA cavity and LV cavity. The patient has mitral valve prolapse. CONDITION: Stable. TIME SPENT: More than 30 minutes. Plan and coordination of the patient's care discussed in the presence of nurse. CRISTINA
--- NOTE | 2017-06-27 13:32 | PN ---
DATE OF SERVICE: 06/24/17 SUBJECTIVE: The patient was seen today with Nurse Practitioner. The patient is feeling a lot better. CHF under control. Pneumonia has resolved. Clinically she is better. The patient has endstage CHF, stage. The patient will be discharged home. PROGNOSIS: Poor TIME SPENT: More than 30 minutes. Plan and coordination of the patient's care discussed in the presence of nurse. CRISTINA
== END 2017-06-25 12:46 | disposition home or self-care (01) | DRG 291 ==
LOC: MEDSURG A 13:50
PROVIDERS: ADMIT Internal Medicine; ATTEND Internal Medicine
DX: I50.9 Heart failure, unspecified (principal); J18.9 Pneumonia, unspecified organism; N39.0 Urinary tract infection, site not specified; J90 Pleural effusion, not elsewhere classified; E46 Unspecified protein-calorie malnutrition; N17.9 Acute kidney failure, unspecified; I12.9 Hypertensive chronic kidney disease with stage 1 through stage 4 chronic kidney disease, or unspecified chronic kidney disease; N18.3 Chronic kidney disease, stage 3 (moderate); I25.5 Ischemic cardiomyopathy; E87.6 Hypokalemia; E86.0 Dehydration; R53.1 Weakness; I95.9 Hypotension, unspecified; I42.0 Dilated cardiomyopathy; J44.9 Chronic obstructive pulmonary disease, unspecified; R06.02 Shortness of breath; I10 Essential (primary) hypertension; I25.10 Atherosclerotic heart disease of native coronary artery without angina pectoris; I48.91 Unspecified atrial fibrillation; I51.7 Cardiomegaly; K21.9 Gastro-esophageal reflux disease without esophagitis; F32.9 Major depressive disorder, single episode, unspecified; M54.32 Sciatica, left side; M54.31 Sciatica, right side; B96.20 Unspecified Escherichia coli [E. coli] as the cause of diseases classified elsewhere; Z90.49 Acquired absence of other specified parts of digestive tract; Z95.0 Presence of cardiac pacemaker; Z79.01 Long term (current) use of anticoagulants; Z79.899 Other long term (current) drug therapy
CPT/HCPCS: 36415; 80053; 82550; 84132; 84484; 85025; 93005; 93010; 94640; 97802; 99308; 99316